=== PATIENT | female | born 1930 | race Caucasian/White ===

== ENCOUNTER → 2018-12-14 | Day surgery (SDC) | payer MEDICARE ==
[2018-12-13 14:11] LABS: BASOPHILS # (AUTO) 0.1 (0.0-0.1); BASOPHILS % 0.6 % (0.0-1.0); EOSINOPHILS # (AUTO) 0.1 (0.0-0.4); EOSINOPHILS % 1.6 % (0.0-6.0); HEMATOCRIT 42.2 % (34.2-44.1); HEMOGLOBIN 13.4 g/dL (12.0-16.0); LYMPHOCYTES # (AUTO) 1.8 (1.0-3.2); LYMPHOCYTES % 22.3 % (18.0-39.1); MEAN CORPUSCULAR HEMOGLOBIN 29.6 pg (28-32); MEAN CORPUSCULAR HGB CONC 31.8 g/dL (31-35); MEAN CORPUSCULAR VOLUME 93.2 fL (81-99); MONOCYTES # (AUTO) 0.7 (0.2-0.8); MONOCYTES % 8.2 % (4.4-11.3); NEUTROPHILS # (AUTO) 5.3 (2.1-6.9); PLATELET COUNT 217 x10e3/uL (140-360); RED BLOOD COUNT 4.53 x10e6/uL (3.6-5.1)
[~2018-12-14] MED LIST: ADVAIR 250-501 EACH INH; ARTIFICIAL TEAR15 ML OU; ASPERCREME 4% TOP; COREG3.125 MG PO; DILTIAZEM HCL60 MG PO; DOCUSATE SODIU100 MG PO; DULCOLAX5 MG PO; FUROSEMIDE20 MG PO; GABAPENTIN300 MG PO; IPRAT-ALBUT 0.5-3 ML IH; KLOR-CON 1010 MEQ PO; LAXATIVE SUPPOS10 MG PR; LEVALBUTER1.25 MG/0. INH; LEVEMIR100 UNIT/1 SQ; METAMUCIL FIBE3.4 GM PO; MULTIVITAMINS1 EAC6 PO; NOVOLOG100 UNIT/1 SQ; PANTOPRAZOLE SO40 MG PO; PROPOFOL IV EMULSION 10 MG/ML 50 ML VIAL ONE; SYNTHROID100 MCG PO; TRAZODONE HCL100 MG PO; XARELTO10 MG PO
--- OUTSIDE RECORDS SUMMARY | 2018-12-14 05:48 | XMS REPORT | Clinical Summary ---
Author Author [facility] Organization [facility] Address Unknown Phone Unavailable Care Team Providers Care Tanker Service Attendant Name Role Phone Ayaz Burrell MD PCP Allergies No Known Allergies Medications Not on file Active Problems Not on file Encounters Care Team Description Date Type Specialty Ayaz Burrell MD Pain of both hip joints 04/23/2018 Hospital Radiology Encounter Ayaz Burrell MD Pain of both hip joints 04/23/2018 Hospital Radiology Encounter Ayaz Burrell MD Arthralgia of hip, unspecified laterality (Primary Dx) 04/07/2018 Transcribe Access Orders Ayaz Burrell MD Pain of both hip joints (Primary Dx) 04/06/2018 Transcribe Access Orders after 12/13/2017 Social History Date Tobacco Use Types Packs/Day Years Used Never Assessed Sex Assigned at Date Recorded Not on file Industry Job Start Date Occupation Not on file Not on file Not on file Travel End Travel History Travel Start No recent travel history available. Last Filed Vital Signs Not on file Plan of Treatment Health Maintenance Due Date Last Done Comments SHINGLES VACCINES (#1) 1982 65+ PNEUMOCOCCAL VACCINE 1997 06/09/2010 (2 of 2 - PPSV23) INFLUENZA VACCINE 11/25/2018 Procedures Comments Procedure Name Priority Date/Time Associated Diagnosis MRI LOWER EXTREMITY JOINT Routine 04/23/2018 Pain of both hip joints W WO CONTRAST RIGHT 2:54 PM [facility] MRI LOWER EXTREMITY JOINT Routine 04/23/2018 Pain of both hip joints W WO CONTRAST LEFT 2:52 PM [facility] ESTIMATED GFR Routine 04/23/2018 1:16 PM [facility] POC CREATININE Routine 04/23/2018 1:16 PM [facility] after 12/13/2017 Results * MRI Lower Extremity Joint W Wo Contrast Right (04/23/2018 2:54 PM [facility]) Specimen Narrative Performed At EXAM: MRI LOWER EXTREMITY JOINT W WO CONTRAST RIGHT [facility] CLINICAL DATA:M25.551 Pain in right hip, M25.552 Pain in left hip, HIP PAIN COMPARISON: NONE. FINDINGS: 1. Bone marrow:No marrow edema, stress change/fracture or avascular necrosis. 2. Joint/Cartilage: Moderate osteoarthrosis of the hip with high-grade chondromalacia of the anterosuperior acetabulum. There is also some high-grade chondromalacia of the posterior acetabulum. High-grade chondromalacia of the anterosuperior femoral head. 3. Labrum: Degenerative tearing of the anterior, anterosuperior, and superior labrum. This extends to the level of the posterior labrum. There is perilabral cyst formation which is most prominent involving the anterosuperior labrum. 4. Femoroacetabular Impingement Assessment: Femoral head neck offset is appropriate. No evidence of acetabular dysplasia. 5. Extra Articular Hip Impingement Assessment: *Subspine: No excess bone or proliferative changes at the anterior inferior iliac spine. *Iliopsoas:The iliopsoas tendon is intact and unremarkable. *Quadratus Femoris: The quadratus femoris space is not narrowed. No specific findings of ischiofemoral impingement. 6. Gluteal Tendons: Insertional abductor tendinopathy and peritendinitis with partial tearing of the gluteus minimus footprint and lateral footprint of gluteus medius with associated trochanteric bursitis. 7. Hamstring Origins: Tendinosis without tear 8. Sciatic Nerve: Proximal sciatic nerve unremarkable. 9. Bursitis: Mild greater trochanteric bursitis 10. Major Muscle Groups: No muscle strains, edema or asymmetric atrophy. 11. Joint effusion: Small hip joint effusion.. 12. Soft tissues: Trabeculation of the bladder with small diverticula. Correlate for bladder outlet obstruction. Scattered diverticula of the sigmoid colon. Uterus appears absent. 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 2.Insertional abductor tendinopathy with peritendinitis, greater trochanteric bursitis, and partial tearing of the gluteus minimus footprint and lateral footprint of gluteus medius. 3.Additional findings and details as above. [facility]-[id number] Procedure Note Hm Interface, Radiology Results - 04/23/2018 3:26 PM [facility] EXAM: MRI LOWER EXTREMITY JOINT W WO CONTRAST RIGHT CLINICAL DATA: M25.551 Pain in right hip, M25.552 Pain in left hip, HIP PAIN COMPARISON: NONE. FINDINGS: 1. Bone marrow:No marrow edema, stress change/fracture or avascular necrosis. 2. Joint/Cartilage: Moderate osteoarthrosis of the hip with high-grade chondromalacia of the anterosuperior acetabulum. There is also some high-grade chondromalacia of the posterior acetabulum. High-grade chondromalacia of the anterosuperior femoral head. 3. Labrum: Degenerative tearing of the anterior, anterosuperior, and superior labrum. This extends to the level of the posterior labrum. There is perilabral cyst formation which is most prominent involving the anterosuperior labrum. 4. Femoroacetabular Impingement Assessment: Femoral head neck offset is appropriate. No evidence of acetabular dysplasia. 5. Extra Articular Hip Impingement Assessment: * Subspine: No excess bone or proliferative changes at the anterior inferior iliac spine. * Iliopsoas:The iliopsoas tendon is intact and unremarkable. * Quadratus Femoris: The quadratus femoris space is not narrowed. No specific findings of ischiofemoral impingement. 6. Gluteal Tendons: Insertional abductor tendinopathy and peritendinitis with partial tearing of the gluteus minimus footprint and lateral footprint of gluteus medius with associated trochanteric bursitis. 7. Hamstring Origins: Tendinosis without tear 8. Sciatic Nerve: Proximal sciatic nerve unremarkable. 9. Bursitis: Mild greater trochanteric bursitis 10. Major Muscle Groups: No muscle strains, edema or asymmetric atrophy. 11. Joint effusion: Small hip joint effusion.. 12. Soft tissues: Trabeculation of the bladder with small diverticula. Correlate for bladder outlet obstruction. Scattered diverticula of the sigmoid colon. Uterus appears absent. IMPRESSION: 1. 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 2. Insertional abductor tendinopathy with peritendinitis, greater trochanteric bursitis, and partial tearing of the gluteus minimus footprint and lateral footprint of gluteus medius. 3. Additional findings and details as above. [facility]-[id number] Performing Organization Address City/State/Zipcode Phone Number [facility] [address] [place] [address] * MRI Lower Extremity Joint W Wo Contrast Left (04/23/2018 2:52 PM [facility]) Specimen Narrative Performed At [facility] EXAM: MRI LOWER EXTREMITY JOINT W WO CONTRAST LEFT CLINICAL DATA:M25.551 Pain in right hip, M25.552 Pain in left hip, Hip painchronicinitial exam COMPARISON: None available FINDINGS: 1. Bone marrow:No marrow edema, stress change/fracture or avascular necrosis. 2. Joint/Cartilage: There is mild to moderate osteoarthrosis of the left hip with diffuse chondral thinning. 3. Labrum: Degenerative tearing of the anterior and anterosuperior labrum extending to the level of the superior labrum with perihilar labral cyst formation which propagates anteriorly along the left iliopsoas tendon. 4. Femoroacetabular Impingement Assessment: Femoral head neck offset appears appropriate. 5. Extra Articular Hip Impingement Assessment: *Subspine: No excess bone or proliferative changes at the anterior inferior iliac spine. *Iliopsoas:The iliopsoas tendon is intact and unremarkable. *Quadratus Femoris: The quadratus femoris space is not narrowed. No specific findings of ischiofemoral impingement. 6. Gluteal Tendons: Insertional abductor tendinopathy and peritendinitis with mild greater trochanteric bursitis. There is partial tearing of the gluteus minimus footprint. 7. Hamstring Origins: Hamstring tendinosis without evidence of tear. 8. Sciatic Nerve: Proximal sciatic nerve unremarkable. 9. Bursitis: Mild greater trochanteric bursitis 10. Major Muscle Groups: No muscle strains, edema or asymmetric atrophy. 11. Joint effusion: Small hip joint effusion with synovitis.. 12. Soft tissues: Trabeculation of the bladder with small diverticula. Uterus appears absent. Few diverticula of the sigmoid colon. No free fluid in the pelvis. No definite pelvic adenopathy. IMPRESSION: 1.Mild to moderate osteoarthrosis of the left hip with partial thickness chondromalacia and degenerative labral tearing with perilabral cyst formation as detailed above. 2.Insertional abductor tendinopathy with peritendinitis and mild trochanteric bursitis. There is partial tearing of the gluteus minimus footprint. 3.Trabecular thickening of the bladder with bladder diverticula. Correlate for bladder outlet obstruction. 4.Additional findings and details as above. [facility]-[id number] Procedure Note Interface, Radiology Results Incoming - 04/23/2018 3:09 PM [facility] EXAM: MRI LOWER EXTREMITY JOINT W WO CONTRAST LEFT CLINICAL DATA: M25.551 Pain in right hip, M25.552 Pain in left hip, Hip pain chronic initial exam COMPARISON: None available FINDINGS: 1. Bone marrow:No marrow edema, stress change/fracture or avascular necrosis. 2. Joint/Cartilage: There is mild to moderate osteoarthrosis of the left hip with diffuse chondral thinning. 3. Labrum: Degenerative tearing of the anterior and anterosuperior labrum extending to the level of the superior labrum with perihilar labral cyst formation which propagates anteriorly along the left iliopsoas tendon. 4. Femoroacetabular Impingement Assessment: Femoral head neck offset appears appropriate. 5. Extra Articular Hip Impingement Assessment: * Subspine: No excess bone or proliferative changes at the anterior inferior iliac spine. * Iliopsoas:The iliopsoas tendon is intact and unremarkable. * Quadratus Femoris: The quadratus femoris space is not narrowed. No specific findings of ischiofemoral impingement. 6. Gluteal Tendons: Insertional abductor tendinopathy and peritendinitis with mild greater trochanteric bursitis. There is partial tearing of the gluteus minimus footprint. 7. Hamstring Origins: Hamstring tendinosis without evidence of tear. 8. Sciatic Nerve: Proximal sciatic nerve unremarkable. 9. Bursitis: Mild greater trochanteric bursitis 10. Major Muscle Groups: No muscle strains, edema or asymmetric atrophy. 11. Joint effusion: Small hip joint effusion with synovitis.. 12. Soft tissues: Trabeculation of the bladder with small diverticula. Uterus appears absent. Few diverticula of the sigmoid colon. No free fluid in the pelvis. No definite pelvic adenopathy. IMPRESSION: 1. Mild to moderate osteoarthrosis of the left hip with partial thickness chondromalacia and degenerative labral tearing with perilabral cyst formation as detailed above. 2. Insertional abductor tendinopathy with peritendinitis and mild trochanteric bursitis. There is partial tearing of the gluteus minimus footprint. 3. Trabecular thickening of the bladder with bladder diverticula. Correlate for bladder outlet obstruction. 4. Additional findings and details as above. [facility]-[id number] Performing Organization Address City/[facility]/Zipcode Phone Number [facility] [address] [place] [address] * Estimated GFR (04/23/2018 1:16 PM [facility]) Pathologist [facility] Estimated GFR 31 (A) mL/min/1.73 m2 PAW PAW Comment: EMERGENCY CARE CatergoryUnitsOn License Of [facility] rpretation G1 >=90 Normal or high G2 60-89Mildly decreased A6n25-04 Mildly to moderately decreased C4p46-89 Moderately to severely decreased G4 15-29Severely decreased G5 <15Kidney failure The eGFR was calculated using the Chronic Kidney Disease Epidemiology Collaboration (CKD-EPI) equation. Interpretation is based on recommendations of the National Kidney Foundation-Kidney Disease Outcomes Quality Initiative (NKF-KDOQI) published in 2014. Specimen Blood Performing Organization Address [facility] Hospital[facility] Phone Number [facility] [address] [place] [address] [facility] [place] [address] CENTER * POC creatinine (04/23/2018 1:16 PM REPEATER CHIEF) [facility] POC creatinine 1.5 (H) 0.5 - 0.9 mg/dl PAW PAW Comment: EMERGENCY CARE Meter ID: [id number] EXIRA Rn Orthopaedic: Vipin Khalil Specimen Blood Performing Organization Address City/[facility]/[place] [address] [address] PATH[facility] [place] [address] CENTER after 12/13/2017 Insurance Type Payer Benefit Subscriber ID Effective Phone Address Plan / Dates Group HMO [employer]US TEXANPLUS xxxxxxxxx 2017-P [id number] resent Medicaid MEDICAID MEDICAID xxxxxxxxx 2017-P resent Advance Directives For more information, please contact: [phone] Patient Conference Coordinator Explanation Type Date Recorded Advance Directives, 09/26/2015 7:29 PM Living Will and Medical Power of Parking Ramp Attendant
--- OUTSIDE RECORDS SUMMARY | 2018-12-14 05:49 | XMS REPORT | Clinical Summary ---
Author Author NAVEEN [facility] [employer] [facility] Address Unknown Phone Unavailable Care Team Providers Care Services Delivery Driver Name Role Phone Florencio Venegas MD PCP Allergies Comments Active Allergy Reactions Severity Noted Date Stomach buring Codeine Other (See Low 11/01/2015 Comments) Ibuprofen Swelling Low 11/01/2015 Medications End Date Status Medication Sig Dispensed Refills Start Date Active LORazepam (ATIVAN) 0.5 MG Take 0.5 mg 0 tablet by mouth 2 (two) times daily Patient takes at 6pm and 10pm. Active levothyroxine (SYNTHROID, Take 100 mcg 0 LEVOTHROID) 100 MCG by mouth tablet Every morning on an empty stomach. Active valsartan (DIOVAN) 160 MG Take 160 mg 0 tablet by mouth daily. Active gabapentin (NEURONTIN) Take 300 mg 0 300 MG capsule by mouth 3 (three) times daily. Active fluticasone-salmeterol Inhale 1 puff 0 (ADVAIR) 250-50 mcg/dose by mouth via diskus inhaler inhaler every 12 (twelve) hours. Active insulin detemir (LEVEMIR) Inject 18 0 100 unit/mL (3 mL) InPn Units injection subcutaneousl y every morning . Active insulin aspart (NOVOLOG) Inject 6 0 100 unit/mL InPn Units subcutaneousl y 2 (two) times daily with breakfast and dinner . Active pyridoxine, vitamin B6, Take 100 mg 0 (B-6) 100 MG tablet by mouth daily. Active cholecalciferol, vitamin Take 1,000 0 D3, 1,000 unit capsule Units by mouth daily. Active ascorbic acid (VITAMIN C) Take 1,000 mg 0 1000 MG tablet by mouth daily. Active biotin 10,000 mcg Cap Take 1 tablet 0 by mouth daily. Active potassium chloride Take 10 mEq 0 (KLOR-CON) 10 MEQ CR by mouth tablet every other day. Active aspirin 81 MG EC tablet Take 81 mg by 0 mouth daily. Active ipratropium-albuterol Take 3 mLs by 0 (DUO-NEB) 0.5 mg-3 mg(2.5 nebulization mg base)/3 mL nebulizer as needed for solution Wheezing. 08/26/2019 Active dilTIAZem (CARDIZEM) 90 Take 1 tablet 0 MG tablet (90 mg total) 9 by mouth every 12 (twelve) hours. 08/25/2019 Active levalbuterol (XOPENEX) Take 0.25 mLs 1 each 0 1.25 mg/0.5 mL nebulizer (0.63 mg 9 solution total) by nebulization every 6 (six) hours. Active pantoprazole (PROTONIX) Take 1 tablet 0 40 MG tablet (40 mg total) 9 by mouth daily. Active rivaroxaban (XARELTO) 15 Take 1 tablet 0 mg Tab tablet (15 mg total) 9 by mouth daily with dinner. 08/26/2019 Active furosemide (LASIX) 40 MG Take 0.5 90 tablet 0 tablet tablets (20 9 mg total) by mouth daily. 08/25/2018 Discontinued albuterol (PROVENTIL) 2.5 Take 0.5 mLs 0 mg/0.5 mL Nebu nebulizer (2.5 mg 6 solution total) by nebulization every 4 (four) hours. 08/25/2018 Discontinued vancomycin (VANCOCIN) 1G Inject 1,000 0 IV in NS 250 ML mg 6 (ADD-VANTAGE) intravenously daily. 09/04/2018 bisacodyl (DULCOLAX) 10 Place 1 12 0 mg suppository suppository suppository 9 (10 mg total) rectally daily as needed for up to 10 days. 09/05/2018 predniSONE (DELTASONE) 20 Take 2 0 MG tablet tablets (40 9 mg total) by mouth daily for 10 days. 09/04/2018 cefdinir (OMNICEF) 300 MG Take 1 5 capsule 0 capsule capsule (300 9 mg total) by mouth daily for 10 days. 08/26/2018 Discontinued furosemide (LASIX) 40 MG Take 1 tablet 90 tablet 0 tablet (40 mg total) 9 by mouth daily. Active Problems Problem Noted Date SOB (shortness of breath) 08/18/2018 Hemarthrosis involving knee joint, right 03/11/2016 Leukocytosis 03/07/2016 Type 2 diabetes mellitus 03/07/2016 Hyponatremia 03/06/2016 Sepsis 03/03/2016 Acute renal failure, unspecified acute renal failure type 03/02/2016 Dizziness 02/27/2016 Orthostatic hypotension 11/02/2015 Unsteady gait 11/02/2015 Colon cancer 11/02/2015 Diabetes mellitus 11/02/2015 CKD stage 3 due to type 2 diabetes mellitus 11/02/2015 Arthritis of left ankle 11/01/2015 Peripheral neuropathy Encounters Care Team Description Date Type Specialty Keli Foster MD Ramiz, Naila, MD SOB (shortness of breath) (Primary Dx); Cough; Wheezing; Pneumonia of both lungs due to infectious organism, unspecified part of lung; Hyponatremia; SHARIFA (acute kidney injury) (HCC) 08/18/2018 [facility] General Internal Medicine - Encounter 08/26/2018 08/18/2018 Orders Only General Internal Medicine 08/18/2018 Travel after 12/13/2017 Family History Medical History Relation Name Comments Emphysema Father Heart disease Mother Cancer Sister Relation Name Status Comments Father Mother Sister Social History Date Tobacco Use Types Packs/Day Years Used Never Smoker Smokeless Tobacco: Never Used Alcohol Use Drinks/Week oz/Week Comments No Sex Assigned at Date Recorded Not on file Industry Job Start Date Occupation Not on file Not on file Not on file Travel End Travel History Travel Start No recent travel history available. Last Filed Vital Signs Time Taken Vital Sign Reading 08/26/2018 7:00 PM CDT Blood Pressure 149/74 08/26/2018 8:30 PM CDT Pulse 89 08/26/2018 7:00 PM CDT Temperature 36.2 C (97.1 F) 08/26/2018 8:30 PM CDT Respiratory Rate 20 08/26/2018 8:30 PM CDT Oxygen Saturation 100% 08/26/2018 12:30 AM CDT Inhaled Oxygen 30% Concentration 08/25/2018 6:38 AM CDT Weight 93 kg (205 lb) 08/18/2018 6:47 PM CDT Height 162.6 cm (5' 4") 08/25/2018 6:38 AM CDT Body Mass Index 35.19 Plan of Treatment Care Team Description Date Type Specialty Stephen Rose MD [address] [place] [id number] [phone] 12/20/2018 Hospital Encounter Procedures Comments Procedure Name Priority Date/Time Associated Diagnosis RHYTHM STRIP - SCAN 08/30/2018 10:51 AM CDT RHYTHM STRIP - SCAN 08/30/2018 10:50 AM CDT RHYTHM STRIP - SCAN 08/27/2018 3:40 PM CDT REPORT OF PROCEDURE - 08/27/2018 ENDOSCOPY SCAN 3:40 PM CDT POCT-GLUCOSE METER Routine 08/26/2018 7:51 PM CDT CBC W/PLT COUNT & AUTO Routine 08/26/2018 DIFFERENTIAL 6:22 AM CDT COMPREHENSIVE METABOLIC Routine 08/26/2018 PANEL 6:22 AM CDT CBC W/PLT COUNT & AUTO Routine 08/26/2018 DIFFERENTIAL 6:22 AM CDT BASIC METABOLIC PANEL (7) Routine 08/26/2018 6:22 AM CDT XR CHEST 1 VIEW Routine 08/26/2018 PORTABLE/BEDSIDE 5:56 AM CDT POCT-GLUCOSE METER Routine 08/26/2018 5:43 AM CDT POCT-GLUCOSE METER Routine 08/26/2018 12:49 AM CDT POCT-GLUCOSE METER Routine 08/25/2018 8:06 PM CDT VANCOMYCIN LEVEL, TROUGH Timed 08/25/2018 7:17 PM CDT POCT-GLUCOSE METER Routine 08/25/2018 12:55 PM CDT B-TYPE NATRIURETIC FACTOR Routine 08/25/2018 (BNP) 6:38 AM CDT POCT-GLUCOSE METER Routine 08/25/2018 6:26 AM CDT POCT-GLUCOSE METER Routine 08/24/2018 8:36 PM CDT POCT-GLUCOSE METER Routine 08/24/2018 3:59 PM CDT POCT-GLUCOSE METER Routine 08/24/2018 11:35 AM CDT (MANUAL DIFFERENTIAL) Routine 08/24/2018 6:22 AM CDT CBC W/PLT COUNT & AUTO Routine 08/24/2018 DIFFERENTIAL 6:22 AM CDT CBC W/PLT COUNT & AUTO Routine 08/24/2018 DIFFERENTIAL 6:22 AM CDT B-TYPE NATRIURETIC FACTOR Routine 08/24/2018 (BNP) 6:22 AM CDT BASIC METABOLIC PANEL (7) Routine 08/24/2018 6:22 AM CDT POCT-GLUCOSE METER Routine 08/24/2018 6:21 AM CDT XR CHEST 1 VIEW Routine 08/24/2018 PORTABLE/BEDSIDE 6:15 AM CDT POCT-GLUCOSE METER Routine 08/23/2018 8:28 PM CDT VANCOMYCIN LEVEL, TROUGH Timed 08/23/2018 4:25 PM CDT POCT-GLUCOSE METER Routine 08/23/2018 11:27 AM CDT POCT-GLUCOSE METER Routine 08/23/2018 6:34 AM CDT XR CHEST PA OR AP 1 VIEW Routine 08/23/2018 IN DEPT. 6:21 AM CDT XR ABDOMEN 1 VIEW Routine 08/23/2018 6:21 AM CDT CBC W/PLT COUNT & AUTO Routine 08/23/2018 DIFFERENTIAL 4:19 AM CDT CBC W/PLT COUNT & AUTO Routine 08/23/2018 DIFFERENTIAL 4:19 AM CDT B-TYPE NATRIURETIC FACTOR Routine 08/23/2018 (BNP) 4:19 AM CDT BASIC METABOLIC PANEL (7) Routine 08/23/2018 4:19 AM CDT POCT-GLUCOSE METER Routine 08/22/2018 7:59 PM CDT POCT-GLUCOSE METER Routine 08/22/2018 11:50 AM CDT B-TYPE NATRIURETIC FACTOR Routine 08/22/2018 (BNP) 5:21 AM CDT BASIC METABOLIC PANEL (7) Routine 08/22/2018 5:21 AM CDT POCT-GLUCOSE METER Routine 08/21/2018 10:43 PM CDT ECG 12-LEAD Routine 08/21/2018 10:38 PM CDT MAGNESIUM Routine 08/21/2018 8:27 PM CDT BASIC METABOLIC PANEL (7) Routine 08/21/2018 8:27 PM CDT POCT-GLUCOSE METER Routine 08/21/2018 5:05 PM CDT BLOOD GAS, ARTERIAL Routine 08/21/2018 4:39 PM CDT XR ABDOMEN 1 VIEW STAT 08/21/2018 4:35 PM CDT B-TYPE NATRIURETIC FACTOR STAT 08/21/2018 (BNP) 12:42 PM CDT VANCOMYCIN LEVEL, TROUGH Timed 08/21/2018 12:42 PM CDT POCT-GLUCOSE METER Routine 08/21/2018 11:26 AM CDT POCT-GLUCOSE METER Routine 08/21/2018 8:39 AM CDT ECHOCARDIOGRAM REPORT - 08/20/2018 SCAN 9:24 PM CDT POCT-GLUCOSE METER Routine 08/20/2018 4:50 PM CDT POCT-GLUCOSE METER Routine 08/20/2018 8:45 AM CDT POCT-GLUCOSE METER Routine 08/20/2018 7:40 AM CDT REPORT OF PROCEDURE - 08/20/2018 ENDOSCOPY SCAN 7:30 AM CDT POCT-GLUCOSE METER Routine 08/19/2018 4:34 PM CDT 2D ECHO W/ DOPPLER Routine 08/19/2018 (CW/PW/COLOR) 4:[address] CHEST WITHOUT IV STAT 08/19/2018 CONTRAST 9:50 AM CDT POCT-GLUCOSE METER Routine 08/19/2018 9:13 AM CDT TROPONIN I STAT 08/19/2018 2:26 AM CDT TROPONIN I STAT 08/18/2018 11:13 PM CDT ECG 12-LEAD Routine 08/18/2018 8:54 PM CDT Procedure Note - Interface, External Ris In - 08/18/2018 8:53 PM CDT Ventricula r Rate 69 BPM Atrial Rate 69 BPM P-R Interval 274 ms QRS Duration 100 ms Q-T Interval 434 ms QTC Calculatio n(Bazett) 465 ms R [place] -28 degrees T [place] 45 degrees Sinus rhythm with 1st degree AV block Otherwise normal ECG When compared with ECG of 7 15:30, premature supraventr icular complexes are no longer present MA interval has increased Criteria for Septal infarct are no longer present Nonspecifi c T wave abnormalit y no longer evident in Anterior leads ECG 12-LEAD STAT 08/18/2018 8:54 PM CDT LACTIC ACID, VENOUS STAT 08/18/2018 8:46 PM CDT BLOOD CULTURE STAT 08/18/2018 8:46 PM CDT BLOOD CULTURE STAT 08/18/2018 8:46 PM CDT TROPONIN I STAT 08/18/2018 8:37 PM CDT RESPIRATORY PANEL [facility] Routine 08/18/2018 8:33 PM CDT RAPID INFLUENZA A&B STAT 08/18/2018 SCREEN 8:33 PM CDT CBC W/PLT COUNT & AUTO STAT 08/18/2018 DIFFERENTIAL 8:32 PM CDT TSH/FREE T4 IF INDICATED STAT 08/18/2018 8:32 PM CDT COMPREHENSIVE METABOLIC STAT 08/18/2018 PANEL 8:32 PM CDT B-TYPE NATRIURETIC FACTOR STAT 08/18/2018 (BNP) 8:32 PM CDT CBC W/PLT COUNT & AUTO STAT 08/18/2018 DIFFERENTIAL 8:32 PM CDT XR CHEST 2 VIEWS STAT 08/18/2018 7:59 PM CDT ED ECG INTERPRETATION Routine 08/18/2018 6:52 PM CDT after 12/13/2017 Results * RHYTHM STRIP - SCAN (08/30/2018 10:51 AM CDT) Only the most recent of 3 results within the time period is included. Narrative Performed At * EKG-SCANNED (08/27/2018 3:40 PM CDT) Only the most recent of 2 results within the time period is included. Narrative Performed At * POC-Glucose meter (08/26/2018 7:51 PM CDT) Only the most recent of 24 results within the time period is included. POC-Glucose Meter 339 (H)Comment: TESTED AT [facility] 70 - 110 mg/dL [facility] [address] [facility] [place] [address] Specimen Blood Performing Organization Address City/State/Zipcode Phone Number [facility] [address] [place] [address] [facility] * CBC with platelet count + automated diff (08/26/2018 6:22 AM CDT) Only the most recent of 4 results within the time period is included. WBC 16.8 (H) 4.0 - 10.0 K/L [facility] RBC 4.00 4.00 - 5.00 M/L [facility] Hemoglobin 11.9 (L) 12.0 - 15.5 GM/DL [facility] Hematocrit 35.4 (L) 36.0 - 46.0 % [facility] MCV 88.5 82.0 - 99.0 fL [facility] MCH 29.8 27.0 - 33.0 pg [facility] MCHC 33.6 32.0 - 36.0 GM/DL [facility] RDW 12.3 12.0 - 15.0 % [facility] Platelets 214 150 - 430 K/CU MM [facility] MPV 9.2 6.0 - 11.5 fL [facility] nRBC 0 0 - 0 /100 WBC [facility] % Neutros 85 % [facility] % Lymphs 6 % [facility] % Monos 8 % [facility] % Eos 0 % [facility] % Baso 0 % [facility] # Neutros 14.20 (H) 1.80 - 8.00 K/L [facility] # Lymphs 1.07 (L) 1.48 - 4.50 K/L [facility] # Monos 1.35 (H) 0.00 - 1.30 K/L [facility] # Eos 0.01 0.00 - 0.50 K/L [facility] # Baso 0.01 0.00 - 0.20 K/L [facility] Immature 1 (H) 0 - 0 % [facility] Granulocytes-Relative Specimen Blood Performing Organization Address City/State/Zipcode Phone Number [facility] [address] [address] [facility] [address] [address] * Comprehensive metabolic panel (08/26/2018 6:22 AM CDT) Only the most recent of 2 results within the time period is included. Protein, Total 6.5 6.0 - 8.5 gm/dL [facility] Albumin 3.7 3.5 - 5.0 g/dL [facility] Alkaline Phosphatase 50 30 - 115 U/L [facility] Total Bilirubin 0.4 0.1 - 1.2 mg/dL [facility] Sodium 135 135 - 148 meq/L [facility] Potassium 3.6 3.6 - 5.5 meq/L [facility] Chloride 97 (L) 98 - 106 meq/L [facility] CO2 28 20 - 29 meq/L [facility] BUN 39 (H) 10 - 26 mg/dL [facility] Creatinine 1.30 (H) 0.50 - 1.20 mg/dL [facility] Glucose 245 (H) 70 - 110 mg/dL [facility] Calcium 9.2 8.5 - 10.5 mg/dL [facility] AST 15 5 - 40 U/L [facility] ALT 21 5 - 50 U/L [facility] EGFR 39Comment: ESTIMATED GFR IS mL/min/1.73 sq m [facility] NOT ACCURATE CREATININE CLEARANCE IN PREDICTING GLOMERULAR FILTRATION RATE. ESTIMATED GFR IS NOT APPLICABLE FOR DIALYSIS PATIENTS. Specimen Blood Performing Organization Address City/State/Zipcode Phone Number [facility] [place] [address] [facility] [place] [address] * Basic Metabolic Panel (08/26/2018 6:22 AM CDT) Only the most recent of 5 results within the time period is included. Sodium 135 135 - 148 meq/L [facility] Potassium 3.6 3.6 - 5.5 meq/L [facility] Chloride 97 (L) 98 - 106 meq/L [facility] CO2 28 20 - 29 meq/L [facility] BUN 39 (H) 10 - 26 mg/dL [facility] Creatinine 1.30 (H) 0.50 - 1.20 mg/dL [facility] Glucose 245 (H) 70 - 110 mg/dL [facility] Calcium 9.2 8.5 - 10.5 mg/dL [facility] EGFR 39Comment: ESTIMATED GFR IS mL/min/1.73 sq m [facility] NOT ACCURATE CREATININE CLEARANCE IN PREDICTING GLOMERULAR FILTRATION RATE. ESTIMATED GFR IS NOT APPLICABLE FOR DIALYSIS PATIENTS. Specimen Blood Performing Organization Address City/[facility]/Zipcode Phone Number [facility] [place] [address] [facility] [place] [address] * XR chest 1 view portable / bedside (08/26/2018 5:56 AM CDT) Only the most recent of 2 results within the time period is included. Specimen Narrative Performed At FINAL REPORT GE RIS CHEST AP PORTABLE ERECT Comparison exam: 08/24/2018 History provided: Pneumonia Heart size magnified by projection. Lungs grossly free of acute disease and vascularity normal. Signed: Briana Gupta MD Report Verified Date/Time:08/26/2018 07:57:26 Reading Location: [facility] Diagnostic Imaging Reading Room - [facility] 1310.12 Procedure Note Interface, External Ris In - 08/26/2018 7:59 AM CDT FINAL REPORT CHEST AP PORTABLE ERECT Comparison exam: 08/24/2018 History provided: Pneumonia Heart size magnified by projection. Lungs grossly free of acute disease and vascularity normal. Signed: Briana Gupta MD Report Verified Date/Time: 08/26/2018 07:57:26 Reading Location: [facility] Diagnostic Imaging Reading Room - [facility] [phone] Performing Organization Address City/[facility] Phone Number [employer] * Vancomycin level, trough (08/25/2018 7:17 PM CDT) Only the most recent of 3 results within the time period is included. Vancomycin Tr 22.0 (H) 10.0 - 20.0 ug/mL [facility] Specimen Blood Performing Organization Address City/[facility]/Zipcode Phone Number [facility] [place] [address] [facility] [place], [place] [id number] * B-type Natriuretic Factor (BNP) (08/25/2018 6:38 AM CDT) Only the most recent of 6 results within the time period is included. BNP 382 (H) 0 - 100 pg/mL [facility] Specimen Blood Performing Organization Address City/[facility] Phone Number [facility] [place] [address] [facility] [place] [address] * Manual Differential (08/24/2018 6:22 AM CDT) % Neutros (manual) 94 % [facility] % Lymphs (manual) 4 % [facility] % Monos (manual) 1 % [facility] % Eos (manual) 0 % [facility] % Baso (manual) 0 % [facility] % Bands (manual) 1 0 - 10 % [facility] # Neutros (manual) 12.88 (H) 1.80 - 8.00 K/L [facility] # Lymphs (manual) 0.55 (L) 1.48 - 4.50 K/L [facility] # Monos (manual) 0.14 0.00 - 1.30 K/L [facility] # Eos (manual) 0.00 0.00 - 0.50 K/L [facility] # Baso (manual) 0.00 0.00 - 0.20 K/L [facility] # Bands (manual) 0.1 0.0 - 0.8 K/L [facility] Total Counted 100 [facility] Bands plus Segmented 13.02 [facility] Neutrophils WBC Morphology Normal [facility] Platelet Morphology Normal [facility] RBC Morphology Normal [facility] Specimen Blood Performing Organization Address City/[facility] Phone Number [facility] [place] [address] [facility] [place] [address] * XR chest PA or AP 1 view in dept (08/23/2018 6:21 AM CDT) Specimen Narrative Performed At FINAL REPORT GE RIS AP view of the chest dated 08/23/2018 CLINICAL INFORMATION: pna Comment:Heart is enlarged. Pulmonary vasculature is unremarkable. Previously noted. Interstitial pulmonary disease in the right lower lobe has resolved. Lungs are clear. No pulmonary infiltrate or pleural effusion is present. There is interval placement of nasogastric tube. Signed: Abdullahi Salas MD Report Verified Date/Time:08/23/2018 07:32:25 Reading Location: [facility] Radiology Reading Room Procedure Note Interface, External Ris In - 08/23/2018 7:34 AM CDT FINAL REPORT AP view of the chest dated 08/23/2018 CLINICAL INFORMATION: pna Comment: Heart is enlarged. Pulmonary vasculature is unremarkable. Previously noted. Interstitial pulmonary disease in the right lower lobe has resolved. Lungs are clear. No pulmonary infiltrate or pleural effusion is present. There is interval placement of nasogastric tube. Signed: Abdullahi Salas MD Report Verified Date/Time: 08/23/2018 07:32:25 Reading Location: [facility] Radiology Reading Room Performing Organization Address City/State/Zipcode Phone Number [facility] * XR abdomen / KUB 1 view (08/23/2018 6:21 AM CDT) Only the most recent of 2 results within the time period is included. Specimen Narrative Performed At FINAL REPORT GE RIS Comparison: 08/21/2018 TECHNIQUE: Frontal images of the abdomen FINDINGS: Bowel gas pattern is nonspecific. No gross free intraperitoneal air. Tip of nasogastric projects in distal stomach. Electrical generator projects over the right abdomen. No acute skeletal abnormality. Signed: Emile Alonso MD Report Verified Date/Time:08/23/2018 08:21:00 Reading Location: [facility] Radiology Reading Room Procedure Note Interface, External Ris In - 08/23/2018 8:23 AM CDT FINAL REPORT Comparison: 08/21/2018 TECHNIQUE: Frontal images of the abdomen FINDINGS: Bowel gas pattern is nonspecific. No gross free intraperitoneal air. Tip of nasogastric projects in distal stomach. Electrical generator projects over the right abdomen. No acute skeletal abnormality. Signed: Emile Alonso MD Report Verified Date/Time: 08/23/2018 08:21:00 Reading Location: [facility] Radiology Reading Room Performing Organization Address City/[facility] Phone Number [facility] * ECG 12 lead (08/21/2018 10:38 PM CDT) Only the most recent of 2 results within the time period is included. Specimen Narrative Performed At Ventricular Rate 113 BPM [facility] MUSE Atrial Rate 234 BPM QRS Duration 98 ms Q-T Interval 322 ms QTC Calculation(Bazett) 441 ms R [place] -23 degrees T [place] 118 degrees Atrial fibrillation with rapid ventricular response Possible Anterior infarct , age undetermined Abnormal ECG When compared with ECG of 18-AUG-2018 20:54, Atrial fibrillation has replaced Sinus rhythm Vent. rate has increased BY44 BPM Confirmed by Jameel Sarmiento ([id number]) on 09/07/2018 9:55:05 PM Procedure Note Interface, External Ris In - 09/07/2018 9:55 PM CDT Ventricular Rate 113 BPM Atrial Rate 234 BPM QRS Duration 98 ms Q-T Interval 322 ms QTC Calculation(Bazett) 441 ms R [place] -23 degrees T [place] 118 degrees Atrial fibrillation with rapid ventricular response Possible Anterior infarct , age undetermined Abnormal ECG When compared with ECG of 18-AUG-2018 20:54, Atrial fibrillation has replaced Sinus rhythm Vent. rate has increased BY 44 BPM Confirmed by Jameel Sarmiento ([id number]) on 09/07/2018 9:55:05 PM Performing Organization Address [facility] Phone Number [facility] * Magnesium (08/21/2018 8:27 PM CDT) Magnesium 2.3 1.5 - 3.0 mg/dL [facility] Specimen Blood Performing Organization Address City/[facility] Phone Number [facility] [place] [address] [facility] [place] [address] * Blood gas, arterial (08/21/2018 4:39 PM CDT) pH, Arterial 7.35 7.35 - 7.45 [facility] pCO2, Arterial 51 (H) 35 - 45 mmHg [facility] pO2, Arterial 82 80 - 90 mmHg [facility] O2 Sat, Arterial 95.9 (L) 96.0 - 97.0 % [facility] HCO3, Arterial 28 21 - 29 mmol/L [facility] Base Excess, Arterial 1.3 -2.0 - 3.0 mmol/L [facility] Patient Temperature 37.1 C [facility] Specimen Blood, Arterial Performing Organization Address City/State/Zipcode Phone Number [facility] [place] [address] [facility] [place] [address] * ECHOCARDIOGRAM REPORT - SCAN (08/20/2018 9:24 PM CDT) Narrative Performed At * 2D Echo W/Doppler(CW/PW/Color) (08/19/2018 4:16 PM CDT) Ejection Fraction Est EF is 55-60% [facility] Specimen Narrative Performed At Transthoracic Echocardiography Report (TTE) [facility] Demographics [facility] Patient NameJUSTIN BROTHERS Date of Study08/19/2018 Female Visit [id number] Unknown Room [id number] Number Date of 1930Referring Physician Age 88 year(s)SonographNeville Nunn, ALICE Interpreting Jameel Sarmiento PhysicianMD Alecia Pop MD Procedure Type of Study TTE procedure:2DECHO W DOPPLER(CW/PW/COLOR) (Routine) Indications:Shortness of breath. Contrast Medium: Definity. Amount - 2 ml Height: 64 inches Weight: 93.44 kg (206 lbs) BSA: 1.98 m^2 BMI: 35.36 kg/m^2 HR: 75 bpm BP: 132/92 mmHg Summary TDS with PEV contrast used lvef appears normal. valves not well seen, but there is unlikely to be significant or MR by doppler/color Signature Findings Technical Quality: Limited visualization due to body habitus. Left Ventricle Normal left ventricular chamber size. Normal wall thickness. Normal overall left ventricular systolic function. No apparent segmental wall motion abnormalities. Estimated LVEF is 55-60%. Left AtriumNormal size left atrium. Right VentricleNormal right ventricle structure and function. Right Atrium Normal right atrium. Atrial SeptumThe interatrial septum is not well visualized. Aortic Valve Normal AoV structure. There is no aortic stenosis. There is no aortic regurgitation. Mitral Valve MV is not well; function appears normal by Doppler visualized. Tricuspid ValveThe tricuspid valve is not well visualized. No evidence of tricuspid regurgitation. Pulmonic Valve Normal PV structure. A trace of pulmonary regurgitation. AortaAortic root size (SInus of Valsalva diameter) is normal . PericardiumNo evidence of pericardial effusion. IVC/SVC/PA/PV/PleuralThe inferior vena cava is not visualized. Chambers/Structures Left Atrium LA Dimension: 3.6 cm Left Ventricle LVIDd: 4.8 cmLVEDV:111 ml LVIDs: 2.9 cmLVESV:24.4 ml LV Septum Diastolic: 0.9 cmLVEF 2D Cube: 78 % LV PW Diastolic: 0.9 cm LV FS: 39.6 % LVOT Diameter: 1.9 cm LVEF: 78 % Right Ventricle RV Diast Dim.: 2.3 cm Aorta Ao Root S of Lucia.: 3 cm Ascending Aorta: 2.8 cm Doppler/Quantitative Measurements Mitral Valve MV Peak E-Wave: 1.02 m/sMV Peak A-Wave: 0.99 m/s P1/2t: 57 msecE/A Ratio: 1.03 Peak Gradient: 4.16 mmHg Deceleration Time: 194 msec MV Area (PHT): 3.86 cm^2 MV Dmitriy. Peak: Aortic Valve Peak Velocity: 1.27 m/s Mean Velocity: 0.86 m/s Peak Gradient: 6.45 mmHgMean Gradient: 3 mmHg AV Area (continuity): 2.64 cm^2 AV VTI: 26.7 cm Cusp Separation: 1.9 cm AV DVI: 0.93 LVOT Peak Velocity: 1 m/sPeak Gradient: 4 mmHg Mean Velocity: 0.7 m/sMean Gradient: 2 mmHg LVOT Diameter: 1.9 cm LVOT VTI: 24.9 cm LVOT Area: 2.84 cm^2LVOT SV:70.56 ml LVOT CO: 5.29 l/min LVOT CI: 2.67 l/min/m^2 Pulmonic Valve Peak Velocity: 1.18 m/s Peak Gradient: 5.57 mmHg MA ED Velocity: 1.16 m/s Procedure Note Interface, External Ris In - 08/20/2018 10:21 AM CDT Transthoracic Echocardiography Report (TTE) Demographics Patient Name JUSTIN BROTHERS Date of Study 08/19/2018 Gender Female Visit Number [id number] Race Unknown Room Number 3N08 Number Date of 1930 Referring Physician Age 88 year(s) Director Nicu Rylie Nunn, ALICE Interpreting Jameel Sarmiento, Physician MD Alecia Pop MD Procedure Type of Study TTE procedure:2DECHO W DOPPLER(CW/PW/COLOR) (Routine) Indications:Shortness of breath. Contrast Medium: Definity. Amount - 2 ml Height: 64 inches Weight: 93.44 kg (206 lbs) BSA: 1.98 m^2 BMI: 35.36 kg/m^2 HR: 75 bpm BP: 132/92 mmHg Summary TDS with PEV contrast used lvef appears normal. valves not well seen, but there is unlikely to be significant or MR by doppler/color Signature Findings Technical Quality: Limited visualization due to body habitus. Left Ventricle Normal left ventricular chamber size. Normal wall thickness. Normal overall left ventricular systolic function. No apparent segmental wall motion abnormalities. Estimated LVEF is 55-60%. Left Atrium Normal size left atrium. Right Ventricle Normal right ventricle structure and function. Right Atrium Normal right atrium. Atrial Septum The interatrial septum is not well visualized. Aortic Valve Normal AoV structure. There is no aortic stenosis. There is no aortic regurgitation. Mitral Valve MV is not well; function appears normal by Doppler visualized. Tricuspid Valve The tricuspid valve is not well visualized. No evidence of tricuspid regurgitation. Pulmonic Valve Normal PV structure. A trace of pulmonary regurgitation. Aorta Aortic root size (SInus of Valsalva diameter) is normal . Pericardium No evidence of pericardial effusion. IVC/SVC/PA/PV/Pleural The inferior vena cava is not visualized. Chambers/Structures Left Atrium LA Dimension: 3.6 cm Left Ventricle LVIDd: 4.8 cm LVEDV:111 ml LVIDs: 2.9 cm LVESV:24.4 ml LV Septum Diastolic: 0.9 cm LVEF 2D Cube: 78 % LV PW Diastolic: 0.9 cm LV FS: 39.6 % LVOT Diameter: 1.9 cm LVEF: 78 % Right Ventricle RV Diast Dim.: 2.3 cm Aorta Ao Root S of Lucia.: 3 cm Ascending Aorta: 2.8 cm Doppler/Quantitative Measurements Mitral Valve MV Peak E-Wave: 1.02 m/s MV Peak A-Wave: 0.99 m/s P1/2t: 57 msec E/A Ratio: 1.03 Peak Gradient: 4.16 mmHg Deceleration Time: 194 msec MV Area (PHT): 3.86 cm^2 MV Dmitriy. Peak: Aortic Valve Peak Velocity: 1.27 m/s Mean Velocity: 0.86 m/s Peak Gradient: 6.45 mmHg Mean Gradient: 3 mmHg AV Area (continuity): 2.64 cm^2 AV VTI: 26.7 cm Cusp Separation: 1.9 cm AV DVI: 0.93 LVOT Peak Velocity: 1 m/s Peak Gradient: 4 mmHg Mean Velocity: 0.7 m/s Mean Gradient: 2 mmHg LVOT Diameter: 1.9 cm LVOT VTI: 24.9 cm LVOT Area: 2.84 cm^2 LVOT SV:70.56 ml LVOT CO: 5.29 l/min LVOT CI: 2.67 l/min/m^2 Pulmonic Valve Peak Velocity: 1.18 m/s Peak Gradient: 5.57 mmHg MA ED Velocity: 1.16 m/s Performing Organization Address City/State/Zipcode Phone Number [facility] * CT chest without IV contrast (08/19/2018 9:50 AM CDT) Specimen Narrative Performed At FINAL REPORT [employer] CT of the Chest dated 08/19/2018 COMPARISON: March 06, 2016 CLINICAL INFORMATION: Cough, persistent, xray nondiagnostic Comment:Axial images of the chest were obtained from thoracic inlet to the upper abdomen without intravenous contrast. This exam was performed according to our departmental dose-optimization program, which includes automated exposure control, adjustment of the mA and/or kV according to patient size and/or use of interactive reconstruction technique. Heart is enlarged. Atherosclerotic calcification is seen in the thoracic aorta and coronary arteries. Great vessels are unremarkable. No adenopathy in the mediastinum or perihilar region. Trachea and mainstem bronchi are patent. There is interval increase in number of pulmonary nodules. The largest nodule measures approximately 5 mm in diameter in the right upper lobe. A focal airspace disease is seen in the right lower lobe in the right lower lobe with air bronchograms suggestive of pneumonia. Scarring versus subsegmental atelectasis is seen in the right mid lobe, lingula, and left lung base. No pleural effusion or pleural based mass is seen. Visualized upper abdomen demonstrates a 2.1 x 2.5 cm cyst is seen in the midpole right kidney. Impression: 1. Right lower lobe pneumonia. 2. Nonspecific pulmonary nodules. Recommend follow-up with repeat CT of the chest in 12 months. 3. Cardiomegaly. Signed: Abdullahi Salas MD Report Verified Date/Time:08/19/2018 10:24:51 Reading Location: [facility] B1 C013Y CT Body Reading Room Procedure Note Interface, External Ris In - 08/19/2018 10:27 AM CDT FINAL REPORT CT of the Chest dated 08/19/2018 COMPARISON: March 06, 2016 CLINICAL INFORMATION: Cough, persistent, xray nondiagnostic Comment: Axial images of the chest were obtained from thoracic inlet to the upper abdomen without intravenous contrast. This exam was performed according to our departmental dose-optimization program, which includes automated exposure control, adjustment of the mA and/or kV according to patient size and/or use of interactive reconstruction technique. Heart is enlarged. Atherosclerotic calcification is seen in the thoracic aorta and coronary arteries. Great vessels are unremarkable. No adenopathy in the mediastinum or perihilar region. Trachea and mainstem bronchi are patent. There is interval increase in number of pulmonary nodules. The largest nodule measures approximately 5 mm in diameter in the right upper lobe. A focal airspace disease is seen in the right lower lobe in the right lower lobe with air bronchograms suggestive of pneumonia. Scarring versus subsegmental atelectasis is seen in the right mid lobe, lingula, and left lung base. No pleural effusion or pleural based mass is seen. Visualized upper abdomen demonstrates a 2.1 x 2.5 cm cyst is seen in the midpole right kidney. Impression: 1. Right lower lobe pneumonia. 2. Nonspecific pulmonary nodules. Recommend follow-up with repeat CT of the chest in 12 months. 3. Cardiomegaly. Signed: Abdullahi Salas MD Report Verified Date/Time: 08/19/2018 10:24:51 Reading Location: [facility] B1 C013Y CT Body Reading Room Performing Organization Address City/State/Zipcode Phone Number RIS * Troponin I (08/19/2018 2:26 AM CDT) Only the most recent of 3 results within the time period is included. Troponin I 0.01 0.00 - 0.03 ng/mL [facility] Specimen Blood Narrative Performed At Troponin I (TnI) levels must be interpreted in the context of the presenting [facility] symptoms and the clinical findings. Elevated TnI levels indicate myocardial damage, but are not specific for ischemic heart disease. Elevated TnI levels are seen in patients with other cardiac conditions (including myocarditis and congestive heart failure), and slight TnI elevations occur in patients with other conditions, including sepsis, renal failure, acidosis, acute neurological disease, and persistent tachyarrhythmia. Performing Organization Address City/State/Zipcode Phone Number [facility] [address] [place] [address] [facility] [place] [address] * Lactic acid, venous (08/18/2018 8:46 PM CDT) Lactate, Venous 0.6 0.5 - 2.2 mmol/L [facility] Specimen Blood Performing Organization Address City/[facility] Phone Number [facility] [place] [address] [facility] [place] [address] * Blood Culture - Routine (Left Venipuncture) (08/18/2018 8:46 PM CDT) Only the most recent of 2 results within the time period is included. Result No growth in 5 days [facility] Specimen Blood Performing Organization Address City/[facility]/Zipcode Phone Number [address] [address] MEDICAL CENTER * Respiratory Panel [facility] (08/18/2018 8:33 PM CDT) Human Metapneumovirus Not detected Not detected, [facility] Rhinovirus Not detected Not detected, [facility] Influenza A Not detected Not detected, [facility] INFLUENZA A (NO SUBTYPE) Not detected, [facility] Influenza A subtype H1 Not detected, [facility] Influenza A Subtype H3 Not detected, [facility] Influenza A Subtype Not detected, [facility] H1-2009 [facility] Influenza B Not detected Not detected, [facility] Respiratory Syncytial Not detected Not detected, [facility] Virus [facility] Parainfluenza Virus 1 Not detected Not detected, [facility] Parainfluenza Virus 2 Not detected Not detected, [facility] Parainfluenza virus 3 Not detected Not detected, [facility] Parainfluenza Virus 4 Not detected Not detected, [facility] Adenovirus Not detected Not detected, [facility] Coronavirus 229E Not detected Not detected, [facility] Coronavirus HKU1 Not detected Not detected, [facility] Coronavirus NL63 Not detected Not detected, [facility] Coronavirus OC43 Not detected Not detected, [facility] Bordetella Pertussis Not detected Not detected, [facility] Chlamydophila Pneumoniae Not detected Not detected, [facility] Mycoplasma Pneumoniae Not detected Not detected, [facility] Specimen Nasopharyngeal Narrative Performed At Other viruses and bacteria not targeted by this PCR panel cannot be excluded; [facility] therefore clinical correlation and follow up of serology, culture results, and [facility] other molecular studies is required. The results are not intended to be used as the sole means for clinical diagnosis or patient management decisions. This sample was tested at the [facility] Molecular Diagnostics Laboratory using the BioSwarm64 FilmArray Respiratory Panel. It is FDA cleared and has been verified and approved by the [facility] for clinical use on nasal swab specimens. It is not FDA-cleared for use on bronchial wash/lavage samples. However, for this sample type, validation was performed and test characteristics were determined and approved, by [facility] Molecular Diagnostics laboratory for clinical use under the Clinical Laboratory Improvement Amendments (CLIA) of 1988 requirements. Therefore, FDA clearance is not required.This laboratory is CLIA-certified and [employer] (CAP)-accredited to perform high complexity testing. Performing Organization Address City/State/Zipcode Phone Number [facility] [address], [place] [id number] [facility] * Influenza antigen A & B (Rapid) (08/18/2018 8:33 PM CDT) Rapid Influenza A Antigen Negative Negative, Inconclusive [facility] Rapid influenza B Antigen Negative Negative, Inconclusive [facility] Specimen Nasopharyngeal Performing Organization Address City/[facility] Phone Number [facility] [place] [address] [facility] [place] [address] * TSH/Free T4 If Indicated (08/18/2018 8:32 PM CDT) TSH 4.82 0.35 - 5.50 uIU/mL [facility] Specimen Blood Performing Organization Address [facility] Phone Number [facility] [place] [place] [address] [facility] [place] [address] * XR chest 2 views (08/18/2018 7:59 PM CDT) Specimen Narrative Performed At FINAL REPORT [facility] EXAMINATION: 2 view chest CLINICAL INDICATION: Cough IMPRESSION: Compared with 03/11/2016. A midline sternotomy is again noted. Overall aeration of the lungs has improved in the interval. However, opacities are noted in both lungs with a predominantly basilar distribution which are similar but possibly increased from previous. Although a component may reflect atelectasis or scarring, pulmonary edema or a pneumonia should also be considered. An underlying mass lesion cannot be excluded on today's limited study. No definite evidence of a large pleural effusion or pneumothorax. Several of the ribs have irregular margins suggesting possible sequela from fracture, chronicity indeterminate. If there is persistent clinical concern, consider chest CT. Dedicated rib series could also be performed if there is concern for acute or subacute rib fracture. Signed: Sara Grace MD Report Verified Date/Time:08/18/2018 20:22:29 Reading Location: [address] Reading Room Procedure Note Interface, External Ris In - 08/18/2018 8:24 PM CDT FINAL REPORT EXAMINATION: 2 view chest CLINICAL INDICATION: Cough IMPRESSION: Compared with 03/11/2016. A midline sternotomy is again noted. Overall aeration of the lungs has improved in the interval. However, opacities are noted in both lungs with a predominantly basilar distribution which are similar but possibly increased from previous. Although a component may reflect atelectasis or scarring, pulmonary edema or a pneumonia should also be considered. An underlying mass lesion cannot be excluded on today's limited study. No definite evidence of a large pleural effusion or pneumothorax. Several of the ribs have irregular margins suggesting possible sequela from fracture, chronicity indeterminate. If there is persistent clinical concern, consider chest CT. Dedicated rib series could also be performed if there is concern for acute or subacute rib fracture. Signed: Sara rGace MD Report Verified Date/Time: 08/18/2018 20:22:29 Reading Location: [address] Reading Room Performing Organization Address City/State/Zipcode Phone Number [facility] * ECG/EKG Interpretation (08/18/2018 6:52 PM CDT) Narrative Performed At Keli Foster MD 08/18/20189:29 PM ECG/EKG Interpretation Date/Time: 08/18/2018 9:28 PM Performed by: Keli Foster MD Authorized by: Keli Fosetr MD The ECG was interpreted by ED physician. This ECG was compared with previous ECG(s).Comments: Read by me: HR 69, nml sinus rhythm, nml intervals, no ST changes, no T wave changes, no right heart strain, as compared to previous EKG after 12/13/2017 Insurance Payer Benefit Subscriber ID Type Phone Address Plan / Group [employer] xxxxxxxxx Maps HMO ALL Contracted MEDICAID - MEDICAID [facility]GD [facility] xxxxxxxxx Medicaid CARE COMM STAR Contracted PLAN Advance Directives For more information, please contact: [facility] [address] [place] [address] Date Inactivated Comments Code Status Date Activated 08/26/2018 11:34 PM DNR 08/19/2018 4:07 AM 03/12/2016 8:05 PM Partial Code 03/02/2016 6:59 PM This code status was determined by: Child Drug Protocol After Arrest Occurs? Yes Mechanical Ventilation with Intubation? No Bag/Mask? No Internal/External Pacemaker? No Transfer to Critical Care? No Chest Compressions? No Defibrillation/Cardioversion? No 03/02/2016 6:59 PM Full Code 03/02/2016 3:14 PM This code status was determined by: Patient 02/29/2016 5:16 PM Full Code 02/27/2016 11:30 AM This code status was determined by: Patient 11/04/2015 5:29 PM Full Code 11/01/2015 4:17 PM This code status was determined by: Patient
--- OUTSIDE RECORDS SUMMARY | 2018-12-14 05:50 | XMS REPORT | Continuity of Care Document ---
Author Author [facility] Organization [facility] Address Unknown Phone Unavailable Care Team Providers Care Leg Breaker Name Role Phone [employer] Unavailable Unavailable Problems Problem Status Onset Date Classification Date Reported Comments Source Generalized abdominal pain 02/20/2018 09/04/2018 [facility] R10.84 - GENERALIZED ABDOMINAL PAIN Active 02/10/2018 [facility] G47.33 Active 12/24/2015 [facility] SOB Active 12/24/2015 [facility] ANAL CA 154.2 Active 02/03/2014 [facility] Diaphragmatic hernia without obstruction or gangrene 09/04/2018 [facility] Gastro-esophageal reflux disease without esophagitis 09/04/2018 [facility] Coronary arteriosclerosis (disorder) Active Problem 09/04/2018 [facility] Diabetes mellitus (disorder) Active Problem 09/04/2018 [facility] Arthroplasty of knee (procedure) Active Problem 09/04/2018 [facility] Malignant neoplasm of skin (disorder) Active Problem 09/04/2018 [facility] Coronary atherosclerosis of wr[place] vessel Active Problem 04/18/2016 [facility] Shortness of breath Active Problem 04/18/2016 [facility] Cardiomyopathy NOS Active Problem 04/18/2016 [facility] Palpitations Active Problem 04/18/2016 [facility] Essential (primary) hypertension Active Problem 04/18/2016 [facility] Shortness of breath Active Problem 04/18/2016 [facility] Rectal cancer Active Problem 04/18/2016 [facility] Arteriosclerotic cardiovascular disease Active Problem 04/18/2016 [facility] Edema Active Problem 04/18/2016 [facility] CHR AIRWAY OBSTRUCT NEC Active Problem 04/18/2016 [facility] Cardiac dysrhythmia, unspecified Active Problem 04/18/2016 [facility] Diabetes mellitus type II Active Problem 04/18/2016 [facility] Benign hypertension Active Problem 04/18/2016 [facility] Hyperlipidemia Active Problem 04/18/2016 [facility] Hypertension Active Problem 04/18/2016 [facility] Type 2 diabetes mellitus without complications Active Problem 04/18/2016 [facility] Heart failure, unspecified Active Problem 04/18/2016 [facility] Claudication of lower extremity Active Problem 04/18/2016 [facility] Cardiomyopathy Active Problem 04/18/2016 [facility] SHORTNESS OF BREATH Active [facility] Medications Medication Details Route Status Patient Instructions Ordering Provider Order Date Source cilostazol 1 tab(s) orally Active 50 mg orally 2 times a day [facility] 01/08/2016 [facility] Klor-Con M10 1 tab(s) orally Active 10 mEq orally QOD [facility] 12/04/2015 [facility] furosemide 1 tab(s) orally Active 40 mg orally QOD [facility] 12/04/2015 [facility] Amlodipine Besylate 1 tab(s) orally Active 10 mg orally once a day [facility] 11/15/2015 [facility] Diovan 1 tab(s) orally Active 160 mg orally once a day [facility] 03/27/2014 [facility] lovastatin 1 tab(s) orally Active 20 mg orally once a day [facility] 08/10/2013 [facility] fluticasone nasal 1 spray(s) intranasally Active 50 mcg/inh intranasally once a day [facility] 08/10/2013 [facility] furosemide 1 tab(s) orally Active 40 mg orally once a day [facility] 08/03/2013 [facility] clopidogrel 1 tab(s) orally Active 75 mg orally once a day [facility] 05/11/2012 [facility] Klor-Con 8 1 tab(s) orally Active [address] [facility] 05/11/2012 [facility] Metoprolol Tartrate 1 tab(s) orally Active 25 mg orally [address] [facility] 05/11/2012 [facility] Humalin as directed NA Active 70/30 [facility] hydralazine 1 tab(s) orally Active 25 mg orally PRN for systolic >160 [facility] lorazepam 1 tab(s) orally Active 0.5 mg orally 3 times a day [facility] Levemir 20 units subcutaneously Active 100 units/mL subcutaneously qAM [facility] temazepam 1 cap(s) orally Active 30 mg orally once a day (at bedtime) [facility] levothyroxine 1 tab(s) orally Active 100 mcg (0.1 mg) orally once a day [facility] NovoLog FlexPen 6units subcutaneously Active 100 units/mL subcutaneously bid [facility] gabapentin 1 cap(s) orally Active 300 mg orally tid [facility] Centrum Silver Women's 1 tab(s) orally Active Therapeutic Multiple Vitamins with Minerals orally once a day [facility] Vitamin D 1 cap(s) orally Active 1000 mg orally once a day [facility] Vitamin B6 1 tab(s) orally Active 100 mg orally once a day [facility] ipratropium 2.5 mL by nebulizer Active 500 mcg/2.5 mL by nebulizer 4 times a day [facility] Synthroid 1 tab(s) orally Active 125 mcg orally once a day [facility] Advair as directed NA Active 250/50 Diskus [facility] Vitamin C 1 tab(s) orally Active 1000 mg orally once a day [facility] Vitamin D3 1 tab(s) orally Active 1000 intl units orally once a day [facility] aspirin 1 tab(s) orally Active 81 mg orally once a day [facility] biotin 1 tab(s) orally Active 1000 mcg orally once a day [facility] acebutolol 1 cap(s) orally Active 200 mg orally bid [facility] Oxygen Unknown NA Active qhs [facility] Advair Diskus 1 puff(s) inhaled Active 250 mcg-50 mcg inhaled 2 times a day [facility] Allergies, Adverse Reactions, Alerts Substance Category Reaction Severity Reaction type Status Date Reported Comments Source Aspirin Adverse Reaction Info Not Available Adverse Reaction Active 01/22/2016 [facility] adhesive tape Assertion Drug allergy Active [facility] codeine Assertion Drug allergy Active [facility] aspirin Assertion Drug allergy Active [facility] Motrin Assertion Drug allergy Active [facility] Immunizations Immunization Date Given Site Status Last Updated Comments Source pneumococcal 23-valent vaccine 06/09/2010 Right deltoid completed [facility] influenza virus vaccine, inactivated 01/07/2010 completed [facility] Results No Data Provided for This Section Pathology Reports No Data Provided for This Section Diagnostic Reports Report Value Date Source Upper GI series air contrast DX Double Contrast UGI with Oil Mixer Film Clinical History: - R10.84 Generalized abdominal pain. Fluoro time: 1:55 minutes DLP: 59 mGy-cm. Number of images : 57 Findings: Oil Mixer KUB demonstrates a normal bowel gas pattern. No abnormal calcific densities are identified. Degenerative changes of spine are seen. The swallowing mechanism is normal without aspiration. T The esophagus is normal. Small hiatal hernia is seen. Multiple episodes of mild gastroesophageal reflux up to lower esophagus are seen. The stomach is normal. The visualized small bowel is normal. Impression: Small hiatal hernia. Mild gastroesophageal reflux. 02/15/2018 [facility] Consultation Notes No Data Provided for This Section Discharge Summaries No Data Provided for This Section History and Physicals No Data Provided for This Section Vital Signs Vital Sign Value Date Comments Source Diastolic (mm Hg) 68 01/22/2016 [facility] Systolic (mm Hg) 160 01/22/2016 [facility] Weight 199.0 01/22/2016 [facility] Height 53 01/22/2016 [facility] Diastolic (mm Hg) 90 12/25/2015 [facility] Systolic (mm Hg) 154 12/25/2015 [facility] Weight 190 12/25/2015 [facility] Height 53 12/25/2015 [facility] Diastolic (mm Hg) 70 12/04/2015 [facility] Systolic (mm Hg) 140 12/04/2015 [facility] Weight 191 12/04/2015 [facility] Height 53 12/04/2015 [facility] Diastolic (mm Hg) 70 11/15/2015 [facility] Systolic (mm Hg) 160 11/15/2015 [facility] Weight 191 11/15/2015 [facility] Height 59 11/15/2015 [facility] Diastolic (mm Hg) 60 10/18/2015 [facility] Systolic (mm Hg) 140 10/18/2015 [facility] Weight 188 10/18/2015 [facility] Height 59 10/18/2015 [facility] Diastolic (mm Hg) 70 05/03/2015 [facility] Systolic (mm Hg) 150 05/03/2015 [facility] Weight 182.6 05/03/2015 [facility] Height 59 05/03/2015 [facility] Encounters Location Location Details Encounter Type Encounter Number Reason For Visit Attending Provider ADM Date DC Date Status Source [facility] Unknown [id number] 05/30/2013 05/30/2013 [facility] Unknown [id number] 05/30/2013 05/30/2013 [facility] [id number] 05/30/2013 05/30/2013 [facility] [id number] 05/30/2013 05/30/2013 [facility] [id number] 05/30/2013 05/30/2013 [facility] Unknown [id number] 05/30/2013 05/30/2013 [facility] Unknown [id number] 05/30/2013 05/30/2013 [facility] Unknown [id number] 05/30/2013 05/30/2013 [facility] Unknown [id number] 05/30/2013 05/30/2013 [facility] Unknown [id number] 05/30/2013 05/30/2013 [facility] [id number] 05/30/2013 05/30/2013 [facility] [id number] 05/30/2013 05/30/2013 [facility] [id number] 05/30/2013 05/30/2013 [facility] [id number] 05/30/2013 05/30/2013 [facility] [id number] 05/30/2013 05/30/2013 [facility] [id number] 05/30/2013 05/30/2013 [facility] [id number] 05/30/2013 05/30/2013 [facility] [id number] 05/30/2013 05/30/2013 [facility] [id number] 05/30/2013 05/30/2013 [facility] Unknown [id number] 05/30/2013 05/30/2013 [facility] [id number] 05/30/2013 05/30/2013 [facility] Unknown [id number] 05/30/2013 05/30/2013 [facility] [id number] 05/30/2013 05/30/2013 [facility] Unknown [id number] 05/30/2013 05/30/2013 [facility] [id number] 05/30/2013 05/30/2013 [facility] Unknown [id number] 05/30/2013 05/30/2013 [facility] Unknown [id number] 05/30/2013 05/30/2013 [facility] Unknown [id number] 05/30/2013 05/30/2013 [facility] Unknown [id number] 08/30/2013 08/30/2013 [facility] Unknown [id number] 08/30/2013 08/30/2013 [facility] Unknown [id number] 08/30/2013 08/30/2013 [facility] Unknown [id number] 08/30/2013 08/30/2013 [facility] Unknown [id number] 08/30/2013 08/30/2013 [facility] Unknown [id number] 08/30/2013 08/30/2013 [facility] Unknown [id number] 08/30/2013 08/30/2013 [facility] Unknown [id number] 08/30/2013 08/30/2013 [facility] Unknown [id number] 08/30/2013 08/30/2013 [facility] Unknown [id number] 08/30/2013 08/30/2013 [facility] Unknown [id number] 08/30/2013 08/30/2013 [facility] Unknown [id number] 08/30/2013 08/30/2013 [facility] Unknown [id number] 08/30/2013 08/30/2013 [facility] [id number] 08/30/2013 08/30/2013 [facility] Unknown [id number] 08/30/2013 08/30/2013 [facility] [id number] 08/30/2013 08/30/2013 [facility] Unknown [id number] 08/30/2013 08/30/2013 [facility] Unknown [id number] 08/30/2013 08/30/2013 [facility] Unknown [id number] 08/30/2013 08/30/2013 [facility] Unknown [id number] 08/30/2013 08/30/2013 [facility] Unknown [id number] 08/30/2013 08/30/2013 [facility] Unknown [id number] 08/30/2013 08/30/2013 [facility] Unknown [id number] 08/30/2013 08/30/2013 [facility] Unknown [id number] 08/30/2013 08/30/2013 [facility] Unknown [id number] 08/30/2013 08/30/2013 [facility] Unknown [id number] 08/30/2013 08/30/2013 [facility] Unknown [id number] 08/30/2013 08/30/2013 [facility] Unknown [id number] 08/30/2013 08/30/2013 [facility] Unknown [id number] 11/02/2013 11/02/2013 [facility] Unknown [id number] 11/02/2013 11/02/2013 [facility] Unknown [id number] 11/02/2013 11/02/2013 [facility] Unknown [id number] 11/02/2013 11/02/2013 [facility] Unknown [id number] 11/02/2013 11/02/2013 [facility] Unknown [id number] 11/02/2013 11/02/2013 [facility] Unknown [id number] 11/02/2013 11/02/2013 [facility] Unknown [id number] 11/02/2013 11/02/2013 [facility] Unknown [id number] 11/02/2013 11/02/2013 [facility] Unknown [id number] 11/02/2013 11/02/2013 [facility] Unknown [id number] 11/02/2013 11/02/2013 [facility] Unknown [id number] 11/02/2013 11/02/2013 [facility] Unknown [id number] 11/02/2013 11/02/2013 [facility] Unknown [id number] 11/02/2013 11/02/2013 [facility] Unknown [id number] 11/02/2013 11/02/2013 [facility] Unknown [id number] 11/02/2013 11/02/2013 [facility] Unknown [id number] 11/02/2013 11/02/2013 [facility] Unknown [id number] 11/02/2013 11/02/2013 [facility] Unknown [id number] 11/02/2013 11/02/2013 [facility] Unknown [id number] 11/02/2013 11/02/2013 [facility] Unknown [id number] 11/02/2013 11/02/2013 [facility] Unknown [id number] 11/02/2013 11/02/2013 [facility] Unknown [id number] 11/02/2013 11/02/2013 [facility] Unknown [id number] 11/02/2013 11/02/2013 [facility] Unknown [id number] 11/02/2013 11/02/2013 [facility] Unknown [id number] 11/02/2013 11/02/2013 [facility] Unknown [id number] 11/02/2013 11/02/2013 [facility] [id number] 11/02/2013 11/02/2013 [facility] [id number] 11/14/2013 11/14/2013 [facility] [id number] 11/14/2013 11/14/2013 [facility] [id number] 11/14/2013 11/14/2013 [facility] [id number] 11/14/2013 11/14/2013 [facility] [id number] 11/14/2013 11/14/2013 [facility] [id number] 11/14/2013 11/14/2013 [facility] [id number] 11/14/2013 11/14/2013 [facility] [id number] 11/14/2013 11/14/2013 [facility] [id number] 11/14/2013 11/14/2013 [facility] [id number] 11/14/2013 11/14/2013 [facility] [id number] 11/14/2013 11/14/2013 [facility] [id number] 11/14/2013 11/14/2013 [facility] [id number] 11/14/2013 11/14/2013 [facility] [id number] 11/14/2013 11/14/2013 [facility] [id number] 11/14/2013 11/14/2013 [facility] [id number] 11/14/2013 11/14/2013 [facility] [id number] 11/14/2013 11/14/2013 [facility] [id number] 11/14/2013 11/14/2013 [facility] [id number] 11/14/2013 11/14/2013 [facility] [id number] 11/14/2013 11/14/2013 [facility] [id number] 11/14/2013 11/14/2013 [facility] [id number] 11/14/2013 11/14/2013 [facility] [id number] 11/14/2013 11/14/2013 [facility] [id number] 11/14/2013 11/14/2013 [facility] [id number] 11/14/2013 11/14/2013 [facility] [id number] 11/14/2013 11/14/2013 [facility] [id number] 11/14/2013 11/14/2013 [facility] [id number] 11/14/2013 11/14/2013 [facility] [id number] 11/29/2013 11/29/2013 [facility] Unknown [id number] 11/29/2013 11/29/2013 [facility] Unknown [id number] 11/29/2013 11/29/2013 [facility] Unknown [id number] 11/29/2013 11/29/2013 [facility] Unknown [id number] 11/29/2013 11/29/2013 [facility] Unknown [id number] 11/29/2013 11/29/2013 [facility] Unknown [id number] 11/29/2013 11/29/2013 [facility] Unknown [id number] 11/29/2013 11/29/2013 [facility] Unknown [id number] 11/29/2013 11/29/2013 [facility] Unknown [id number] 11/29/2013 11/29/2013 [facility] Unknown [id number] 11/29/2013 11/29/2013 [facility] Unknown [id number] 11/29/2013 11/29/2013 [facility] Unknown [id number] 11/29/2013 11/29/2013 [facility] Unknown [id number] 11/29/2013 11/29/2013 [facility] Unknown [id number] 11/29/2013 11/29/2013 [facility] Unknown [id number] 11/29/2013 11/29/2013 [facility] Unknown [id number] 11/29/2013 11/29/2013 [facility] Unknown [id number] 11/29/2013 11/29/2013 [facility] Unknown [id number] 11/29/2013 11/29/2013 [facility] Unknown [id number] 11/29/2013 11/29/2013 [facility] Unknown [id number] 11/29/2013 11/29/2013 [facility] Unknown [id number] 11/29/2013 11/29/2013 [facility] Unknown [id number] 11/29/2013 11/29/2013 [facility] Unknown [id number] 11/29/2013 11/29/2013 [facility] Unknown [id number] 11/29/2013 11/29/2013 [facility] Unknown [id number] 11/29/2013 11/29/2013 [facility] Unknown [id number] 11/29/2013 11/29/2013 [facility] Unknown [id number] 11/29/2013 11/29/2013 [facility] [id number] 12/07/2013 12/07/2013 [facility] [id number] 12/07/2013 12/07/2013 [facility] [id number] 12/07/2013 12/07/2013 [facility] [id number] 12/07/2013 12/07/2013 [facility] [id number] 12/07/2013 12/07/2013 [facility] [id number] 12/07/2013 12/07/2013 [facility] [id number] 12/07/2013 12/07/2013 [facility] [id number] 12/07/2013 12/07/2013 [facility] [id number] 12/07/2013 12/07/2013 [facility] [id number] 12/07/2013 12/07/2013 [facility] [id number] 12/07/2013 12/07/2013 [facility] [id number] 12/07/2013 12/07/2013 [facility] [id number] 12/07/2013 12/07/2013 [facility] [id number] 12/07/2013 12/07/2013 [facility] [id number] 12/07/2013 12/07/2013 [facility] [id number] 12/07/2013 12/07/2013 [facility] [id number] 12/07/2013 12/07/2013 [facility] [id number] 12/07/2013 12/07/2013 [facility] [id number] 12/07/2013 12/07/2013 [facility] [id number] 12/07/2013 12/07/2013 [facility] [id number] 12/07/2013 12/07/2013 [facility] [id number] 12/07/2013 12/07/2013 [facility] [id number] 12/07/2013 12/07/2013 [facility] [id number] 12/07/2013 12/07/2013 [facility] [id number] 12/07/2013 12/07/2013 [facility] [id number] 12/07/2013 12/07/2013 [facility] [id number] 12/07/2013 12/07/2013 [facility] [id number] 12/07/2013 12/07/2013 [facility] Outpatient Imaging [facility] [id number] [facility] 12/28/2013 12/29/2013 [facility] Unknown [id number] 01/12/2014 01/12/2014 [facility] [id number] 01/12/2014 01/12/2014 [facility] [id number] 01/12/2014 01/12/2014 [facility] Unknown [id number] 01/12/2014 01/12/2014 [facility] [id number] 01/12/2014 01/12/2014 [facility] Unknown [id number] 01/12/2014 01/12/2014 [facility] [id number] 01/12/2014 01/12/2014 [facility] [id number] 01/12/2014 01/12/2014 [facility] [id number] 01/12/2014 01/12/2014 [facility] [id number] 01/12/2014 01/12/2014 [facility] [id number] 01/12/2014 01/12/2014 [facility] Unknown [id number] 01/12/2014 01/12/2014 [facility] [id number] 01/12/2014 01/12/2014 [facility] [id number] 01/12/2014 01/12/2014 [facility] [id number] 01/12/2014 01/12/2014 [facility] [id number] 01/12/2014 01/12/2014 [facility] Unknown [id number] 01/12/2014 01/12/2014 [facility] [id number] 01/12/2014 01/12/2014 [facility] [id number] 01/12/2014 01/12/2014 [facility] Unknown [id number] 01/12/2014 01/12/2014 [facility] [id number] 01/12/2014 01/12/2014 [facility] Unknown [id number] 01/12/2014 01/12/2014 [facility] Unknown [id number] 01/12/2014 01/12/2014 [facility] Unknown [id number] 01/12/2014 01/12/2014 [facility] Unknown [id number] 01/12/2014 01/12/2014 [facility] Unknown [id number] 01/12/2014 01/12/2014 [facility] Unknown [id number] 01/12/2014 01/12/2014 [facility] [id number] 01/12/2014 01/12/2014 [facility] Unknown [id number] 02/02/2014 02/02/2014 [facility] [id number] 02/02/2014 02/02/2014 [facility] [id number] 02/02/2014 02/02/2014 [facility] [id number] 02/02/2014 02/02/2014 [facility] [id number] 02/02/2014 02/02/2014 [facility] [id number] 02/02/2014 02/02/2014 [facility] Unknown [id number] 02/02/2014 02/02/2014 [facility] [id number] 02/02/2014 02/02/2014 [facility] [id number] 02/02/2014 02/02/2014 [facility] Unknown [id number] 02/02/2014 02/02/2014 [facility] [id number] 02/02/2014 02/02/2014 [facility] Unknown [id number] 02/02/2014 02/02/2014 [facility] [id number] 02/02/2014 02/02/2014 [facility] [id number] 02/02/2014 02/02/2014 [facility] [id number] 02/02/2014 02/02/2014 [facility] [id number] 02/02/2014 02/02/2014 [facility] [id number] 02/02/2014 02/02/2014 [facility] [id number] 02/02/2014 02/02/2014 [facility] Unknown [id number] 02/02/2014 02/02/2014 [facility] [id number] 02/02/2014 02/02/2014 [facility] [id number] 02/02/2014 02/02/2014 [facility] [id number] 02/02/2014 02/02/2014 [facility] [id number] 02/02/2014 02/02/2014 [facility] [id number] 02/02/2014 02/02/2014 [facility] [id number] 02/02/2014 02/02/2014 [facility] Unknown [id number] 02/02/2014 02/02/2014 [facility] Unknown [id number] 02/02/2014 02/02/2014 [facility] Unknown [id number] 02/02/2014 02/02/2014 [facility] [id number] 03/14/2014 03/14/2014 [facility] [id number] 03/14/2014 03/14/2014 [facility] Unknown [id number] 03/14/2014 03/14/2014 [facility] Unknown [id number] 03/14/2014 03/14/2014 [facility] Unknown [id number] 03/14/2014 03/14/2014 [facility] Unknown [id number] 03/14/2014 03/14/2014 [facility] Unknown [id number] 03/14/2014 03/14/2014 [facility] Unknown [id number] 03/14/2014 03/14/2014 [facility] Unknown [id number] 03/14/2014 03/14/2014 [facility] Unknown [id number] 03/14/2014 03/14/2014 [facility] [id number] 03/14/2014 03/14/2014 [facility] [id number] 03/14/2014 03/14/2014 [facility] Unknown [id number] 03/14/2014 03/14/2014 [facility] Unknown [id number] 03/14/2014 03/14/2014 [facility] Unknown [id number] 03/14/2014 03/14/2014 [facility] Unknown [id number] 03/14/2014 03/14/2014 [facility] Unknown [id number] 03/14/2014 03/14/2014 [facility] Unknown [id number] 03/14/2014 03/14/2014 [facility] Unknown [id number] 03/14/2014 03/14/2014 [facility] Unknown [id number] 03/14/2014 03/14/2014 [facility] Unknown [id number] 03/14/2014 03/14/2014 [facility] Unknown [id number] 03/14/2014 03/14/2014 [facility] Unknown [id number] 03/14/2014 03/14/2014 [facility] Unknown [id number] 03/14/2014 03/14/2014 [facility] Unknown [id number] 03/14/2014 03/14/2014 [facility] Unknown [id number] 03/14/2014 03/14/2014 [facility] [id number] 03/14/2014 03/14/2014 [facility] Unknown [id number] 03/14/2014 03/14/2014 [facility] edema [id number] 03/27/2014 03/27/2014 [facility]- edema [id number] 03/27/2014 03/27/2014 [facility]- edema [id number] 03/27/2014 03/27/2014 [facility]- edema [id number] 03/27/2014 03/27/2014 [facility]- edema [id number] 03/27/2014 03/27/2014 [facility]- edema [id number] 03/27/2014 03/27/2014 [facility]- edema [id number] 03/27/2014 03/27/2014 [facility]- edema [id number] 03/27/2014 03/27/2014 [facility]- edema [id number] 03/27/2014 03/27/2014 [facility]- edema [id number] 03/27/2014 03/27/2014 [facility]- edema [id number] 03/27/2014 03/27/2014 [facility]- edema [id number] 03/27/2014 03/27/2014 [facility]- edema [id number] 03/27/2014 03/27/2014 [facility]- edema [id number] 03/27/2014 03/27/2014 [facility]- edema [id number] 03/27/2014 03/27/2014 [facility]- edema [id number] 03/27/2014 03/27/2014 [facility]- edema [id number] 03/27/2014 03/27/2014 [facility]- edema [id number] 03/27/2014 03/27/2014 [facility]- edema [id number] 03/27/2014 03/27/2014 [facility]- edema [id number] 03/27/2014 03/27/2014 [facility]- edema [id number] 03/27/2014 03/27/2014 [facility]- edema [id number] 03/27/2014 03/27/2014 [facility]- edema [id number] 03/27/2014 03/27/2014 [facility]- edema [id number] 03/27/2014 03/27/2014 [facility]- edema [id number] 03/27/2014 03/27/2014 [facility]- edema [id number] 03/27/2014 03/27/2014 [facility]- edema [id number] 03/27/2014 03/27/2014 [facility]- edema [id number] 03/27/2014 03/27/2014 [facility] Unknown [id number] 04/13/2014 04/13/2014 [facility] Unknown [id number] 04/13/2014 04/13/2014 [facility] Unknown [id number] 04/13/2014 04/13/2014 [facility] Unknown [id number] 04/13/2014 04/13/2014 [facility] Unknown [id number] 04/13/2014 04/13/2014 [facility] Unknown [id number] 04/13/2014 04/13/2014 [facility] Unknown [id number] 04/13/2014 04/13/2014 [facility] Unknown [id number] 04/13/2014 04/13/2014 [facility] Unknown [id number] 04/13/2014 04/13/2014 [facility] Unknown [id number] 04/13/2014 04/13/2014 [facility] Unknown [id number] 04/13/2014 04/13/2014 [facility] Unknown [id number] 04/13/2014 04/13/2014 [facility] Unknown [id number] 04/13/2014 04/13/2014 [facility] Unknown [id number] 04/13/2014 04/13/2014 [facility] Unknown [id number] 04/13/2014 04/13/2014 [facility] Unknown [id number] 04/13/2014 04/13/2014 [facility] Unknown [id number] 04/13/2014 04/13/2014 [facility] Unknown [id number] 04/13/2014 04/13/2014 [facility] Unknown [id number] 04/13/2014 04/13/2014 [facility] Unknown [id number] 04/13/2014 04/13/2014 [facility] Unknown [id number] 04/13/2014 04/13/2014 [facility] Unknown [id number] 04/13/2014 04/13/2014 [facility] Unknown [id number] 04/13/2014 04/13/2014 [facility] Unknown [id number] 04/13/2014 04/13/2014 [facility] Unknown [id number] 04/13/2014 04/13/2014 [facility] [id number] 04/13/2014 04/13/2014 [facility] Unknown [id number] 04/13/2014 04/13/2014 [facility] Unknown [id number] 04/13/2014 04/13/2014 [facility] [id number] 09/05/2014 09/05/2014 [facility] [id number] 09/05/2014 09/05/2014 [facility] [id number] 09/05/2014 09/05/2014 [facility] [id number] 09/05/2014 09/05/2014 [facility] [id number] 09/05/2014 09/05/2014 [facility] [id number] 09/05/2014 09/05/2014 [facility] [id number] 09/05/2014 09/05/2014 [facility] [id number] 09/05/2014 09/05/2014 [facility] [id number] 09/05/2014 09/05/2014 [facility] [id number] 09/05/2014 09/05/2014 [facility] [id number] 09/05/2014 09/05/2014 [facility] [id number] 09/05/2014 09/05/2014 [facility] [id number] 09/05/2014 09/05/2014 [facility] [id number] 09/05/2014 09/05/2014 [facility] [id number] 09/05/2014 09/05/2014 [facility] [id number] 09/05/2014 09/05/2014 [facility] [id number] 09/05/2014 09/05/2014 [facility] [id number] 09/05/2014 09/05/2014 [facility] [id number] 09/05/2014 09/05/2014 [facility] [id number] 09/05/2014 09/05/2014 [facility] [id number] 09/05/2014 09/05/2014 [facility] [id number] 09/05/2014 09/05/2014 [facility] [id number] 09/05/2014 09/05/2014 [facility] [id number] 09/05/2014 09/05/2014 [facility] [id number] 09/05/2014 09/05/2014 [facility] [id number] 09/05/2014 09/05/2014 [facility] [id number] 09/05/2014 09/05/2014 [facility] [id number] 09/05/2014 09/05/2014 [facility] Unknown [id number] 09/07/2014 09/07/2014 [facility] Unknown [id number] 09/07/2014 09/07/2014 [facility] Unknown [id number] 09/07/2014 09/07/2014 [facility] Unknown [id number] 09/07/2014 09/07/2014 [facility] Unknown [id number] 09/07/2014 09/07/2014 [facility] Unknown [id number] 09/07/2014 09/07/2014 [facility] Unknown [id number] 09/07/2014 09/07/2014 [facility] Unknown [id number] 09/07/2014 09/07/2014 [facility] Unknown [id number] 09/07/2014 09/07/2014 [facility] Unknown [id number] 09/07/2014 09/07/2014 [facility] Unknown [id number] 09/07/2014 09/07/2014 [facility] Unknown [id number] 09/07/2014 09/07/2014 [facility] Unknown [id number] 09/07/2014 09/07/2014 [facility] Unknown [id number] 09/07/2014 09/07/2014 [facility] Unknown [id number] 09/07/2014 09/07/2014 [facility] Unknown [id number] 09/07/2014 09/07/2014 [facility] Unknown [id number] 09/07/2014 09/07/2014 [facility] Unknown [id number] 09/07/2014 09/07/2014 [facility] Unknown [id number] 09/07/2014 09/07/2014 [facility] Unknown [id number] 09/07/2014 09/07/2014 [facility] Unknown [id number] 09/07/2014 09/07/2014 [facility] Unknown [id number] 09/07/2014 09/07/2014 [facility] Unknown [id number] 09/07/2014 09/07/2014 [facility] Unknown [id number] 09/07/2014 09/07/2014 [facility] Unknown [id number] 09/07/2014 09/07/2014 [facility] Unknown [id number] 09/07/2014 09/07/2014 [facility] Unknown [id number] 09/07/2014 09/07/2014 [facility] Unknown [id number] 09/07/2014 09/07/2014 [facility] [id number] 09/08/2014 09/08/2014 [facility] [id number] 09/08/2014 09/08/2014 [facility] [id number] 09/08/2014 09/08/2014 [facility] [id number] 09/08/2014 09/08/2014 [facility] [id number] 09/08/2014 09/08/2014 [facility] [id number] 09/08/2014 09/08/2014 [facility] [id number] 09/08/2014 09/08/2014 [facility] [id number] 09/08/2014 09/08/2014 [facility] [id number] 09/08/2014 09/08/2014 [facility] [id number] 09/08/2014 09/08/2014 [facility] [id number] 09/08/2014 09/08/2014 [facility] [id number] 09/08/2014 09/08/2014 [facility] [id number] 09/08/2014 09/08/2014 [facility] [id number] 09/08/2014 09/08/2014 [facility] [id number] 09/08/2014 09/08/2014 [facility] [id number] 09/08/2014 09/08/2014 [facility] [id number] 09/08/2014 09/08/2014 [facility] [id number] 09/08/2014 09/08/2014 [facility] [id number] 09/08/2014 09/08/2014 [facility] [id number] 09/08/2014 09/08/2014 [facility] [id number] 09/08/2014 09/08/2014 [facility] [id number] 09/08/2014 09/08/2014 [facility] [id number] 09/08/2014 09/08/2014 [facility] [id number] 09/08/2014 09/08/2014 [facility] [id number] 09/08/2014 09/08/2014 [facility] [id number] 09/08/2014 09/08/2014 [facility] [id number] 09/08/2014 09/08/2014 [facility] [id number] 09/08/2014 09/08/2014 [facility] Unknown [id number] 10/13/2014 10/13/2014 [facility] Unknown [id number] 10/13/2014 10/13/2014 [facility] Unknown [id number] 10/13/2014 10/13/2014 [facility] Unknown [id number] 10/13/2014 10/13/2014 [facility] Unknown [id number] 10/13/2014 10/13/2014 [facility] Unknown [id number] 10/13/2014 10/13/2014 [facility] Unknown [id number] 10/13/2014 10/13/2014 [facility] Unknown [id number] 10/13/2014 10/13/2014 [facility] Unknown [id number] 10/13/2014 10/13/2014 [facility] Unknown [id number] 10/13/2014 10/13/2014 [facility] Unknown [id number] 10/13/2014 10/13/2014 [facility] Unknown [id number] 10/13/2014 10/13/2014 [facility] Unknown [id number] 10/13/2014 10/13/2014 [facility] [id number] 10/13/2014 10/13/2014 [facility] [id number] 10/13/2014 10/13/2014 [facility] Unknown [id number] 10/13/2014 10/13/2014 [facility] [id number] 10/13/2014 10/13/2014 [facility] Unknown [id number] 10/13/2014 10/13/2014 [facility] Unknown [id number] 10/13/2014 10/13/2014 [facility] Unknown [id number] 10/13/2014 10/13/2014 [facility] Unknown [id number] 10/13/2014 10/13/2014 [facility] Unknown [id number] 10/13/2014 10/13/2014 [facility] Unknown [id number] 10/13/2014 10/13/2014 [facility] Unknown [id number] 10/13/2014 10/13/2014 [facility] Unknown [id number] 10/13/2014 10/13/2014 [facility] Unknown [id number] 10/13/2014 10/13/2014 [facility] Unknown [id number] 10/13/2014 10/13/2014 [facility] Unknown [id number] 10/13/2014 10/13/2014 [facility] [id number] 10/30/2014 10/30/2014 [facility] [id number] 10/30/2014 10/30/2014 [facility] [id number] 10/30/2014 10/30/2014 [facility] [id number] 10/30/2014 10/30/2014 [facility] [id number] 10/30/2014 10/30/2014 [facility] [id number] 10/30/2014 10/30/2014 [facility] [id number] 10/30/2014 10/30/2014 [facility] [id number] 10/30/2014 10/30/2014 [facility] [id number] 10/30/2014 10/30/2014 [facility] [id number] 10/30/2014 10/30/2014 [facility] [id number] 10/30/2014 10/30/2014 [facility] [id number] 10/30/2014 10/30/2014 [facility] [id number] 10/30/2014 10/30/2014 [facility] [id number] 10/30/2014 10/30/2014 [facility] [id number] 10/30/2014 10/30/2014 [facility] [id number] 10/30/2014 10/30/2014 [facility] [id number] 10/30/2014 10/30/2014 [facility] [id number] 10/30/2014 10/30/2014 [facility] [id number] 10/30/2014 10/30/2014 [facility] [id number] 10/30/2014 10/30/2014 [facility] [id number] 10/30/2014 10/30/2014 [facility] [id number] 10/30/2014 10/30/2014 [facility] [id number] 10/30/2014 10/30/2014 [facility] [id number] 10/30/2014 10/30/2014 [facility] [id number] 10/30/2014 10/30/2014 [facility] [id number] 10/31/2014 10/31/2014 [facility] [id number] 10/31/2014 10/31/2014 [facility] [id number] 10/31/2014 10/31/2014 [facility] [id number] 10/31/2014 10/31/2014 [facility] [id number] 10/31/2014 10/31/2014 [facility] [id number] 10/31/2014 10/31/2014 [facility] [id number] 10/31/2014 10/31/2014 [facility] [id number] 10/31/2014 10/31/2014 [facility] [id number] 10/31/2014 10/31/2014 [facility] [id number] 10/31/2014 10/31/2014 [facility] [id number] 10/31/2014 10/31/2014 [facility] [id number] 10/31/2014 10/31/2014 [facility] [id number] 10/31/2014 10/31/2014 [facility] [id number] 10/31/2014 10/31/2014 [facility] [id number] 10/31/2014 10/31/2014 [facility] [id number] 10/31/2014 10/31/2014 [facility] [id number] 10/31/2014 10/31/2014 [facility] [id number] 10/31/2014 10/31/2014 [facility] [id number] 10/31/2014 10/31/2014 [facility] [id number] 10/31/2014 10/31/2014 [facility] [id number] 10/31/2014 10/31/2014 [facility] [id number] 10/31/2014 10/31/2014 [facility] [id number] 10/31/2014 10/31/2014 [facility] [id number] 10/31/2014 10/31/2014 [facility] [id number] 10/31/2014 10/31/2014 [facility] [id number] 10/31/2014 10/31/2014 [facility] [id number] 10/31/2014 10/31/2014 [facility] [id number] 10/31/2014 10/31/2014 [facility] [id number] 10/31/2014 10/31/2014 [facility] [id number] 10/31/2014 10/31/2014 [facility] [id number] 10/31/2014 10/31/2014 [facility] [id number] 01/09/2015 01/09/2015 [facility] [id number] 01/09/2015 01/09/2015 [facility] [id number] 01/09/2015 01/09/2015 [facility] [id number] 01/09/2015 01/09/2015 [facility] [id number] 01/09/2015 01/09/2015 [facility] [id number] 01/09/2015 01/09/2015 [facility] [id number] 01/09/2015 01/09/2015 [facility] [id number] 01/09/2015 01/09/2015 [facility] [id number] 01/09/2015 01/09/2015 [facility] [id number] 01/09/2015 01/09/2015 [facility] [id number] 01/09/2015 01/09/2015 [facility] [id number] 01/09/2015 01/09/2015 [facility] [id number] 01/09/2015 01/09/2015 [facility] [id number] 01/09/2015 01/09/2015 [facility] [id number] 01/09/2015 01/09/2015 [facility] [id number] 01/09/2015 01/09/2015 [facility] [id number] 01/09/2015 01/09/2015 [facility] [id number] 01/09/2015 01/09/2015 [facility] [id number] 01/09/2015 01/09/2015 [facility] [id number] 01/09/2015 01/09/2015 [facility] [id number] 01/09/2015 01/09/2015 [facility] [id number] 01/09/2015 01/09/2015 [facility] [id number] 01/09/2015 01/09/2015 [facility] [id number] 01/09/2015 01/09/2015 [facility] [id number] 01/09/2015 01/09/2015 [facility] [id number] 01/09/2015 01/09/2015 [facility] [id number] 01/09/2015 01/09/2015 [facility] [id number] 01/09/2015 01/09/2015 [facility] RX [id number] 01/10/2015 01/10/2015 [facility] [id number] 01/10/2015 01/10/2015 [facility] RX [id number] 01/10/2015 01/10/2015 [facility] [id number] 01/10/2015 01/10/2015 [facility] [id number] 01/10/2015 01/10/2015 [facility] [id number] 01/10/2015 01/10/2015 [facility] [id number] 01/10/2015 01/10/2015 [facility] RX [id number] 01/10/2015 01/10/2015 [facility] [id number] 01/10/2015 01/10/2015 [facility] [id number] 01/10/2015 01/10/2015 [facility] RX [id number] 01/10/2015 01/10/2015 [facility] RX [id number] 01/10/2015 01/10/2015 [facility] [id number] 01/10/2015 01/10/2015 [facility] RX [id number] 01/10/2015 01/10/2015 [facility] [id number] 01/10/2015 01/10/2015 [facility] RX [id number] 01/10/2015 01/10/2015 [facility] RX [id number] 01/10/2015 01/10/2015 [facility] RX [id number] 01/10/2015 01/10/2015 [facility] RX [id number] 01/10/2015 01/10/2015 [facility] RX [id number] 01/10/2015 01/10/2015 [facility] RX [id number] 01/10/2015 01/10/2015 [facility] [id number] 01/10/2015 01/10/2015 [facility] RX [id number] 01/10/2015 01/10/2015 [facility] [id number] 01/10/2015 01/10/2015 [facility] [id number] 01/10/2015 01/10/2015 [facility] RX [id number] 01/10/2015 01/10/2015 [facility] RX [id number] 01/10/2015 01/10/2015 [facility] RX [id number] 01/10/2015 01/10/2015 [facility] Unknown [id number] 05/03/2015 05/03/2015 [facility] Unknown [id number] 05/03/2015 05/03/2015 [facility] Unknown [id number] 05/03/2015 05/03/2015 [facility] Unknown [id number] 05/03/2015 05/03/2015 [facility] Unknown [id number] 05/03/2015 05/03/2015 [facility] Unknown [id number] 05/03/2015 05/03/2015 [facility] Unknown [id number] 05/03/2015 05/03/2015 [facility] Unknown [id number] 05/03/2015 05/03/2015 [facility] Unknown [id number] 05/03/2015 05/03/2015 [facility] Unknown [id number] 05/03/2015 05/03/2015 [facility] Unknown [id number] 05/03/2015 05/03/2015 [facility] Unknown [id number] 05/03/2015 05/03/2015 [facility] Unknown [id number] 05/03/2015 05/03/2015 [facility] Unknown [id number] 05/03/2015 05/03/2015 [facility] Unknown [id number] 05/03/2015 05/03/2015 [facility] Unknown [id number] 05/03/2015 05/03/2015 [facility] Unknown [id number] 05/03/2015 05/03/2015 [facility] Unknown [id number] 05/03/2015 05/03/2015 [facility] Unknown [id number] 05/03/2015 05/03/2015 [facility] Unknown [id number] 05/03/2015 05/03/2015 [facility] Unknown [id number] 05/03/2015 05/03/2015 [facility] Unknown [id number] 05/03/2015 05/03/2015 [facility] Unknown [id number] 05/03/2015 05/03/2015 [facility] Unknown [id number] 05/03/2015 05/03/2015 [facility] Unknown [id number] 05/03/2015 05/03/2015 [facility] Unknown [id number] 05/03/2015 05/03/2015 [facility] Unknown [id number] 05/03/2015 05/03/2015 [facility] Unknown [id number] 05/03/2015 05/03/2015 [facility] [id number] 07/02/2015 07/02/2015 [facility] [id number] 07/02/2015 07/02/2015 [facility] [id number] 07/02/2015 07/02/2015 [facility] [id number] 07/02/2015 07/02/2015 [facility] [id number] 07/02/2015 07/02/2015 [facility] [id number] 07/02/2015 07/02/2015 [facility] [id number] 07/02/2015 07/02/2015 [facility] [id number] 07/02/2015 07/02/2015 [facility] [id number] 07/02/2015 07/02/2015 [facility]ance [id number] 07/02/2015 07/02/2015 [facility] [id number] 07/02/2015 07/02/2015 [facility] [id number] 07/02/2015 07/02/2015 [facility] [id number] 07/02/2015 07/02/2015 [facility] [id number] 07/02/2015 07/02/2015 [facility] [id number] 07/02/2015 07/02/2015 [facility] [id number] 07/02/2015 07/02/2015 [facility] [id number] 07/02/2015 07/02/2015 [facility] [id number] 07/02/2015 07/02/2015 [facility] [id number] 07/02/2015 07/02/2015 [facility] [id number] 07/02/2015 07/02/2015 [facility] [id number] 07/02/2015 07/02/2015 [facility] [id number] 07/02/2015 07/02/2015 [facility] Clear[facility] [id number] 07/02/2015 07/02/2015 [facility] [id number] 07/02/2015 07/02/2015 [facility] [id number] 07/02/2015 07/02/2015 [facility] [id number] 07/02/2015 07/02/2015 [facility] [id number] 07/02/2015 07/02/2015 [facility] Unknown [id number] 08/29/2015 08/29/2015 [facility] Unknown [id number] 08/29/2015 08/29/2015 [facility] Unknown [id number] 08/29/2015 08/29/2015 [facility] Unknown [id number] 08/29/2015 08/29/2015 [facility] Unknown [id number] 08/29/2015 08/29/2015 [facility] Unknown [id number] 08/29/2015 08/29/2015 [facility] Unknown [id number] 08/29/2015 08/29/2015 [facility] Unknown [id number] 08/29/2015 08/29/2015 [facility] Unknown [id number] 08/29/2015 08/29/2015 [facility] Unknown [id number] 08/29/2015 08/29/2015 [facility] Unknown [id number] 08/29/2015 08/29/2015 [facility] Unknown [id number] 08/29/2015 08/29/2015 [facility] Unknown [id number] 08/29/2015 08/29/2015 [facility] Unknown [id number] 08/29/2015 08/29/2015 [facility] Unknown [id number] 08/29/2015 08/29/2015 [facility] [place] [id number] 08/29/2015 08/29/2015 [facility] Unknown [id number] 08/29/2015 08/29/2015 [facility] Unknown [id number] 08/29/2015 08/29/2015 [facility] Unknown [id number] 08/29/2015 08/29/2015 [facility] Unknown [id number] 08/29/2015 08/29/2015 [facility] Unknown [id number] 08/29/2015 08/29/2015 [facility] Unknown [id number] 08/29/2015 08/29/2015 [facility] Unknown [id number] 08/29/2015 08/29/2015 [facility] Unknown [id number] 08/29/2015 08/29/2015 [facility] Unknown [id number] 08/29/2015 08/29/2015 [facility] Unknown [id number] 08/29/2015 08/29/2015 [facility] Unknown [id number] 09/04/2015 09/04/2015 [facility] Unknown [id number] 09/04/2015 09/04/2015 [facility] [place] [id number] 09/04/2015 09/04/2015 [facility] Unknown [id number] 09/04/2015 09/04/2015 [facility] Unknown [id number] 09/04/2015 09/04/2015 [facility] Unknown [id number] 09/04/2015 09/04/2015 [facility] Unknown [id number] 09/04/2015 09/04/2015 [facility] Unknown [id number] 09/04/2015 09/04/2015 [facility] Unknown [id number] 09/04/2015 09/04/2015 [facility] Unknown [id number] 09/04/2015 09/04/2015 [facility] Unknown [id number] 09/04/2015 09/04/2015 [facility] Unknown [id number] 09/04/2015 09/04/2015 [facility] Unknown [id number] 09/04/2015 09/04/2015 [facility] Unknown [id number] 09/04/2015 09/04/2015 [facility] Unknown [id number] 09/04/2015 09/04/2015 [facility] Unknown [id number] 09/04/2015 09/04/2015 [facility] Unknown [id number] 09/04/2015 09/04/2015 [facility] Unknown [id number] 09/04/2015 09/04/2015 [facility] Unknown [id number] 09/04/2015 09/04/2015 [facility] Unknown [id number] 09/04/2015 09/04/2015 [facility] Unknown [id number] 09/04/2015 09/04/2015 [facility] Unknown [id number] 09/04/2015 09/04/2015 [facility] Unknown [id number] 09/04/2015 09/04/2015 [facility] Unknown [id number] 09/04/2015 09/04/2015 [facility] [id number] 09/04/2015 09/04/2015 [facility] [place] [id number] 10/17/2015 10/17/2015 [facility] [place] [id number] 10/17/2015 10/17/2015 [facility] [place] [id number] 10/17/2015 10/17/2015 [facility] [place] [id number] 10/17/2015 10/17/2015 [facility] [place] [id number] 10/17/2015 10/17/2015 [facility] [place] [id number] 10/17/2015 10/17/2015 [facility] [place] [id number] 10/17/2015 10/17/2015 [facility] [place] [id number] 10/17/2015 10/17/2015 [facility] [place] [facility] [place] [id number] 10/17/2015 10/17/2015 [facility] [place] [id number] 10/17/2015 10/17/2015 [facility] [place] [id number] 10/17/2015 10/17/2015 [facility] [place] [id number] 10/17/2015 10/17/2015 [facility] [place] [id number] 10/17/2015 10/17/2015 [facility] [place] [id number] 10/17/2015 10/17/2015 [facility] [place] [id number] 10/17/2015 10/17/2015 [facility] [place] [id number] 10/17/2015 10/17/2015 [facility] [place] [facility] [place] [id number] 10/17/2015 10/17/2015 [facility] [place] [id number] 10/17/2015 10/17/2015 [facility] [place] [id number] 10/17/2015 10/17/2015 [facility] [place] [id number] 10/17/2015 10/17/2015 [facility] [place] [id number] 10/17/2015 10/17/2015 [facility] [place] [facility] [place] [id number] 10/17/2015 10/17/2015 [facility] [place] [facility] [place] [id number] 10/17/2015 10/17/2015 [facility] [place] [facility] [place] [id number] 10/18/2015 10/18/2015 [facility] Unknown [id number] 10/18/2015 10/18/2015 [facility] Unknown [id number] 10/18/2015 10/18/2015 [facility] Unknown [id number] 10/18/2015 10/18/2015 [facility] Unknown [id number] 10/18/2015 10/18/2015 [facility] Unknown [id number] 10/18/2015 10/18/2015 [facility] Unknown [id number] 10/18/2015 10/18/2015 [facility] Unknown [id number] 10/18/2015 10/18/2015 [facility] Unknown [id number] 10/18/2015 10/18/2015 [facility] Unknown [id number] 10/18/2015 10/18/2015 [facility] Unknown [id number] 10/18/2015 10/18/2015 [facility] Unknown [id number] 10/18/2015 10/18/2015 [facility] Unknown [id number] 10/18/2015 10/18/2015 [facility] Unknown [id number] 10/18/2015 10/18/2015 [facility] Unknown [id number] 10/18/2015 10/18/2015 [facility] Unknown [id number] 10/18/2015 10/18/2015 [facility] Unknown [id number] 10/18/2015 10/18/2015 [facility] Unknown [id number] 10/18/2015 10/18/2015 [facility] Unknown [id number] 10/18/2015 10/18/2015 [facility] Unknown [id number] 10/18/2015 10/18/2015 [facility] Unknown [id number] 10/18/2015 10/18/2015 [facility] Unknown [id number] 10/18/2015 10/18/2015 [facility] Unknown [id number] 10/18/2015 10/18/2015 [facility] Unknown [id number] 10/18/2015 10/18/2015 [facility] message [id number] 11/07/2015 11/07/2015 [facility] message [id number] 11/07/2015 11/07/2015 [facility] message [id number] 11/07/2015 11/07/2015 [facility] message [id number] 11/07/2015 11/07/2015 [facility] message [id number] 11/07/2015 11/07/2015 [facility] message [id number] 11/07/2015 11/07/2015 [facility] message [id number] 11/07/2015 11/07/2015 [facility] message [id number] 11/07/2015 11/07/2015 [facility] message [id number] 11/07/2015 11/07/2015 [facility] message [id number] 11/07/2015 11/07/2015 [facility] message [id number] 11/07/2015 11/07/2015 [facility] message [id number] 11/07/2015 11/07/2015 [facility] message [id number] 11/07/2015 11/07/2015 [facility] message [id number] 11/07/2015 11/07/2015 [facility] message [id number] 11/07/2015 11/07/2015 [facility] message [id number] 11/07/2015 11/07/2015 [facility] message [id number] 11/07/2015 11/07/2015 [facility] message [id number] 11/07/2015 11/07/2015 [facility] message [id number] 11/07/2015 11/07/2015 [facility] message [id number] 11/07/2015 11/07/2015 [facility] message [id number] 11/07/2015 11/07/2015 [facility] message [id number] 11/07/2015 11/07/2015 [facility] Unknown [id number] 11/14/2015 11/14/2015 [facility] Unknown [id number] 11/14/2015 11/14/2015 [facility] Unknown [id number] 11/14/2015 11/14/2015 [facility] Unknown [id number] 11/14/2015 11/14/2015 [facility] Unknown [id number] 11/14/2015 11/14/2015 [facility] Unknown [id number] 11/14/2015 11/14/2015 [facility] Unknown [id number] 11/14/2015 11/14/2015 [facility] Unknown [id number] 11/14/2015 11/14/2015 [facility] Unknown [id number] 11/14/2015 11/14/2015 [facility] Unknown [id number] 11/14/2015 11/14/2015 [facility] Unknown [id number] 11/14/2015 11/14/2015 [facility] Unknown [id number] 11/14/2015 11/14/2015 [facility] Unknown [id number] 11/14/2015 11/14/2015 [facility] Unknown [id number] 11/14/2015 11/14/2015 [facility] Unknown [id number] 11/14/2015 11/14/2015 [facility] Unknown [id number] 11/14/2015 11/14/2015 [facility] Unknown [id number] 11/14/2015 11/14/2015 [facility] Unknown [id number] 11/14/2015 11/14/2015 [facility] Unknown [id number] 11/14/2015 11/14/2015 [facility] Unknown [id number] 11/14/2015 11/14/2015 [facility] Unknown [id number] 11/15/2015 11/15/2015 [facility] Unknown [id number] 11/15/2015 11/15/2015 [facility] Unknown [id number] 11/15/2015 11/15/2015 [facility] Unknown [id number] 11/15/2015 11/15/2015 [facility] Unknown [id number] 11/15/2015 11/15/2015 [facility] Unknown [id number] 11/15/2015 11/15/2015 [facility] Unknown [id number] 11/15/2015 11/15/2015 [facility] Unknown [id number] 11/15/2015 11/15/2015 [facility] Unknown [id number] 11/15/2015 11/15/2015 [facility] Unknown [id number] 11/15/2015 11/15/2015 [facility] Unknown [id number] 11/15/2015 11/15/2015 [facility] Unknown [id number] 11/15/2015 11/15/2015 [facility] Unknown [id number] 11/15/2015 11/15/2015 [facility] Unknown [id number] 11/15/2015 11/15/2015 [facility] Unknown [id number] 11/15/2015 11/15/2015 [facility] Unknown [id number] 11/15/2015 11/15/2015 [facility] Unknown [id number] 11/15/2015 11/15/2015 [facility] Unknown [id number] 11/15/2015 11/15/2015 [facility] FYI [id number] 11/19/2015 11/19/2015 [facility] FYI [id number] 11/19/2015 11/19/2015 [facility] FYI [id number] 11/19/2015 11/19/2015 [facility] FYI [id number] 11/19/2015 11/19/2015 [facility] FYI [id number] 11/19/2015 11/19/2015 [facility] FYI [id number] 11/19/2015 11/19/2015 [facility] FYI [id number] 11/19/2015 11/19/2015 [facility] FYI [id number] 11/19/2015 11/19/2015 [facility] FYI [id number] 11/19/2015 11/19/2015 [facility] FYI [id number] 11/19/2015 11/19/2015 [facility] FYI [id number] 11/19/2015 11/19/2015 [facility] FYI [id number] 11/19/2015 11/19/2015 [facility] [id number] 11/19/2015 11/19/2015 [facility] [id number] 11/19/2015 11/19/2015 [facility] [id number] 11/19/2015 11/19/2015 [facility] [id number] 11/19/2015 11/19/2015 [facility] [id number] 11/19/2015 11/19/2015 [facility] [id number] 11/19/2015 11/19/2015 [facility] [id number] 11/19/2015 11/19/2015 [facility] [id number] 11/19/2015 11/19/2015 [facility] [id number] 11/20/2015 11/20/2015 [facility] [id number] 11/20/2015 11/20/2015 [facility] [id number] 11/20/2015 11/20/2015 [facility] [id number] 11/20/2015 11/20/2015 [facility] [id number] 11/20/2015 11/20/2015 [facility] [id number] 11/20/2015 11/20/2015 [facility] [id number] 11/20/2015 11/20/2015 [facility] [id number] 11/20/2015 11/20/2015 [facility] [id number] 11/20/2015 11/20/2015 [facility] [id number] 11/20/2015 11/20/2015 [facility] [id number] 11/20/2015 11/20/2015 [facility] [id number] 11/20/2015 11/20/2015 [facility] [id number] 11/20/2015 11/20/2015 [facility] [id number] 11/20/2015 11/20/2015 [facility] [id number] 11/20/2015 11/20/2015 [facility] [id number] 11/20/2015 11/20/2015 [facility] [id number] 11/20/2015 11/20/2015 [facility] [id number] 11/20/2015 11/20/2015 [facility] [id number] 11/20/2015 11/20/2015 [facility] [place] [place] [id number] 12/03/2015 12/03/2015 [facility] [id number] 12/03/2015 12/03/2015 [facility] [facility] [place] [facility] [place] [id number] 12/03/2015 12/03/2015 [facility], [facility] [place] [id number] 12/03/2015 12/03/2015 [facility], [facility] [place] [id number] 12/03/2015 12/03/2015 [facility], [facility] [place] [id number] 12/03/2015 12/03/2015 [facility], [facility] [place] [id number] 12/03/2015 12/03/2015 [facility], [facility] [place] [id number] 12/03/2015 12/03/2015 [facility], [facility] [place] [id number] 12/03/2015 12/03/2015 [facility] [place] [id number] 12/03/2015 12/03/2015 [facility]LS[facility] [place] [id number] 12/03/2015 12/03/2015 [facility] [place] [id number] 12/03/2015 12/03/2015 [facility] [place] [id number] 12/03/2015 12/03/2015 [facility] [place] [id number] 12/03/2015 12/03/2015 [facility], [facility] [place] [id number] 12/03/2015 12/03/2015 [facility] [place] [id number] 12/03/2015 12/03/2015 [facility] [place] [id number] 12/03/2015 12/03/2015 [facility] [place] [facility] [place] [id number] 12/03/2015 12/03/2015 [facility] Unknown [id number] 12/04/2015 12/04/2015 [facility] Unknown [id number] 12/04/2015 12/04/2015 [facility] Unknown [id number] 12/04/2015 12/04/2015 [facility] Unknown [id number] 12/04/2015 12/04/2015 [facility] Unknown [id number] 12/04/2015 12/04/2015 [facility] Unknown [id number] 12/04/2015 12/04/2015 [facility] Unknown [id number] 12/04/2015 12/04/2015 [facility] Unknown [id number] 12/04/2015 12/04/2015 [facility] Unknown [id number] 12/04/2015 12/04/2015 [facility] Unknown [id number] 12/04/2015 12/04/2015 [facility] Unknown [id number] 12/04/2015 12/04/2015 [facility] wants to r/s echo please [id number] 12/17/2015 12/17/2015 [facility] wants to r/s echo please [id number] 12/17/2015 12/17/2015 [facility] wants to r/s echo please [id number] 12/17/2015 12/17/2015 [facility] wants to r/s echo please [id number] 12/17/2015 12/17/2015 [facility] wants to r/s echo please [id number] 12/17/2015 12/17/2015 [facility] wants to r/s echo please [id number] 12/17/2015 12/17/2015 [facility] wants to r/s echo please [id number] 12/17/2015 12/17/2015 [facility] wants to r/s echo please [id number] 12/17/2015 12/17/2015 [facility] wants to r/s echo please [id number] 12/17/2015 12/17/2015 [facility] wants to r/s echo please [id number] 12/17/2015 12/17/2015 [facility] wants to r/s echo please [id number] 12/17/2015 12/17/2015 [facility] wants to r/s echo please [id number] 12/17/2015 12/17/2015 [facility] wants to r/s echo please [id number] 12/17/2015 12/17/2015 [facility] wants to r/s echo please [id number] 12/17/2015 12/17/2015 [facility] wants to r/s echo please [id number] 12/17/2015 12/17/2015 [facility] wants to r/s echo please [id number] 12/17/2015 12/17/2015 [facility] [id number] 12/21/2015 12/21/2015 [facility] [id number] 12/21/2015 12/21/2015 [facility] [id number] 12/21/2015 12/21/2015 [facility] [id number] 12/21/2015 12/21/2015 [facility] [id number] 12/21/2015 12/21/2015 [facility] [id number] 12/21/2015 12/21/2015 [facility] [id number] 12/21/2015 12/21/2015 [facility] [id number] 12/21/2015 12/21/2015 [facility] [id number] 12/21/2015 12/21/2015 [facility] [id number] 12/21/2015 12/21/2015 [facility] [id number] 12/21/2015 12/21/2015 [facility] [id number] 12/21/2015 12/21/2015 [facility] [id number] 12/21/2015 12/21/2015 [facility] [id number] 12/21/2015 12/21/2015 [facility] [id number] 12/21/2015 12/21/2015 [facility] Unknown [id number] 12/25/2015 12/25/2015 [facility] Unknown [id number] 12/25/2015 12/25/2015 [facility] Unknown [id number] 12/25/2015 12/25/2015 [facility] Unknown [id number] 12/25/2015 12/25/2015 [facility] Unknown [id number] 12/25/2015 12/25/2015 [facility] Unknown [id number] 12/25/2015 12/25/2015 [facility] Unknown [id number] 12/25/2015 12/25/2015 [facility] Unknown [id number] 12/25/2015 12/25/2015 [facility] Unknown [id number] 12/25/2015 12/25/2015 [facility] Unknown [id number] 12/25/2015 12/25/2015 [facility] Unknown [id number] 01/07/2016 01/07/2016 [facility] Unknown [id number] 01/07/2016 01/07/2016 [facility] Unknown [id number] 01/07/2016 01/07/2016 [facility] Unknown [id number] 01/07/2016 01/07/2016 [facility] Unknown [id number] 01/07/2016 01/07/2016 [facility] Unknown [id number] 01/07/2016 01/07/2016 [facility] Unknown [id number] 01/07/2016 01/07/2016 [facility] Unknown [id number] 01/07/2016 01/07/2016 [facility] Unknown [id number] 01/07/2016 01/07/2016 [facility] Unknown [id number] 01/07/2016 01/07/2016 [facility] Unknown [id number] 01/07/2016 01/07/2016 [facility] Unknown [id number] 01/07/2016 01/07/2016 [facility] Unknown [id number] 01/07/2016 01/07/2016 [facility] Unknown [id number] 01/07/2016 01/07/2016 [facility] Arterial results [id number] 01/08/2016 01/08/2016 [facility] Arterial results [id number] 01/08/2016 01/08/2016 [facility] Arterial results [id number] 01/08/2016 01/08/2016 [facility] Arterial results [id number] 01/08/2016 01/08/2016 [facility] Arterial results [id number] 01/08/2016 01/08/2016 [facility] Arterial results [id number] 01/08/2016 01/08/2016 [facility] Arterial results [id number] 01/08/2016 01/08/2016 [facility] Arterial results [id number] 01/08/2016 01/08/2016 [facility] Arterial results [id number] 01/08/2016 01/08/2016 [facility] Arterial results [id number] 01/08/2016 01/08/2016 [facility] Arterial results [id number] 01/08/2016 01/08/2016 [facility] Arterial results [id number] 01/08/2016 01/08/2016 [facility] Arterial results [id number] 01/08/2016 01/08/2016 [facility] Message [id number] 01/10/2016 01/10/2016 [facility] Message [id number] 01/10/2016 01/10/2016 [facility] Message [id number] 01/10/2016 01/10/2016 [facility] Message [id number] 01/10/2016 01/10/2016 [facility] Message [id number] 01/10/2016 01/10/2016 [facility] Message [id number] 01/10/2016 01/10/2016 [facility] Message [id number] 01/10/2016 01/10/2016 [facility] Message [id number] 01/10/2016 01/10/2016 [facility] Message [id number] 01/10/2016 01/10/2016 [facility] Message [id number] 01/10/2016 01/10/2016 [facility] Message [id number] 01/10/2016 01/10/2016 [facility] Message [id number] 01/10/2016 01/10/2016 [facility] Message [id number] 01/15/2016 01/15/2016 [facility] Message [id number] 01/15/2016 01/15/2016 [facility] Message [id number] 01/15/2016 01/15/2016 [facility] Message [id number] 01/15/2016 01/15/2016 [facility] Message [id number] 01/15/2016 01/15/2016 [facility] Message [id number] 01/15/2016 01/15/2016 [facility] Message [id number] 01/15/2016 01/15/2016 [facility] Message [id number] 01/15/2016 01/15/2016 [facility] [id number] 01/15/2016 01/15/2016 [facility] [place] [id number] 01/21/2016 01/21/2016 [facility] [place] [id number] 01/21/2016 01/21/2016 [facility] [place] [id number] 01/21/2016 01/21/2016 [facility] [place] [id number] 01/21/2016 01/21/2016 [facility] [place] [id number] 01/21/2016 01/21/2016 [facility] [place] [id number] 01/21/2016 01/21/2016 [facility] [place] [facility] [place] [id number] 01/21/2016 01/21/2016 [facility] [place] [id number] 01/21/2016 01/21/2016 [facility] Unknown [id number] 01/22/2016 01/22/2016 [facility] Unknown [id number] 01/22/2016 01/22/2016 [facility] RE: BP's, D/C Acebutolol [id number] 01/24/2016 01/24/2016 [facility] RE: BP's, D/C Acebutolol [id number] 01/24/2016 01/24/2016 [facility] RE: BP's, D/C Acebutolol [id number] 01/24/2016 01/24/2016 [facility] RE: BP's, D/C Acebutolol [id number] 01/24/2016 01/24/2016 [facility] RE: BP's, D/C Acebutolol [id number] 01/24/2016 01/24/2016 [facility] RE: BP's, D/C Acebutolol [id number] 01/24/2016 01/24/2016 [facility] RE: BP's, D/C Acebutolol [id number] 01/24/2016 01/24/2016 [facility] RE: Bp's [id number] 01/28/2016 01/28/2016 [facility] RE: Bp's [id number] 01/28/2016 01/28/2016 [facility] RE: Bp's [id number] 01/28/2016 01/28/2016 [facility] RE: Bp's [id number] 01/28/2016 01/28/2016 [facility] RE: Bp's [id number] 01/28/2016 01/28/2016 [facility] RE: Bp's [id number] 01/28/2016 01/28/2016 [facility] Billing [id number] 01/31/2016 01/31/2016 [facility] Billing [id number] 01/31/2016 01/31/2016 [facility] Billing [id number] 01/31/2016 01/31/2016 [facility] Billing [id number] 01/31/2016 01/31/2016 [facility] Billing [id number] 01/31/2016 01/31/2016 [facility] Arterial Study [id number] 02/05/2016 02/05/2016 [facility] Arterial Study [id number] 02/05/2016 02/05/2016 [facility] Arterial Study [id number] 02/05/2016 02/05/2016 [facility] Arterial Study [id number] 02/05/2016 02/05/2016 [facility] Arterial Study [id number] 02/05/2016 02/05/2016 [facility] Refills [id number] 02/05/2016 02/05/2016 [facility] Refills [id number] 02/05/2016 02/05/2016 [facility] Refills [id number] 02/05/2016 02/05/2016 [facility] 2015 [id number] 04/17/2016 04/17/2016 [facility] [id number] [facility] 02/15/2018 02/16/2018 [facility] Procedures No Data Provided for This Section Assessment and Plan No Data Provided for This Section Plan of Care No Data Provided for This Section Social History Social History Date Source No data available for this section 02/16/2018 [facility] Social History ElementQualifiersDate Reported Caffeine: no. Jan 22, 2016 Tobacco Use: . Smoking Status: never smoker Jan 22, 2016 Alcohol: no. 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
--- OUTSIDE RECORDS SUMMARY | 2018-12-14 05:51 | XMS REPORT ---
Author Author Percy Snow Organization [employer] Address Unknown Phone Unavailable Care Team Providers Care [facility] Miner Name Role Phone Percy Snow CP Unavailable Encounters Encounter Location Date Unknown [facility] October 13, 2014 [facility] Mar 14, 2014 [facility] Jan 12, 2014 [facility] Nov 29, 2013 Unknown [facility] August 29, 2015 Unknown [facility] September 04, 2015 Unknown [facility] May 03, 2015 Clearance [facility] July 02, 2015 Refills [facility] Jan 09, 2015 RX [facility] Jan 10, 2015 Refills [facility] October 30, 2014 Refills [facility] October 31, 2014 [facility] 2015 [facility] October 17, 2015 Unknown [facility] Feb 02, 2014 LE-edema [facility] Mar 27, 2014 Unknown [facility] Apr 13, 2014 Refills [facility] September 05, 2014 labs [facility] November 14, 2013 Unknown [facility] November 02, 2013 records [facility] Dec 07, 2013 message [facility] November 07, 2015 Unknown [facility] October 18, 2015 Refills [facility] September 08, 2014 Unknown [facility] September 07, 2014 Unknown [facility] November 15, 2015 wants to r/s echo please [facility] Dec 17, 2015 [facility] May 30, 2013 [facility] 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 Active Problem Edema 782.3 Active Problem Rectal cancer 154.1 Active Problem Heart failure, unspecified I50.9 Active Problem Type 2 diabetes mellitus without complications E11.9 Active Problem Claudication of lower extremity I73.9 Active Problem Essential (primary) hypertension I10 Active Problem 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 Dec 04, 2015 Tobacco Use: . Smoking Status: never smoker Dec 04, 2015 Alcohol: no. Dec 04, 2015 Occupation: . Retired early childhood education specialist taker Dec 04, 2015 Summary Purpose eClinicalWorks Submission
--- OUTSIDE RECORDS SUMMARY | 2018-12-14 05:51 | XMS REPORT ---
Author Author Percy Snow Organization eClinicalWorks Address Unknown Phone Unavailable Care Team Providers Care Freight Car Loader Name Role Phone Percy Snow CP Unavailable Encounters Encounter Location Date Unknown [facility] October 13, 2014 Unknown [facility] August 29, [...] [facility] October 31, 2014 [facility] [email or web address] [facility] 2016 [facility] October 17, 2015 [facility] September 07, 2014 [facility] Nov 29, 2013 [facility] Jan 12, 2014 [facility] Mar 14, 2014 Unknown [facility] November 14, 2015 FYI [facility] November 19, 2015 [facility] May 30, 2013 [facility] 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 Problem Edema 782.3 Active Problem Palpitations R00.2 Active Problem Essential (primary) hypertension I10 Active Problem Diabetes mellitus type II 250.00 Active Problem Hyperlipidemia 272.4 Active Problem Benign hypertension 401.1 Active Problem Hypertension 401.9 Active Problem 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 Active Problem 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 November 15, 2015 Tobacco Use: . Smoking Status: never smoker November 15, 2015 Alcohol: no. 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
--- OUTSIDE RECORDS SUMMARY | 2018-12-14 05:51 | XMS REPORT ---
Author Author Percy Snow Organization [employer] Address Unknown Phone Unavailable Care Team Providers Care Silvering Department Supervisor Name Role Phone Percy Snow CP Unavailable [facility] October [facility], 2014 [facility] [employer] [facility] 2016 [facility] October 17, [...] [facility] September 07, 2014 Unknown [facility] Jan 12, 2014 [facility] Mar 14, 2014 Unknown [facility] November 14, 2015 Unknown [facility] May 30, 2013 Unknown [facility] August 30, 2013 Unknown [facility] 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 October 18, 2015 Tobacco Use: . Smoking Status: never smoker October 18, 2015 Alcohol: no. 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
--- OUTSIDE RECORDS SUMMARY | 2018-12-14 05:51 | XMS REPORT ---
Author Author Percy Snow Organization [employer] Address Unknown Phone Unavailable Care Team Providers Care Learning Center Instructor Name Role Phone Percy Snow CP Unavailable Encounters Encounter Location Date Unknown [facility] October 13, 2014 [facility] Mar 14, 2014 Unknown [facility] August [...] [facility] October 31, 2014 [facility] 2015 [facility] October 17, [...] [facility] September 07, 2014 Unknown [facility] May 30, 2013 Unknown [facility] August 30, 2013 Unknown [facility] Nov 29, 2013 Unknown [facility] 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 November 15, 2015 Tobacco Use: . Smoking Status: never smoker November 15, 2015 Alcohol: no. 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
--- OUTSIDE RECORDS SUMMARY | 2018-12-14 05:51 | XMS REPORT ---
Author Author Percy Snow Organization eClinicalWorks Address Unknown Phone Unavailable Care Team Providers Care Cabinet Maker Name Role Phone Percy Snow CP Unavailable Allergies, Adverse Reactions, Alerts Substance Reaction Event Type Aspirin Info Not Available Drug Allergy codeine Info Not Available Drug Allergy Encounters Encounter Location Date Unknown [facility] October 13, 2014 [facility] Mar 14, 2014 [facility] Jan 12, 2014 Unknown [facility] August [...] [facility] October 31, 2014 [facility] [employer] [facility] 2015 [facility] October 17, [...] [facility] November 15, 2015 Unknown [facility] May 30, 2013 Unknown [facility] August 30, 2013 Unknown [facility] 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 Active Problem Type 2 diabetes mellitus without complications E11.9 Active Assessment Type 2 diabetes mellitus without complications E11.9 Active Problem Shortness of breath R06.02 Active Problem Heart failure, unspecified I50.9 Active Problem 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 Problem Edema 782.3 Active Problem Palpitations R00.2 Active Problem Essential (primary) hypertension I10 Active Problem Diabetes mellitus type II 250.00 Active Problem Hyperlipidemia 272.4 Active Assessment Essential (primary) hypertension I10 Active Assessment Heart failure, unspecified I50.9 Active Problem Benign hypertension 401.1 Active Problem Hypertension 401.9 Active Problem 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 Active Problem Coronary atherosclerosis of [place]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 Active Problem Cardiac dysrhythmia, unspecified 427.9 Active Problem Cardiomyopathy NOS 425.4 Active Medications Medication Code System Code Instructions Start Date End Date Status Dosage Amlodipine Besylate MULTUM 900750 5 mg orally once a day November 15, 2015 Active 1 tab(s) Vitamin D3 MULTUM 4871 1000 intl units orally once a day Active 1 tab(s) Diovan MULTUM 8844 160 mg orally once a day Mar 27, 2014 Active 1 tab(s) Centrum Silver Women's MULTUM 290136 Therapeutic Multiple Vitamins with Minerals orally once a day Active 1 tab(s) lovastatin MULTUM 27721 20 mg orally once a day August 10, 2013 Active 1 tab(s) aspirin MULTUM 69324 81 mg orally once a day Active 1 tab(s) hydralazine MULTUM 62053 25 mg orally PRN for systolic >160 Active 1 tab(s) temazepam MULTUM 84755 30 mg orally once a day (at bedtime) Active 1 cap(s) gabapentin MULTUM 59002 300 mg orally tid Active 1 cap(s) NovoLog FlexPen MULTUM 47364 100 units/mL subcutaneously bid Active 6units Humalin Unknown 0 70/30 Active as directed levothyroxine MULTUM 11169 100 mcg (0.1 mg) orally once a day Active 1 tab(s) biotin MULTUM 613029 6329 mcg orally once a day Active 1 tab(s) Vitamin C MULTUM 1132 1000 mg orally once a day Active 1 tab(s) Levemir MULTUM 01049 100 units/mL subcutaneously qAM Active 20 units Social History Social History Element Qualifiers Date Reported Caffeine: no. Dec 04, 2015 Tobacco Use: . Smoking Status: never smoker Dec 04, 2015 Alcohol: no. 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
--- OUTSIDE RECORDS SUMMARY | 2018-12-14 05:51 | XMS REPORT ---
Author Author Percy Snow Organization eClinicalWorks Address Unknown Phone Unavailable Care Team Providers Care Millinery Blocker Name Role Phone Percy Snow CP Unavailable [...] [facility] October [facility], 2014 [facility] 2016 [facility] October [...] [facility] Dec 07, 2013 Unknown [facility] May 30, 2013 Unknown [facility] October 18, 2015 Refills [facility] September 08, 2014 Unknown [facility] September 07, 2014 Unknown [facility] August 30, 2013 Unknown [facility] Nov 29, 2013 Unknown [facility] Jan 12, 2014 Unknown [facility] 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 Problem Diabetes mellitus type II 250.00 Active Assessment Type 2 diabetes mellitus without complications E11.9 Active Assessment Essential (primary) hypertension I10 Active Problem Cardiac dysrhythmia, unspecified 427.9 Active Problem Benign hypertension 401.1 Active Problem Hyperlipidemia 272.4 Active Problem Hypertension 401.9 Active Problem 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 Active Problem Coronary atherosclerosis of [place]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 Active Medications Medication Code System Code Instructions Start Date End Date Status Dosage Humalin Unknown 0 70/30 Active as directed hydralazine MULTUM 85800 25 mg orally PRN for systolic >160 Active 1 tab(s) Klor-Con 8 MULTUM 3617 8 mEq orally daily May 11, 2012 Active 1 tab(s) lorazepam MULTUM 00374 0.5 mg orally 3 times a day Active 1 tab(s) Levemir MULTUM 50810 100 units/mL subcutaneously qAM Active 20 units temazepam MULTUM 35967 30 mg orally once a day (at bedtime) Active 1 cap(s) levothyroxine MULTUM 41430 100 mcg (0.1 mg) orally once a day Active 1 tab(s) lovastatin MULTUM 51383 20 mg orally once a day August 10, 2013 Active 1 tab(s) NovoLog FlexPen MULTUM 67851 100 units/mL subcutaneously bid Active 6units furosemide MULTUM 01373 40 mg orally once a day August 03, 2013 Active 1 tab(s) clopidogrel MULTUM 50591 75 mg orally once a day May 11, 2012 Active 1 tab(s) gabapentin MULTUM 81082 300 mg orally tid Active 1 cap(s) Centrum Silver Women's MULTUM 389328 Therapeutic Multiple Vitamins with Minerals orally once a day Active 1 tab(s) Diovan MULTUM 8844 160 mg orally once a day Mar 27, 2014 Active 1 tab(s) Social History Social History Element Qualifiers Date Reported Caffeine: no. October 18, 2015 Tobacco Use: . Smoking Status: never smoker October 18, 2015 Alcohol: no. 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
--- OUTSIDE RECORDS SUMMARY | 2018-12-14 05:51 | XMS REPORT ---
Author Author Percy Snow Organization eClinicalWorks Address Unknown Phone Unavailable Care Team Providers Care Knife Blade Polisher Name Role Phone Percy Snow CP Unavailable Encounters Encounter Location Date Unknown [facility] Feb 02, 2014 [facility] Mar 27, 2014 Unknown [facility] Apr 13, 2014 Refills [facility] September 05, 2014 labs [facility] November 14, 2013 Unknown [facility] November 02, 2013 records [facility] Dec 07, 2013 Unknown [facility] October 13, 2014 Unknown [facility] Mar 14, 2014 [facility] Jan 12, 2014 Refills [facility] September 08, 2014 Unknown [facility] September 07, 2014 Unknown [facility] May 30, 2013 Unknown [facility] August 30, 2013 Unknown [facility] May 03, 2015 Clearance [facility] July 02, 2015 Ref[facility] Jan 09, 2015 RX [facility] Jan 10, 2015 Refills [facility] October 30, 2014 Ref[facility] October 31, 2014 Unknown [facility] 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 May 03, 2015 Tobacco Use: . Smoking Status: never smoker May 03, 2015 Alcohol: no. 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
--- OUTSIDE RECORDS SUMMARY | 2018-12-14 05:51 | XMS REPORT ---
Author Author Percy Snow Organization eClinicalWorks Address Unknown Phone Unavailable Care Team Providers Care Rn Wound Care Name Role Phone Percy Snow CP Unavailable [...] [facility] [employer] [facility] 2016 [facility] October 17, [...] PA September 07, 2014 Unknown [facility] Mar 14, 2014 Unknown [facility] May 30, 2013 Unknown [facility] August 30, 2013 Unknown [facility] Nov 29, 2013 Unknown [facility] 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 October 18, 2015 Tobacco Use: . Smoking Status: never smoker October 18, 2015 Alcohol: no. 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
--- OUTSIDE RECORDS SUMMARY | 2018-12-14 05:51 | XMS REPORT ---
Author Author Percy Snow Organization eClinicalWorks Address Unknown Phone Unavailable Care Team Providers Care Intelligence Research Specialist Name Role Phone Percy Snow CP Unavailable Encounters Encounter Location Date Unknown [facility] October 13, 2014 Unknown [facility] May 30, 2013 Message [facility] Jan 10, 2016 Arterial results [facility] Jan 08, 2016 Unknown [facility] Jan 12, 2014 Unknown [facility] August 29, 2015 Unknown [facility] Mar 14, 2014 Unknown [facility] September 04, 2015 Unknown [facility] August 30, 2013 Unknown [facility] May 03, 2015 Unknown [facility] Nov 29, 2013 Clearance [facility] July 02, 2015 Refills [facility] Jan 09, 2015 RX [facility] Jan 10, 2015 Refills [facility] October 30, 2014 Refills [facility] October 31, 2014 [facility] 2015 [facility] October 17, [...] [facility] Dec 17, 2015 Echo [facility] Dec 21, 2015 Unknown [facility] Jan 07, 2016 Unknown [facility] November 14, 2015 FYI [facility] November 19, 2015 Labs [facility] November 20, 2015 [facility] [employer] [facility] [employer] [employer] 2016 [facility] Dec 03, 2015 Problems Problem Type Condition ICD-9 Code Onset Dates Condition Status Problem Rectal cancer 154.1 Active Problem 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 Problem Edema 782.3 Active Problem Claudication of lower extremity I73.9 Active Problem Heart failure, unspecified I50.9 Active Problem Cardiomyopathy I42.9 Active Problem Palpitations R00.2 Active Problem Essential (primary) hypertension I10 Active Problem Type 2 diabetes mellitus without complications E11.9 Active Problem Shortness of breath R06.02 Active Problem 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 Dec 25, 2015 Tobacco Use: . Smoking Status: never smoker Dec 25, 2015 Alcohol: no. 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
--- OUTSIDE RECORDS SUMMARY | 2018-12-14 05:51 | XMS REPORT | Summary of Care ---
Author Author [facility] Organization [facility] Address Unknown Phone Unavailable Encounter HQ Alan_[email or web address](FIN) [id number] Date(s): 02/15/18 - 02/15/18 [facility] [address], [place] [phone] [phone] Encounter Diagnosis Generalized abdominal pain (Final) - 02/19/18 Diaphragmatic hernia without obstruction or gangrene (Final) - Gastro-esophageal reflux disease without esophagitis (Final) - Discharge Disposition: Home or Self Care Attending Physician: Nathaniel Starkey MD Referring Physician: Niesha Truong Vital Signs No data available for this section Problem List Condition Effective Dates Status Health Status Informant CAD - Coronary Active artery disease(Confirmed) Diabetes Active mellitus(Confirmed) Knee Active replacement(Confirme d) Skin Active cancer(Confirmed) Allergies, Adverse Reactions, Alerts Substance Reaction Severity Status adhesive tape Active codeine Active aspirin Active Motrin Active Medications No data available for this section Results No data available for this section Immunizations Given and Recorded Vaccine Date Status Refusal Reason pneumococcal 23-valent vaccine 06/09/10 Given influenza virus vaccine, inactivated 01/07/10 Given Procedures No data available for this section Social History No data available for this section Assessment and Plan No data available for this section
--- OUTSIDE RECORDS SUMMARY | 2018-12-14 05:51 | XMS REPORT ---
Author Author Percy Snow Organization eClinicalWorks Address Unknown Phone Unavailable Care Team Providers Care General Merchandise Manager Name Role Phone Percy Snow CP Unavailable [...] [facility] October [facility], 2014 [facility] 2016 [facility] October 17, [...] [facility] November 20, 2015 Unknown [facility] 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 November 15, 2015 Tobacco Use: . Smoking Status: never smoker November 15, 2015 Alcohol: no. 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
--- OUTSIDE RECORDS SUMMARY | 2018-12-14 05:51 | XMS REPORT ---
Author Author Percy Snow Organization eClinicalWorks Address Unknown Phone Unavailable Care Team Providers Care Code And Test Clerk Name Role Phone Percy Snow CP Unavailable Encounters Encounter Location Date Unknown [facility] October 13, 2014 [facility] August 30, 2013 [facility] May 30, 2013 Arterial results [facility] Jan 08, 2016 [facility] Mar 14, 2014 Unknown [facility] August 29, 2015 Unknown [facility] September 04, 2015 [facility] Nov 29, 2013 Unknown [facility] May 03, 2015 [facility] 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 Dec 25, 2015 Tobacco Use: . Smoking Status: never smoker Dec 25, 2015 Alcohol: no. 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
--- OUTSIDE RECORDS SUMMARY | 2018-12-14 05:51 | XMS REPORT ---
Author Author Percy Snow Organization [employer] Address Unknown Phone Unavailable Care Team Providers Care Graphic Specialist Name Role Phone Percy Snow CP [...] 2014 Unknown [facility] Mar 14, 2014 Ref[facility] September 08, 2014 Unknown [facility] September 07, 2014 [facility] August 30, 2013 Unknown [facility] Nov 29, 2013 Unknown [facility] May 03, 2015 [facility] May 30, 2013 Ref[facility] Jan 09, 2015 RX [facility] Jan 10, 2015 Ref[facility] October 30, 2014 [facility] October 31, 2014 [facility] 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 Assessment Essential (primary) hypertension I10 Active Problem Hyperlipidemia 272.4 Active Problem 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 Active Assessment Palpitations R00.2 Active Problem Cardiac dysrhythmia, unspecified 427.9 Active Problem Diabetes mellitus type II 250.00 Active Problem Benign hypertension 401.1 Active Medications Medication Code System Code Instructions Start Date End Date Status Dosage temazepam MULTUM 02774 30 mg orally once a day (at bedtime) Active 1 cap(s) Levemir MULTUM 30090 100 units/mL subcutaneously Active 0 Humalin Unknown 0 70/30 Active as directed Vitamin D MULTUM 6150 1000 mg orally once a day Active 1 cap(s) clopidogrel MULTUM 97149 75 mg orally once a day May 11, 2012 Active 1 tab(s) Vitamin B6 MULTUM 4994 100 mg orally once a day Active 1 tab(s) Diovan MULTUM 8844 160 mg orally once a day Mar 27, 2014 Active 1 tab(s) ipratropium MULTUM 79445 500 mcg/2.5 mL by nebulizer prn Active 2 mL gabapentin MULTUM 41826 300 mg orally tid Active 1 cap(s) Centrum Silver Women's MULTUM 549203 Therapeutic Multiple Vitamins with Minerals orally once a day Active 1 tab(s) Synthroid MULTUM 2205 125 mcg orally once a day Active 1 tab(s) Metoprolol Tartrate MULTUM 1073 25 mg orally 2 times a day May 11, 2012 Active 1 tab(s) fluticasone nasal MULTUM 10608 50 mcg/inh intranasally once a day August 10, 2013 Active 1 spray(s) Advair Unknown 0 250/50 Diskus Active as directed lovastatin MULTUM 43381 20 mg orally once a day August 10, 2013 Active 1 tab(s) Klor-Con 8 MULTUM 3617 8 mEq orally daily May 11, 2012 Active 1 tab(s) NovoLog FlexPen MULTUM 09469 100 units/mL subcutaneously Active 0 Vitamin C MULTUM 1132 orally once a day Active 1 tab(s) furosemide MULTUM 51127 40 mg orally once a day August 03, 2013 Active 1 tab(s) Social History Social History Element Qualifiers Date Reported Caffeine: no. May 03, 2015 Tobacco Use: . Smoking Status: never smoker May 03, 2015 Alcohol: no. 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
--- OUTSIDE RECORDS SUMMARY | 2018-12-14 05:51 | XMS REPORT ---
Author Author Percy Snow Organization eClinical[employer] Address Unknown Phone Unavailable Care Team Providers Care Cyber Incident Responder Name Role Phone Percy Snow CP Unavailable Encounters Encounter Location Date Unknown [facility] October 13, 2014 Unknown [facility] Jan 12, 2014 [facility] Nov 29, 2013 [facility] August 30, 2013 Unknown [facility] August 29, 2015 Unknown [facility] September 04, 2015 [facility] Mar 14, 2014 Unknown [facility] May 03, 2015 [facility] July 02, 2015 Ref[facility] Jan 09, 2015 RX [facility] Jan 10, 2015 Ref[facility] October 30, 2014 Refills [facility] October 31, 2014 [facility] [employer] 2016 [facility] October 17, [...] [facility] Dec 21, 2015 [facility] 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 Dec 04, 2015 Tobacco Use: . Smoking Status: never smoker Dec 04, 2015 Alcohol: no. 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
--- OUTSIDE RECORDS SUMMARY | 2018-12-14 05:51 | XMS REPORT ---
Author Author Percy Snow Organization e[employer]Works Address Unknown Phone Unavailable Care Team Providers Care Financial Investment Adviser Name Role Phone Percy Snow CP Unavailable Encounters Encounter Location Date Unknown [facility] October 13, 2014 [facility] Nov 29, 2013 [facility] August 30, 2013 [facility] May 30, 2013 Unknown [facility] August 29, 2015 Unknown [facility] September 04, 2015 Unknown [facility] Jan 12, 2014 Unknown [facility] May 03, 2015 [facility] 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 Dec 25, 2015 Tobacco Use: . Smoking Status: never smoker Dec 25, 2015 Alcohol: no. 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
--- OUTSIDE RECORDS SUMMARY | 2018-12-14 05:51 | XMS REPORT ---
Author Author Percy Snow Organization [employer] Address Unknown Phone Unavailable Care Team Providers Care Tank Car Mechanic Name Role Phone Percy Snow CP Unavailable [...] 2013 [facility] August 30, 2013 Ref[facility] September 08, 2014 Unknown [facility] September 07, 2014 Unknown [facility] August 29, 2015 Unknown [facility] September 04, 2015 Unknown [facility] May 03, 2015 [facility]ance [facility] July 02, 2015 [facility] Jan 12, 2014 Refills [facility] Jan 09, 2015 [facility] Mar 14, 2014 RX [facility] Jan 10, 2015 Ref[facility] October 30, 2014 [facility] October 31, 2014 [facility] 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 May 03, 2015 Tobacco Use: . Smoking Status: never smoker May 03, 2015 Alcohol: no. 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
--- OUTSIDE RECORDS SUMMARY | 2018-12-14 05:51 | XMS REPORT ---
Author Author Percy Snow Organization eClinicalWorks Address Unknown Phone Unavailable Care Team Providers Care Typewriter Ribbon Winder Name Role Phone Percy Snow CP Unavailable [...] 2014 Unknown [facility] Nov 29, 2013 Ref[facility] September 08, 2014 Unknown [facility] September 07, 2014 Unknown [facility] August 29, 2015 Unknown [facility] May 30, 2013 Unknown [facility] May 03, 2015 [facility] July 02, 2015 Unknown [facility] Mar 14, 2014 Refills [facility] Jan 09, 2015 RX [facility] Jan 10, 2015 Refills [facility] October 30, 2014 Ref[facility] October 31, 2014 [facility] 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 May 03, 2015 Tobacco Use: . Smoking Status: never smoker May 03, 2015 Alcohol: no. 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
--- OUTSIDE RECORDS SUMMARY | 2018-12-14 05:51 | XMS REPORT ---
Author Author Percy Snow Organization eClinicalWorks Address Unknown Phone Unavailable Care Team Providers Care Care Provider Name Role Phone Percy Snow CP Unavailable [...] 2013 Unknown [facility] May 30, 2013 Ref[facility] September 08, 2014 Unknown [facility] September 07, 2014 Unknown [facility] August 29, 2015 Unknown [facility] September 04, 2015 Unknown [facility] May 03, 2015 Clearance [facility] July 02, 2015 [facility] Nov 29, 2013 Refills [facility] Jan 09, 2015 [facility] Jan 12, 2014 RX [facility] Jan 10, 2015 [facility] 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
--- OUTSIDE RECORDS SUMMARY | 2018-12-14 05:51 | XMS REPORT | Summary of Care ---
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 Problem List Condition Effective Dates Status Health Status Informant CAD - Coronary Active artery disease(Confirmed) Diabetes Active mellitus(Confirmed) Knee Active replacement(Confirme d) Skin Active cancer(Confirmed) Allergies, Adverse Reactions, Alerts Substance Reaction Severity Status adhesive tape Active aspirin Active codeine Active Motrin Active Medications No data available for this section Medications Administered During Your Visit No data available for this section Immunizations Vaccine Date Refusal Reason influenza virus vaccine, inactivated 01/07/10 pneumococcal 23-valent vaccine 06/09/10
--- OUTSIDE RECORDS SUMMARY | 2018-12-14 05:52 | XMS REPORT ---
Author Author Percy Snow Organization eClinicalWorks Address Unknown Phone Unavailable Care Team Providers Care Tester Waste Disposal Leakage Name Role Phone Percy Snow CP Unavailable Encounters Encounter Location Date Unknown [facility] October 13, 2014 Unknown [facility] Dec 04, 2015 Message [facility] Jan 10, 2016 Arterial results [facility] Jan 08, 2016 [facility] 2015 [facility] Jan 21, 2016 Unknown [facility] August 29, 2015 RE: BP's, D/C Acebutolol [facility] Jan 24, 2016 Unknown [facility] September 04, 2015 Unknown [facility] Dec 25, 2015 Unknown [facility] May 03, 2015 Message [facility] Jan 15, 2016 [facility] July 02, 2015 Arterial Study [facility] Feb 05, 2016 Refills [facility] Jan 09, 2015 RX [facility] Jan 10, 2015 RE: Bp's [facility] Jan 28, 2016 Ref[facility] October 30, 2014 B[facility] Jan 31, 2016 Refills [facility] October 31, [address] [facility] 2016 [facility] [...] [facility] October 18, 2015 [facility] May 30, 2013 Refills [facility] September 08, 2014 Refills [facility] Feb 05, 2016 Unknown [facility] September 07, 2014 Unknown [facility] Nov 29, 2013 [facility] August 30, 2013 [facility] Jan 12, 2014 Unknown [facility] November 15, 2015 [facility] 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 Jan 22, 2016 Tobacco Use: . Smoking Status: never smoker Jan 22, 2016 Alcohol: no. 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
--- OUTSIDE RECORDS SUMMARY | 2018-12-14 05:52 | XMS REPORT ---
Author Author Percy Snow Organization eClinicalWorks Address Unknown Phone Unavailable Care Team Providers Care X Ray Control Equipment Repairer Name Role Phone Percy Snow CP Unavailable [...] [facility] Jan 08, 2016 [facility] [employer] [facility] 2015 [facility] Jan 21, [...] [facility] October [facility], 2014 [facility] [email or web address] [facility] 2016 [facility] [...] [facility] October 18, 2015 Unknown [facility] Jan 22, 2016 Refills [facility] September 08, 2014 Refills [facility] Feb 05, 2016 Unknown [facility] September 07, 2014 [facility] August 30, 2013 [facility] May 30, 2013 Unknown [facility] Nov 29, 2013 Unknown [facility] November 15, 2015 [facility] Jan 12, 2014 wants to r/s echo please [facility] Dec 17, 2015 [facility] 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 Problem Edema 782.3 Active Problem Claudication of lower extremity I73.9 Active Assessment 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 Problem Heart failure, unspecified I50.9 Active Assessment Essential (primary) hypertension I10 Active Assessment Type 2 diabetes mellitus without complications E11.9 Active Problem Cardiomyopathy I42.9 Active Problem Palpitations R00.2 Active Problem Essential (primary) hypertension I10 Active Problem Type 2 diabetes mellitus without complications E11.9 Active Problem Shortness of breath R06.02 Active Problem 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 Active Problem Cardiac dysrhythmia, unspecified 427.9 Active Problem Diabetes mellitus type II 250.00 Active Problem Hyperlipidemia 272.4 Active Problem 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 Active Problem Cardiomyopathy NOS 425.4 Active Problem Benign hypertension 401.1 Active Problem Shortness of breath 786.05 Active Problem Hypertension 401.9 Active Problem 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 Active Medications Medication Code System Code Instructions Start Date End Date Status Dosage NovoLog FlexPen MULTUM 43380 100 units/mL subcutaneously bid Active 6units Vitamin C MULTUM 1132 1000 mg orally once a day Active 1 tab(s) levothyroxine MULTUM 26011 100 mcg (0.1 mg) orally once a day Active 1 tab(s) cilostazol MULTUM 47686 50 mg orally 2 times a day Jan 08, 2016 Active 1 tab(s) furosemide MULTUM 73746 40 mg orally QOD Dec 04, 2015 Active 1 tab(s) acebutolol MULTUM 10850 200 mg orally bid Active 1 cap(s) ipratropium MULTUM 23323 500 mcg/2.5 mL by nebulizer 4 times a day Active 2.5 mL lovastatin MULTUM 54911 20 mg orally once a day August 10, 2013 Active 1 tab(s) Vitamin B6 MULTUM 4994 100 mg orally once a day Active 1 tab(s) Oxygen Unknown 0 qhs Active Unknown Diovan MULTUM 8844 160 mg orally once a day Mar 27, 2014 Active 1 tab(s) biotin MULTUM 878924 4281 mcg orally once a day Active 1 tab(s) Levemir MULTUM 93656 100 units/mL subcutaneously qAM Active 20 units gabapentin MULTUM 56749 300 mg orally tid Active 1 cap(s) Amlodipine Besylate MULTUM 977838 10 mg orally once a day November 15, 2015 Active 1 tab(s) Advair Diskus MULTUM 19449 250 mcg-50 mcg inhaled 2 times a day Active 1 puff(s) aspirin MULTUM 18954 81 mg orally once a day Active 1 tab(s) Vitamin D3 MULTUM 4871 1000 intl units orally once a day Active 1 tab(s) Klor-Con M10 MULTUM 49714 10 mEq orally QOD Dec 04, 2015 Active 1 tab(s) Social History Social History Element Qualifiers Date Reported Caffeine: no. Jan 22, 2016 Tobacco Use: . Smoking Status: never smoker Jan 22, 2016 Alcohol: no. 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
--- OUTSIDE RECORDS SUMMARY | 2018-12-14 05:52 | XMS REPORT ---
Author Author Percy Snow Organization eClinicalWorks Address Unknown Phone Unavailable Care Team Providers Care Corn Breeder Name Role Phone Percy Snow CP Unavailable [...] PA Jan 08, 2016 Unknown [facility] August 30, 2013 [facility] August 29, 2015 Unknown [facility] Nov 29, 2013 [facility] September 04, 2015 Unknown [facility] Dec 25, 2015 [facility] May 03, 2015 Unknown [facility] May 30, 2013 Clearance [facility] July 02, 2015 Refills [facility] Jan 09, 2015 RX [facility] Jan 10, 2015 Unknown [facility] Jan 12, 2014 [facility] October 30, 2014 Unknown [facility] 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 Problem Edema 782.3 Active Problem Claudication of lower extremity I73.9 Active Assessment Cardiomyopathy I42.9 Active Problem Heart failure, unspecified I50.9 Active Assessment 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 Assessment Type 2 diabetes mellitus without [...] Hyperlipidemia 272.4 Active Problem 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 Active Problem Cardiomyopathy NOS 425.4 Active Problem Benign hypertension 401.1 Active Problem Shortness of breath 786.05 Active Problem Hypertension 401.9 Active Problem 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 Active Medications Medication Code System Code Instructions Start Date End Date Status Dosage Vitamin D3 MULTUM 4871 1000 intl units orally once a day Active 1 tab(s) Klor-Con M10 MULTUM 33566 10 mEq orally QOD Dec 04, 2015 Active 1 tab(s) levothyroxine MULTUM 79218 100 mcg (0.1 mg) orally once a day Active 1 tab(s) Humalin Unknown 0 70/30 Active as directed aspirin MULTUM 47409 81 mg orally once a day Active 1 tab(s) furosemide MULTUM 41618 40 mg orally QOD Dec 04, 2015 Active 1 tab(s) lovastatin MULTUM 95657 20 mg orally once a day August 10, 2013 Active 1 tab(s) temazepam MULTUM 68985 30 mg orally once a day (at bedtime) Active 1 cap(s) Levemir MULTUM 85512 100 units/mL subcutaneously qAM Active 20 units NovoLog FlexPen MULTUM 80439 100 units/mL subcutaneously bid Active 6units Vitamin C MULTUM 1132 1000 mg orally once a day Active 1 tab(s) Centrum Silver Women's MULTUM 455751 Therapeutic Multiple Vitamins with Minerals orally once a day Active 1 tab(s) Diovan MULTUM 8844 160 mg orally once a day Mar 27, 2014 Active 1 tab(s) Amlodipine Besylate MULTUM 073668 10 mg orally once a day November 15, 2015 Active 1 tab(s) biotin MULTUM 865283 7952 mcg orally once a day Active 1 tab(s) gabapentin MULTUM 96753 300 mg orally tid Active 1 cap(s) Social History Social History Element Qualifiers Date Reported Caffeine: no. Dec 25, 2015 Tobacco Use: . Smoking Status: never smoker Dec 25, 2015 Alcohol: no. 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
--- OUTSIDE RECORDS SUMMARY | 2018-12-14 05:52 | XMS REPORT ---
Author Author Percy Snow Organization [employer] Address Unknown Phone Unavailable Care Team Providers Care Accounts Payable Administrator Name Role Phone Percy Snow CP Unavailable Encounters Encounter Location Date Unknown [facility] October 13, 2014 Unknown [facility] Dec 04, 2015 Message [facility] Jan 10, 2016 Arterial results [facility] Jan 08, 2016 [facility] 2015 [facility] [place] Jan 21, [...] [facility] [place] October 31, 2014 [facility] 2016 [facility] [place] October 17, [...] 2014 Unknown [facility] May 30, 2013 [facility] 2016 [facility] [place] Apr 17, 2016 Unknown [facility] August 30, 2013 Unknown [facility] November 15, 2015 Unknown [facility] Nov 29, 2013 wants to r/s echo please [facility] Dec 17, 2015 Unknown [facility] Jan 12, 2014 Echo [facility] Dec 21, 2015 Unknown [facility] 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 Jan 22, 2016 Tobacco Use: . Smoking Status: never smoker Jan 22, 2016 Alcohol: no. 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
--- OUTSIDE RECORDS SUMMARY | 2018-12-14 05:52 | XMS REPORT ---
Author Author Percy Snow Organization e[employer] Address Unknown Phone Unavailable Care Team Providers Care Landscape Artist Name Role Phone Percy Snow CP Unavailable Encounters Encounter Location Date Unknown [facility] October 13, 2014 Unknown [facility] Dec 04, 2015 Message [facility] Jan 10, 2016 Arterial results [facility] [place] Jan 08, 2016 [facility] [...] [place] July 02, 2015 Unknown [facility] August 30, 2013 Refills [facility] [place] Jan 09, 2015 RX [facility] Jan 10, 2015 RE: Bp's [facility] Jan 28, 2016 Refills [facility] [place] October 30, 2014 Unknown [facility] May 30, 2013 Refills [facility] [place] October 31, 2014 [facility] 2016 [facility] October [...] [place] October 18, 2015 Unknown [facility] Jan 12, 2014 Refills [facility] [place] September 08, 2014 Unknown [facility] 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 Jan 22, 2016 Tobacco Use: . Smoking Status: never smoker Jan 22, 2016 Alcohol: no. 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
--- OUTSIDE RECORDS SUMMARY | 2018-12-14 05:52 | XMS REPORT ---
Author Author Percy Snow Organization eClinicalWorks Address Unknown Phone Unavailable Care Team Providers Care Branding Machine Tender Name Role Phone Percy Snow CP Unavailable Encounters Encounter Location Date Unknown [facility] October 13, 2014 Unknown [facility] Dec 04, 2015 Message [facility] Jan 10, 2016 Arterial results [facility] Jan 08, 2016 [facility] [employer] [facility] 2015 [facility] [place] Jan 21, [...] [facility] [place] October 31, 2014 [facility] [employer] [facility] 2016 [facility] October 17, [...] PA October 18, 2015 Unknown [facility] August 30, 2013 Refills [facility] [place] September 08, 2014 Unknown [facility] May 30, 2013 Unknown [facility] [place] September 07, 2014 Unknown [facility] Jan 12, 2014 Unknown [facility] Nov 29, 2013 Unknown [facility] 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 Jan 22, 2016 Tobacco Use: . Smoking Status: never smoker Jan 22, 2016 Alcohol: no. 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
--- OUTSIDE RECORDS SUMMARY | 2018-12-14 05:52 | XMS REPORT ---
Author Author Percy Snow Organization eClinicalWorks Address Unknown Phone Unavailable Care Team Providers Care Baseball Scout Name Role Phone Percy Snow CP Unavailable Encounters Encounter Location Date Unknown [facility] October 13, 2014 Unknown [facility] Dec 04, 2015 Message [facility] Jan 10, 2016 Arterial results [facility] Jan 08, 2016 [facility] [employer] [facility] 2015 [facility] [place] Jan 21, [...] [facility] [place] October 31, 2014 [facility] [employer] [facility] 2016 [facility] [place] October 17, [...] Care PA November 20, 2015 [facility] 2016 [facility] [place] Dec 03, [...] Hyperlipidemia 272.4 Active Problem 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 Jan 22, 2016 Tobacco Use: . Smoking Status: never smoker Jan 22, 2016 Alcohol: no. 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
--- OUTSIDE RECORDS SUMMARY | 2018-12-14 05:52 | XMS REPORT ---
Author Author Percy Snow Organization eClinicalWorks Address Unknown Phone Unavailable Care Team Providers Care Race Car Driver Name Role Phone Percy Snow CP Unavailable Encounters Encounter Location Date Unknown [facility] October 13, 2014 Unknown [facility] Dec 04, 2015 Message [facility] Jan 10, 2016 Arterial results [facility] Jan 08, 2016 Unknown [facility] May 30, 2013 Unknown [facility] [place] August 29, 2015 Unknown [facility] August 30, 2013 [...] PA Jan 10, 2015 Unknown [facility] Nov 29, 2013 Refills [facility] October 30, 2014 Unknown [facility] 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 Dec 25, 2015 Tobacco Use: . Smoking Status: never smoker Dec 25, 2015 Alcohol: no. 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
--- OUTSIDE RECORDS SUMMARY | 2018-12-14 05:52 | XMS REPORT ---
Author Author Percy Snow Organization eClinicalWorks Address Unknown Phone Unavailable Care Team Providers Care Treating And Pumping Supervisor Name Role Phone Percy Snow CP Unavailable Encounters Encounter Location Date Unknown [facility] October 13, 2014 Unknown [facility] Dec 04, 2015 Message [facility] Jan 10, 2016 Arterial results [facility] Jan 08, 2016 [facility] [place] Jan 21, [...] [place] Jan 10, 2015 Unknown [facility] May 30, 2013 Refills [facility] [place] October 30, 2014 Unknown [facility] August 30, 2013 Refills [facility] [place] October 31, 2014 [facility] [employer] [facility] 2016 [facility] [place] October 17, [...] [place] October 18, 2015 Unknown [facility] Mar 14, 2014 Refills [facility] [place] September 08, 2014 Unknown [facility] 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 Jan 22, 2016 Tobacco Use: . Smoking Status: never smoker Jan 22, 2016 Alcohol: no. 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
--- OUTSIDE RECORDS SUMMARY | 2018-12-14 05:52 | XMS REPORT ---
Author Author Percy Snow Organization eClinicalWorks Address Unknown Phone Unavailable Care Team Providers Care Coat Hanger Shaper Machine Operator Name Role Phone Percy Snow CP Unavailable [...] PA Jan 08, 2016 Unknown [facility] Nov 29, 2013 Unknown [facility] August 29, 2015 Unknown [facility] Jan 12, 2014 Unknown [facility] September 04, 2015 Unknown [facility] May 30, 2013 Unknown [facility] [place] May 03, 2015 Unknown [facility] 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 Assessment Type 2 diabetes mellitus without complications E11.9 Active Problem Claudication of lower extremity I73.9 Active Problem Essential (primary) hypertension I10 Active Problem 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 Problem Shortness of breath R06.02 Active Problem Palpitations R00.2 Active Problem Hyperlipidemia 272.4 Active Problem 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 Active Assessment Shortness of breath R06.02 Active Problem Diabetes mellitus type II 250.00 Active Problem Hypertension 401.9 Active Problem 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 Active Problem Cardiac dysrhythmia, unspecified 427.9 Active Problem Cardiomyopathy NOS 425.4 Active Assessment Claudication of lower extremity I73.9 Active Problem Benign hypertension 401.1 Active Problem Shortness of breath 786.05 Active Medications Medication Code System Code Instructions Start Date End Date Status Dosage temazepam MULTUM 80937 30 mg orally once a day (at bedtime) Active 1 cap(s) aspirin MULTUM 47309 81 mg orally once a day Active 1 tab(s) Centrum Silver Women's MULTUM 644641 Therapeutic Multiple Vitamins with Minerals orally once a day Active 1 tab(s) Vitamin C MULTUM 1132 1000 mg orally once a day Active 1 tab(s) Humalin Unknown 0 70/30 Active as directed Klor-Con M10 MULTUM 36087 10 mEq orally QOD Dec 04, 2015 Active 1 tab(s) NovoLog FlexPen MULTUM 86524 100 units/mL subcutaneously bid Active 6units lovastatin MULTUM 56104 20 mg orally once a day August 10, 2013 Active 1 tab(s) Vitamin D3 MULTUM 4871 1000 intl units orally once a day Active 1 tab(s) gabapentin MULTUM 35658 300 mg orally tid Active 1 cap(s) Diovan MULTUM 8844 160 mg orally once a day Mar 27, 2014 Active 1 tab(s) furosemide MULTUM 91713 40 mg orally QOD Dec 04, 2015 Active 1 tab(s) Amlodipine Besylate MULTUM 552394 10 mg orally once a day November 15, 2015 Active 1 tab(s) Levemir MULTUM 84421 100 units/mL subcutaneously qAM Active 20 units levothyroxine MULTUM 33430 100 mcg (0.1 mg) orally once a day Active 1 tab(s) hydralazine MULTUM 70237 25 mg orally PRN for systolic >160 Active 1 tab(s) biotin MULTUM 562085 2958 mcg orally once a day Active 1 tab(s) Social History Social History Element Qualifiers Date Reported Caffeine: no. Dec 25, 2015 Tobacco Use: . Smoking Status: never smoker Dec 25, 2015 Alcohol: no. 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
--- OUTSIDE RECORDS SUMMARY | 2018-12-14 05:52 | XMS REPORT ---
Author Author Percy Snow Organization eClinicalWorks Address Unknown Phone Unavailable Care Team Providers Care Director Of Residential Services Name Role Phone Percy Snow CP Unavailable Encounters Encounter Location Date Unknown [facility] October 13, 2014 Unknown [facility] Dec 04, 2015 Message [facility] Jan 10, 2016 Arterial results [facility] Jan 08, [facility] [employer] 2015 [facility] Jan [...] PA Jan 10, 2015 Unknown [facility] August 30, 2013 Refills [facility] October 30, 2014 Unknown [facility] Nov 29, 2013 Refills [facility] October 31, 2014 [facility] [employer] [facility] 2015 [facility] October 17, [...] PA September 08, 2014 Unknown [facility] 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 Dec 25, 2015 Tobacco Use: . Smoking Status: never smoker Dec 25, 2015 Alcohol: no. 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
--- OUTSIDE RECORDS SUMMARY | 2018-12-14 05:53 | XMS REPORT ---
Author Author [facility] Address Unknown Phone Unavailable Care Team Providers Care Rubber Liner Name Role Phone MARJORIE, CLAUDIO COOPER DORIE Unavailable Unavailable RUSSELL YA Unavailable Unavailable Problems This patient has no known problems. Allergies, Adverse Reactions, Alerts This patient has no known allergies or adverse reactions. Medications This patient has no known medications. Results Test Description Test Time Test Comments Text Results Atomic Results Result Comments POCT-GLUCOSE METER 2018-08-26 20:08:00 POC-GLUCOSE METER (BEAKER) (test okpw=3281) 339 mg/dL 70-110 TESTED AT [facility] [address] [address] RAD, CHEST, 1 VIEW, NON [id number] 07:57:00Reason for exam:->PneumoniaShould this be performed at the bedside?->YesFINAL REPORT CHEST AP PORTABLE ERECT Comparison exam: 08/24/2018 History provided: Pneumonia Heart size magnified by projection. Lungs grossly free of acute disease and vascularity normal. Signed: Briana Gupta Verified Date/Time: 08/26/2018 07:57:26 Reading Location: [facility] Diagnostic Imaging Reading Room - [place] [address].12 REHENSIVE METABOLIC [id number] 06:50:00* Test Item Value Reference Range Comments TOTAL PROTEIN (BEAKER) (test cmdx=292) 6.5 gm/dL 6.0-8.5 ALBUMIN (BEAKER) (test uhaf=1274) 3.7 g/dL 3.5-5.0 ALKALINE PHOSPHATASE (BEAKER) (test vqyt=731) 50 U/L 30-115 BILIRUBIN TOTAL (BEAKER) (test xqsn=853) 0.4 mg/dL 0.1-1.2 SODIUM (BEAKER) (test oidr=837) 135 meq/L 135-148 POTASSIUM (BEAKER) (test rqaw=511) 3.6 meq/L 3.6-5.5 CHLORIDE (BEAKER) (test ielk=889) 97 meq/L 98-106 CO2 (BEAKER) (test uzvb=889) 28 meq/L 20-29 BLOOD UREA NITROGEN (BEAKER) (test xhee=300) 39 mg/dL 10-26 CREATININE (BEAKER) (test awqd=330) 1.30 mg/dL 0.50-1.20 GLUCOSE RANDOM (BEAKER) (test nfux=642) 245 mg/dL 70-110 CALCIUM (BEAKER) (test pgxm=168) 9.2 mg/dL 8.5-10.5 AST (SGOT) (BEAKER) (test ulzh=440) 15 U/L 5-40 ALT (SGPT) (BEAKER) (test snyt=909) 21 U/L 5-50 EGFR (BEAKER) (test ndrb=4201) 39 mL/min/1.73 sq m ESTIMATED GFR IS NOT ACCURATE CREATININE CLEARANCE IN PREDICTING GLOMERULAR FILTRATION RATE. ESTIMATED GFR IS NOT APPLICABLE FOR DIALYSIS PATIENTS. BASIC METABOLIC [id number] 06:50:00* Test Item Value Reference Range Comments SODIUM (BEAKER) (test etot=145) 135 meq/L 135-148 POTASSIUM (BEAKER) (test aidq=353) 3.6 meq/L 3.6-5.5 CHLORIDE (BEAKER) (test kzuq=623) 97 meq/L 98-106 CO2 (BEAKER) (test keys=071) 28 meq/L 20-29 BLOOD UREA NITROGEN (BEAKER) (test obnz=228) 39 mg/dL 10-26 CREATININE (BEAKER) (test hkez=337) 1.30 mg/dL 0.50-1.20 GLUCOSE RANDOM (BEAKER) (test hxub=328) 245 mg/dL 70-110 CALCIUM (BEAKER) (test tzej=214) 9.2 mg/dL 8.5-10.5 EGFR (BEAKER) (test nsyu=0426) 39 mL/min/1.73 sq m ESTIMATED GFR IS NOT ACCURATE CREATININE CLEARANCE IN PREDICTING GLOMERULAR FILTRATION RATE. ESTIMATED GFR IS NOT APPLICABLE FOR DIALYSIS PATIENTS. CBC W/PLT COUNT & AUTO [id number] 06:33:00* Test Item Value Reference Range Comments WHITE BLOOD CELL COUNT (BEAKER) (test llid=334) 16.8 K/ L 4.0-10.0 RED BLOOD CELL COUNT (BEAKER) (test eesr=485) 4.00 M/ L 4.00-5.00 HEMOGLOBIN (BEAKER) (test lica=598) 11.9 GM/DL 12.0-15.5 HEMATOCRIT (BEAKER) (test dmnw=285) 35.4 % 36.0-46.0 MEAN CORPUSCULAR VOLUME (BEAKER) (test tayv=446) 88.5 fL 82.0-99.0 MEAN CORPUSCULAR HEMOGLOBIN (BEAKER) (test ohbz=393) 29.8 pg 27.0-33.0 MEAN CORPUSCULAR HEMOGLOBIN CONC (BEAKER) (test rrrn=262) 33.6 GM/DL 32.0-36.0 RED CELL DISTRIBUTION WIDTH (BEAKER) (test xguc=050) 12.3 % 12.0-15.0 PLATELET COUNT (BEAKER) (test uocy=336) 214 K/CU MM 150-430 MEAN PLATELET VOLUME (BEAKER) (test znhb=081) 9.2 fL 6.0-11.5 NUCLEATED RED BLOOD CELLS (BEAKER) (test dktr=744) 0 /100 WBC 0-0 NEUTROPHILS RELATIVE PERCENT (BEAKER) (test pgjn=310) 85 % LYMPHOCYTES RELATIVE PERCENT (BEAKER) (test uurt=429) 6 % MONOCYTES RELATIVE PERCENT (BEAKER) (test hohe=898) 8 % EOSINOPHILS RELATIVE PERCENT (BEAKER) (test tbhe=114) 0 % BASOPHILS RELATIVE PERCENT (BEAKER) (test ynvh=860) 0 % NEUTROPHILS ABSOLUTE COUNT (BEAKER) (test epdd=775) 14.20 K/ L 1.80-8.00 LYMPHOCYTES ABSOLUTE COUNT (BEAKER) (test gfxy=620) 1.07 K/ L 1.48-4.50 MONOCYTES ABSOLUTE COUNT (BEAKER) (test twol=974) 1.35 K/ L 0.00-1.30 EOSINOPHILS ABSOLUTE COUNT (BEAKER) (test svbd=110) 0.01 K/ L 0.00-0.50 BASOPHILS ABSOLUTE COUNT (BEAKER) (test jtlm=195) 0.01 K/ L 0.00-0.20 IMMATURE GRANULOCYTES-RELATIVE PERCENT (BEAKER) (test vihz=4446) 1 % 0-0 POCT-GLUCOSE [id number] 05:47:00* Test Item Value Reference Range Comments POC-GLUCOSE METER (BEAKER) (test hskv=5936) 242 mg/dL 70-110 TESTED AT [facility] [address] [place] [address] POCT-GLUCOSE [id number] 02:45:00* Test Item Value Reference Range Comments POC-GLUCOSE METER (BEAKER) (test zfzs=2499) 323 mg/dL 70-110 TESTED AT [facility] [address] [place] [address] POCT-GLUCOSE [id number] 20:11:00* Test Item Value Reference Range Comments POC-GLUCOSE METER (BEAKER) (test tsif=0403) 318 mg/dL 70-110 TESTED AT [facility] [address] [place] [address] VANCOMYCIN LEVEL, [id number] 19:48:00* Test Item Value Reference Range Comments VANCOMYCIN TROUGH (BEAKER) (test fsap=089) 22.0 ug/mL 10.0-20.0 POCT-GLUCOSE [id number] 13:01:00* Test Item Value Reference Range Comments POC-GLUCOSE METER (BEAKER) (test cuqh=8338) 305 mg/dL 70-110 Will Repeat Test/TESTED AT [facility] [address] [place] [address] B-TYPE NATRIURETIC FACTOR (BNP)2018-08-25 07:08:00* Test Item Value Reference Range Comments B-TYPE NATRIURETIC PEPTIDE (BEAKER) (test mzmt=991) 382 pg/mL 0-100 POCT-GLUCOSE [id number] 06:48:00* Test Item Value Reference Range Comments POC-GLUCOSE METER (BEAKER) (test sqkq=4031) 268 mg/dL 70-110 TESTED AT [facility] [place] [address] POCT-GLUCOSE [id number] 20:52:00* Test Item Value Reference Range Comments POC-GLUCOSE METER (BEAKER) (test qmgn=4188) 319 mg/dL 70-110 Notified CONNOR PRATER/TESTED AT [facility] [address] [place] [address] POCT-GLUCOSE [id number] 16:55:00* Test Item Value Reference Range Comments POC-GLUCOSE METER (BEAKER) (test rxlz=0203) 307 mg/dL 70-110 Notified RN or MD Patient refused repeat test/TESTED AT [facility] [address] [address] POCT-GLUCOSE [id number] 12:01:00* Test Item Value Reference Range Comments POC-GLUCOSE METER (BEAKER) (test bzii=3288) 347 mg/dL 70-110 TESTED AT [facility] [address] [address] BLOOD [id number] 12:00:00* Test Item Value Reference Range Comments CULTURE (BEAKER) (test vydc=3018) No growth in 5 days BLOOD [id number] 12:00:00* Test Item Value Reference Range Comments CULTURE (BEAKER) (test aosn=9700) No growth in 5 days CBC W/PLT COUNT & AUTO [id number] 07:57:00* Test Item Value Reference Range Comments WHITE BLOOD CELL COUNT (BEAKER) (test hmsk=582) 13.7 K/ L 4.0-10.0 RED BLOOD CELL COUNT (BEAKER) (test oxnx=903) 4.37 M/ L 4.00-5.00 HEMOGLOBIN (BEAKER) (test jlbx=626) 12.9 GM/DL 12.0-15.5 HEMATOCRIT (BEAKER) (test iuiw=280) 39.7 % 36.0-46.0 MEAN CORPUSCULAR VOLUME (BEAKER) (test fsrl=935) 90.8 fL 82.0-99.0 MEAN CORPUSCULAR HEMOGLOBIN (BEAKER) (test plvy=629) 29.5 pg 27.0-33.0 MEAN CORPUSCULAR HEMOGLOBIN CONC (BEAKER) (test kthx=085) 32.5 GM/DL 32.0-36.0 RED CELL DISTRIBUTION WIDTH (BEAKER) (test rwum=862) 12.3 % 12.0-15.0 PLATELET COUNT (BEAKER) (test xycg=581) 261 K/CU MM 150-430 MEAN PLATELET VOLUME (BEAKER) (test cbwh=860) 9.1 fL 6.0-11.5 NUCLEATED RED BLOOD CELLS (BEAKER) (test fyhh=577) 0 /100 WBC 0-0 (MANUAL DIFFERENTIAL)2018-08-24 07:57:00* Test Item Value Reference Range Comments NEUTROPHILS - REL (DIFF) (BEAKER) (test jeec=0129) 94 % LYMPHOCYTES - REL (DIFF) (BEAKER) (test wpjy=3452) 4 % MONOCYTES - REL (DIFF) (BEAKER) (test pbct=3470) 1 % EOSINOPHILS - REL (DIFF) (BEAKER) (test ursz=0746) 0 % BASOPHILS - REL (DIFF) (BEAKER) (test xnqc=7761) 0 % BANDS - REL (DIFF) (BEAKER) (test qpoq=9415) 1 % 0-10 NEUTROPHILS - ABS (DIFF) (BEAKER) (test kfcq=5427) 12.88 K/ L 1.80-8.00 LYMPHOCYTES - ABS (DIFF) (BEAKER) (test newy=6270) 0.55 K/ L 1.48-4.50 MONOCYTES - ABS (DIFF) (BEAKER) (test rbwh=1442) 0.14 K/ L 0.00-1.30 EOSINOPHILS - ABS (DIFF) (BEAKER) (test rogi=5914) 0.00 K/ L 0.00-0.50 BASOPHILS - ABS (DIFF) (BEAKER) (test ywlf=4937) 0.00 K/ L 0.00-0.20 BANDS-ABS (DIFF) (BEAKER) (test qmtf=5385) 0.1 K/ L 0.0-0.8 TOTAL COUNTED (BEAKER) (test uzug=9514) 100 BANDS + SEGMENTED NEUTROPHILS (BEAKER) (test ldhh=9635) 13.02 WBC MORPHOLOGY (BEAKER) (test eyco=295) Normal PLT MORPHOLOGY (BEAKER) (test mhyl=833) Normal RBC MORPHOLOGY (BEAKER) (test osue=203) Normal B-TYPE NATRIURETIC FACTOR (BNP)2018-08-24 07:06:00* Test Item Value Reference Range Comments B-TYPE NATRIURETIC PEPTIDE (BEAKER) (test bkqy=452) 580 pg/mL 0-100 BASIC METABOLIC [id number] 07:05:00* Test Item Value Reference Range Comments SODIUM (BEAKER) (test diew=534) 135 meq/L 135-148 POTASSIUM (BEAKER) (test snwd=761) 3.9 meq/L 3.6-5.5 CHLORIDE (BEAKER) (test jmqp=437) 93 meq/L 98-106 CO2 (BEAKER) (test ipgb=290) 30 meq/L 20-29 BLOOD UREA NITROGEN (BEAKER) (test jmsl=949) 34 mg/dL 10-26 CREATININE (BEAKER) (test jjwd=939) 1.24 mg/dL 0.50-1.20 GLUCOSE RANDOM (BEAKER) (test kmal=857) 271 mg/dL 70-110 CALCIUM (BEAKER) (test vdgx=915) 9.4 mg/dL 8.5-10.5 EGFR (BEAKER) (test jynb=4474) 41 mL/min/1.73 sq m ESTIMATED GFR IS NOT ACCURATE CREATININE CLEARANCE IN PREDICTING GLOMERULAR FILTRATION RATE. ESTIMATED GFR IS NOT APPLICABLE FOR DIALYSIS PATIENTS. POCT-GLUCOSE [id number] 06:32:00* Test Item Value Reference Range Comments POC-GLUCOSE METER (MARCO) (test pyco=0678) 233 mg/dL 70-110 TESTED AT [facility] [place] [address] RAD, CHEST, 1 VIEW, NON [id number] 06:28:00Reason for exam:->PneumoniaShould this be performed at the bedside?->YesFINAL REPORT RAD, CHEST, 1 VIEW, NON DEPT INDICATION: Pneumonia COMPARISON: Prior day's exam FINDINGS: Portable frontal view of the chest. IMPRESSION: Support Lines: NG tube has been removed Lungs and pleura: Lungs are predominantly clear. Bilateral interstitial thickening. Prominent pericardial fat pad obscures the left CP angle. No pneumothorax.Heart and mediastinum: Stable contours. Additional findings: None. Signed: April Zacariaseport Verified Date/Time: 08/24/2018 06:28:05 Reading Location: [facility] Neuro Reading Room -GLUCOSE [id number] 20:41:00* Test Item Value Reference Range Comments POC-GLUCOSE METER (BEMICKIE) (test nlgi=6167) 328 mg/dL 70-110 Notified [facility] PRATER/TESTED AT [facility] [place] [address] VANCOMYCIN LEVEL, [id number] 16:46:00* Test Item Value Reference Range Comments VANCOMYCIN TROUGH (BEMICKIE) (test cubl=834) 18.2 ug/mL 10.0-20.0 POCT-GLUCOSE [id number] 11:58:00* Test Item Value Reference Range Comments POC-GLUCOSE METER (BEAKER) (test owjq=8156) 176 mg/dL 70-110 TESTED AT [facility] [place] [address] RAD, ABDOMEN/KUB, 1 VIEW [id number] 08:21:00Reason for exam:->ileusFINAL REPORT Comparison: 08/21/2018 TECHNIQUE: Frontal images of the abdomen FINDINGS: Bowel gas pattern is nonspecific. No gross free int raperitoneal air. Tip of nasogastric projects in distal stomach. Electrical gene rator projects over the right abdomen. No acute skeletal abnormality. Signed: Emile Cedeño Verified Date/Time: 08/23/2018 08:21:00 Reading Location: [facility] Radiology Reading Room , CHEST, PA OR AP, 1 [id number] 07:32:00Reason for exam:->pnaFINAL REPORT AP view of the chest dated 08/23/2018 CLINICAL INFORMATION: pna Comment: Heart is enlarged. Pulmonary vasculature is unremarkable. Previously noted. Interstitial pulmonary disease in the right lower lobe has resolved. Lungs are clear. No pulmonary infiltrate or pleural effusion is present. There is interval placement of nasogastric tube. Signed: Abdullahi Salas Verified Date/Time: 08/23/2018 07:32:25 Reading Location: [facility] Radiology Reading Room -GLUCOSE [id number] 06:38:00 * Test Item Value Reference Range Comments POC-GLUCOSE METER (BEAKER) (test xxbr=6074) 156 mg/dL 70-110 TESTED AT [facility] [place] [address] B-TYPE NATRIURETIC FACTOR (BNP)2018-08-23 04:57:00* Test Item Value Reference Range Comments B-TYPE NATRIURETIC PEPTIDE (BEAKER) (test lrhy=105) 812 pg/mL 0-100 BASIC METABOLIC [id number] 04:47:00* Test Item Value Reference Range Comments SODIUM (BEAKER) (test oqzg=180) 143 meq/L 135-148 POTASSIUM (BEAKER) (test scco=741) 3.4 meq/L 3.6-5.5 CHLORIDE (BEAKER) (test fxky=279) 99 meq/L 98-106 CO2 (BEAKER) (test smgy=644) 34 meq/L 20-29 BLOOD UREA NITROGEN (BEAKER) (test mihf=533) 31 mg/dL 10-26 CREATININE (BEAKER) (test gpxy=639) 1.14 mg/dL 0.50-1.20 GLUCOSE RANDOM (BEAKER) (test itnf=140) 172 mg/dL 70-110 CALCIUM (BEAKER) (test xnps=282) 9.2 mg/dL 8.5-10.5 EGFR (BEAKER) (test hrvo=6696) 45 mL/min/1.73 sq m ESTIMATED GFR IS NOT ACCURATE CREATININE CLEARANCE IN PREDICTING GLOMERULAR FILTRATION RATE. ESTIMATED GFR IS NOT APPLICABLE FOR DIALYSIS PATIENTS. CBC W/PLT COUNT & AUTO [id number] 04:25:00* Test Item Value Reference Range Comments WHITE BLOOD CELL COUNT (BEAKER) (test guyf=819) 12.2 K/ L 4.0-10.0 RED BLOOD CELL COUNT (BEAKER) (test wenj=438) 4.04 M/ L 4.00-5.00 HEMOGLOBIN (BEAKER) (test mhqb=667) 12.0 GM/DL 12.0-15.5 HEMATOCRIT (BEAKER) (test ydhr=731) 37.0 % 36.0-46.0 MEAN CORPUSCULAR VOLUME (BEAKER) (test quib=902) 91.6 fL 82.0-99.0 MEAN CORPUSCULAR HEMOGLOBIN (BEAKER) (test gfuq=429) 29.7 pg 27.0-33.0 MEAN CORPUSCULAR HEMOGLOBIN CONC (BEAKER) (test tasc=826) 32.4 GM/DL 32.0-36.0 RED CELL DISTRIBUTION WIDTH (BEAKER) (test cbos=727) 12.6 % 12.0-15.0 PLATELET COUNT (BEAKER) (test ywgs=020) 221 K/CU MM 150-430 MEAN PLATELET VOLUME (BEAKER) (test odnm=424) 8.7 fL 6.0-11.5 NUCLEATED RED BLOOD CELLS (BEAKER) (test etvj=184) 0 /100 WBC 0-0 NEUTROPHILS RELATIVE PERCENT (BEAKER) (test geko=945) 82 % LYMPHOCYTES RELATIVE PERCENT (BEAKER) (test vmet=414) 8 % MONOCYTES RELATIVE PERCENT (BEAKER) (test xrig=369) 10 % EOSINOPHILS RELATIVE PERCENT (BEAKER) (test egjo=464) 0 % BASOPHILS RELATIVE PERCENT (BEAKER) (test ezhc=121) 0 % NEUTROPHILS ABSOLUTE COUNT (BEAKER) (test uwlt=802) 10.02 K/ L 1.80-8.00 LYMPHOCYTES ABSOLUTE COUNT (BEAKER) (test qkts=428) 0.92 K/ L 1.48-4.50 MONOCYTES ABSOLUTE COUNT (BEAKER) (test hhgy=171) 1.19 K/ L 0.00-1.30 EOSINOPHILS ABSOLUTE COUNT (BEAKER) (test rxiq=894) 0.00 K/ L 0.00-0.50 BASOPHILS ABSOLUTE COUNT (BEAKER) (test zlmu=629) 0.00 K/ L 0.00-0.20 IMMATURE GRANULOCYTES-RELATIVE PERCENT (BEAKER) (test zivu=6910) 1 % 0-0 POCT-GLUCOSE [id number] 20:17:00* Test Item Value Reference Range Comments POC-GLUCOSE METER (BEAKER) (test uzdp=3668) 227 mg/dL 70-110 TESTED AT [facility] [place] [place] [address] POCT-GLUCOSE [id number] 11:56:00* Test Item Value Reference Range Comments POC-GLUCOSE METER (BEAKER) (test obcu=4570) 235 mg/dL 70-110 TESTED AT [facility] [place] [place] [address] B-TYPE NATRIURETIC FACTOR (BNP)2018-08-22 06:21:00* Test Item Value Reference Range Comments B-TYPE NATRIURETIC PEPTIDE (BEAKER) (test ljqe=183) 973 pg/mL 0-100 BASIC METABOLIC [id number] 06:16:00* Test Item Value Reference Range Comments SODIUM (BEAKER) (test ehxr=457) 136 meq/L 135-148 POTASSIUM (BEAKER) (test extp=864) 3.8 meq/L 3.6-5.5 Specimen slightly hemolyzed CHLORIDE (BEAKER) (test cdsk=740) 97 meq/L 98-106 CO2 (BEAKER) (test tnnh=474) 28 meq/L 20-29 BLOOD UREA NITROGEN (BEAKER) (test gkuw=156) 33 mg/dL 10-26 CREATININE (BEAKER) (test yqds=089) 1.31 mg/dL 0.50-1.20 Specimen slightly hemolyzed GLUCOSE RANDOM (BEAKER) (test owyl=813) 234 mg/dL 70-110 CALCIUM (BEAKER) (test wvxy=969) 9.0 mg/dL 8.5-10.5 EGFR (BEAKER) (test sjmm=0223) 38 mL/min/1.73 sq m ESTIMATED GFR IS NOT ACCURATE CREATININE CLEARANCE IN PREDICTING GLOMERULAR FILTRATION RATE. ESTIMATED GFR IS NOT APPLICABLE FOR DIALYSIS PATIENTS. POCT-GLUCOSE [id number] 22:49:00* Test Item Value Reference Range Comments POC-GLUCOSE METER (BEAKER) (test gtmm=9229) 241 mg/dL 70-110 TESTED AT [facility] [address] [address] [id number] 20:55:00* Test Item Value Reference Range Comments MAGNESIUM (BEAKER) (test iqfs=328) 2.3 mg/dL 1.5-3.0 BASIC METABOLIC [id number] 20:55:00* Test Item Value Reference Range Comments SODIUM (BEAKER) (test xafy=405) 134 meq/L 135-148 POTASSIUM (BEAKER) (test zcef=099) 4.3 meq/L 3.6-5.5 CHLORIDE (BEAKER) (test loxr=639) 97 meq/L 98-106 CO2 (BEAKER) (test bivw=884) 27 meq/L 20-29 BLOOD UREA NITROGEN (BEAKER) (test jimh=184) 32 mg/dL 10-26 CREATININE (BEAKER) (test jxso=044) 1.37 mg/dL 0.50-1.20 GLUCOSE RANDOM (BEAKER) (test myzj=023) 257 mg/dL 70-110 CALCIUM (BEAKER) (test uwxg=110) 9.5 mg/dL 8.5-10.5 EGFR (BEAKER) (test ajrm=5785) 37 mL/min/1.73 sq m ESTIMATED GFR IS NOT ACCURATE CREATININE CLEARANCE IN PREDICTING GLOMERULAR FILTRATION RATE. ESTIMATED GFR IS NOT APPLICABLE FOR DIALYSIS PATIENTS. RAD, ABDOMEN/KUB, 1 VIEW [id number] 17:31:00Reason for exam:->Nausea, vomiting, abdominal distentionFINAL REPORT CLINICAL HISTORY: Nausea, vomiting and abdominal distention COMPARISON: 02/27/2016 FINDINGS: 3 supine views of the abdomen are submitted. The abdominal bowel gas pattern is nonspecific. There is significant gaseous distention of the stomach. No focus of gas dilated large or small bowel is present. There is stool and gas in what appears to be normal caliber large intestine. There is no evidence of organomegaly or significant ascites. There is no acute bony abnormality. Please note that a supine examination is insensitive in the detection of free intraperitoneal air. Signed: Dennys Boudreaux MDReport Verified Date/Time: 08/21/2018 17:31:15 Reading Location: [address] Reading Room - GLUCOSE [id number] 17:10:00* Test Item Value Reference Range Comments POC-GLUCOSE METER (BEAKER) (test fsde=5604) 237 mg/dL 70-110 TESTED AT [facility] [address] [address] [address] BLOOD GAS, [id number] 16:47:00* Test Item Value Reference Range Comments PH ARTERIAL (BEAKER) (test lotv=071) 7.35 7.35-7.45 PCO2 ARTERIAL (BEAKER) (test nozi=391) 51 mmHg 35-45 PO2 ARTERIAL (BEAKER) (test unqi=001) 82 mmHg 80-90 O2 SATURATION ARTERIAL (BEAKER) (test osuq=878) 95.9 % 96.0-97.0 HCO3 ARTERIAL (BEAKER) (test bxmc=553) 28 mmol/L 21-29 BASE EXCESS ARTERIAL (BEAKER) (test lqnb=906) 1.3 mmol/L -2.0-3.0 PATIENT TEMPERATURE (BEAKER) (test oiee=4726) 37.1 C B-TYPE NATRIURETIC FACTOR (BNP)2018-08-21 13:22:00* Test Item Value Reference Range Comments B-TYPE NATRIURETIC PEPTIDE (BEAKER) (test osvw=215) 960 pg/mL 0-100 VANCOMYCIN LEVEL, [id number] 13:16:00* Test Item Value Reference Range Comments VANCOMYCIN TROUGH (BEAKER) (test mxww=134) 13.0 ug/mL 10.0-20.0 POCT-GLUCOSE [id number] 11:27:00* Test Item Value Reference Range Comments POC-GLUCOSE METER (BEAKER) (test shbt=7179) 213 mg/dL 70-110 TESTED AT [place] [address] [place] [address] POCT-GLUCOSE [id number] 08:56:00* Test Item Value Reference Range Comments POC-GLUCOSE METER (BEAKER) (test dpow=9367) 240 mg/dL 70-110 TESTED AT [place] [address] [place] [address] POCT-GLUCOSE [id number] 17:00:00* Test Item Value Reference Range Comments POC-GLUCOSE METER (BEAKER) (test masc=6802) 237 mg/dL 70-110 TESTED AT [place] [address] [place] [address] POCT-GLUCOSE [id number] 09:08:00* Test Item Value Reference Range Comments POC-GLUCOSE METER (BEAKER) (test pfpz=9642) 198 mg/dL 70-110 TESTED AT [place] [address] [place] [address] POCT-GLUCOSE [id number] 09:03:00* Test Item Value Reference Range Comments POC-GLUCOSE METER (BEAKER) (test gqeb=1436) 226 mg/dL 70-110 TESTED AT [place] [address] [place] [address] POCT-GLUCOSE [id number] 16:38:00* Test Item Value Reference Range Comments POC-GLUCOSE METER (BEAKER) (test xrrp=8236) 240 mg/dL 70-110 TESTED AT [place] [address] [place] [address] RESPIRATORY PANEL [id number] 14:06:00* Test Item Value Reference Range Comments HUMAN METAPNEUMOVIRUS (BEAKER) (test buey=3748) Not detected Not detected, Equivocal RHINOVIRUS (BEAKER) (test bjqm=4178) Not detected Not detected, Equivocal INFLUENZA A (BEAKER) (test wmsg=4842) Not detected Not detected, Equivocal INFLUENZA A (NO SUBTYPE) (test hfbe=2019) Not detected, Equivocal INFLUENZA A SUBTYPE H1 (BEAKER) (test ieod=4388) Not detected, Equivocal INFLUENZA A SUBTYPE H3 (BEAKER) (test nyxu=4122) Not detected, Equivocal INFLUENZA A SUBTYPE H1-2009 (BEAKER) (test omaf=5315) Not detected, Equivocal INFLUENZA B (BEAKER) (test ehjw=3869) Not detected Not detected, Equivocal RESPIRATORY SYNCYTIAL VIRUS (BEAKER) (test qxgv=6142) Not detected Not detected, Equivocal PARAINFLUENZA VIRUS 1 (BEAKER) (test keqh=2442) Not detected Not detected, Equivocal PARAINFLUENZA VIRUS 2 (BEAKER) (test damo=4841) Not detected Not detected, Equivocal PARAINFLUENZA VIRUS 3 (BEAKER) (test axrj=0565) Not detected Not detected, Equivocal PARAINFLUENZA VIRUS 4 (BEAKER) (test jpip=3222) Not detected Not detected, Equivocal ADENOVIRUS (BEAKER) (test xime=8643) Not detected Not detected, Equivocal CORONAVIRUS 229E (BEAKER) (test wume=2516) Not detected Not detected, Equivocal CORONAVIRUS HKU1 (BEAKER) (test mtbv=4901) Not detected Not detected, Equivocal CORONAVIRUS NL63 (BEAKER) (test wtql=0576) Not detected Not detected, Equivocal CORONAVIRUS OC43 (BEAKER) (test leen=0762) Not detected Not detected, Equivocal BORDETELLA PERTUSSIS (BEAKER) (test oejw=4544) Not detected Not detected, Equivocal CHLAMYDOPHILA PNEUMONIAE (BEAKER) (test hase=1542) Not detected Not detected, Equivocal MYCOPLASMA PNEUMONIAE (BEAKER) (test fqls=6638) Not detected Not detected, Equivocal Other viruses and bacteria not targeted by this PCR panel cannot be excluded; th erefore clinical correlation and follow up of serology, culture results, and oth er molecular studies is required. The results are not intended to be used as the sole means for clinical diagnosis or patient management decisions. This sample was tested at the [facility] using the [employer] rray Respiratory Panel. It is FDA cleared and has been verified and approved by the [facility] for clinical use on nasal swab specim ens. It is not FDA-cleared for use on bronchial wash/lavage samples. However, fo r this sample type, validation was performed and test characteristics were deter mined and approved, by [facility] for clinical use u nder the Clinical Laboratory Improvement Amendments (CLIA) of 1988 requirements. Therefore, FDA clearance is not required. This laboratory is CLIA-certified and [employer] ([employer])-accredited to perform high complexity t esting.CT, CHEST, WITHOUT [id number] 10:24:00FINAL REPORT CT of the Chest dated 08/19/2018 COMPARISON: March 06, 2016 CLINICAL INFORMATION: Cough, persistent, xray nondiagnostic Comment: Axial images of the chest were obtained from thoracic inlet to the upper abdomen without intravenous contrast. This exam was performed according to our departmental dose- optimization program, which includes automated exposure control, adjustment of the mA and/or kV according to patient size and/or use of interactive reconstruction technique. Heart is enlarged. Atherosclerotic calcification is seen in the thoracic aorta and coronary arteries. Great vessels are unr emarkable. No adenopathy in the mediastinum or perihilar region. Trachea and daphney nstem bronchi are patent. There is interval increase in number of pulmonary nod ules. The largest nodule measures approximately 5 mm in diameter in the right up per lobe. A focal airspace disease is seen in the right lower lobe in the right lower lobe with air bronchograms suggestive of pneumonia. Scarring versus subseg mental atelectasis is seen in the right mid lobe, lingula, and left lung base. N o pleural effusion or pleural based mass is seen. Visualized upper abdomen demon strates a 2.1 x 2.5 cm cyst is seen in the midpole right kidney. Impression: 1. Right lower lobe pneumonia.2. Nonspecific pulmonary nodules. Recommend follow-up with repeat CT of the chest in 12 months.3. Cardiomegaly. Signed: Abdullahi Salas Verified Date/Time: 08/19/2018 10:24:51 Reading Location: [facility] B1 C013Y CT Body Reading Room Electronically signed by: ABDULLAHI SALAS M.D. on 2018 10:24 AM POCT-GLUCOSE [id number] 09:16:00* Test Item Value Reference Range Comments POC-GLUCOSE METER (BEAKER) (test oxxr=3341) 188 mg/dL 70-110 TESTED AT [facility] [address] [address] TROPONIN [id number] 02:59:00* Test Item Value Reference Range Comments TROPONIN I (BEAKER) (test ppro=962) 0.01 ng/mL 0.00-0.03 Troponin I (TnI) levels must be interpreted in the context of the presenting sym ptoms and the clinical findings. Elevated TnI levels indicate myocardial damage, but are not specific for ischemic heart disease. Elevated TnI levels are seen in patients with other cardiac conditions (including myocarditis and congestive h eart failure), and slight TnI elevations occur in patients with other conditions , including sepsis, renal failure, acidosis, acute neurological disease, and per sistent tachyarrhythmia.TROPONIN [id number] 23:37:00* Test Item Value Reference Range Comments TROPONIN I (BEAKER) (test ajxs=649) 0.01 ng/mL 0.00-0.03 Troponin I (TnI) levels must be interpreted in the context of the presenting sym ptoms and the clinical findings. Elevated TnI levels indicate myocardial damage, but are not specific for ischemic heart disease. Elevated TnI levels are seen in patients with other cardiac conditions (including myocarditis and congestive h eart failure), and slight TnI elevations occur in patients with other conditions , including sepsis, renal failure, acidosis, acute neurological disease, and per sistent tachyarrhythmia.TSH/FREE T4 IF [id number] 21:34:00* Test Item Value Reference Range Comments THYROID STIMULATING HORMONE (BEAKER) (test mvyk=198) 4.82 uIU/mL 0.35-5.50 RAPID INFLUENZA A&B [id number] 21:32:00* Test Item Value Reference Range Comments RAPID INFLUENZA A AG (BEAKER) (test ebgt=3179) Negative Negative, Inconclusive RAPID INFLUENZA B AG (BEAKER) (test lmvr=9014) Negative Negative, Inconclusive B-TYPE NATRIURETIC FACTOR (BNP)2018-08-18 21:24:00* Test Item Value Reference Range Comments B-TYPE NATRIURETIC PEPTIDE (BEAKER) (test rypb=856) 356 pg/mL 0-100 TROPONIN [id number] 21:20:00* Test Item Value Reference Range Comments TROPONIN I (BEAKER) (test bbav=130) < ng/mL 0.00-0.03 Troponin I (TnI) levels must be interpreted in the context of the presenting sym ptoms and the clinical findings. Elevated TnI levels indicate myocardial damage, but are not specific for ischemic heart disease. Elevated TnI levels are seen in patients with other cardiac conditions (including myocarditis and congestive h eart failure), and slight TnI elevations occur in patients with other conditions , including sepsis, renal failure, acidosis, acute neurological disease, and per sistent tachyarrhythmia.COMPREHENSIVE METABOLIC [id number] 21:19:00* Test Item Value Reference Range Comments TOTAL PROTEIN (BEAKER) (test rusk=635) 7.4 gm/dL 6.0-8.5 ALBUMIN (BEAKER) (test jmbh=7430) 4.1 g/dL 3.5-5.0 ALKALINE PHOSPHATASE (BEAKER) (test rxqt=904) 59 U/L 30-115 BILIRUBIN TOTAL (BEAKER) (test btfq=675) 0.5 mg/dL 0.1-1.2 SODIUM (BEAKER) (test zlxh=288) 129 meq/L 135-148 POTASSIUM (BEAKER) (test xaxz=620) 4.5 meq/L 3.6-5.5 CHLORIDE (BEAKER) (test ftrr=377) 95 meq/L 98-106 CO2 (BEAKER) (test giwe=552) 25 meq/L 20-29 BLOOD UREA NITROGEN (BEAKER) (test wraa=553) 11 mg/dL 10-26 CREATININE (BEAKER) (test nxwy=338) 1.23 mg/dL 0.50-1.20 GLUCOSE RANDOM (BEAKER) (test bism=750) 99 mg/dL 70-110 CALCIUM (BEAKER) (test swbp=357) 9.6 mg/dL 8.5-10.5 AST (SGOT) (BEAKER) (test cnaq=332) 21 U/L 5-40 ALT (SGPT) (BEAKER) (test lkol=720) 14 U/L 5-50 EGFR (BEAKER) (test jjnu=4479) 41 mL/min/1.73 sq m ESTIMATED GFR IS NOT ACCURATE CREATININE CLEARANCE IN PREDICTING GLOMERULAR FILTRATION RATE. ESTIMATED GFR IS NOT APPLICABLE FOR DIALYSIS PATIENTS. LACTIC ACID, [id number] 21:14:00* Test Item Value Reference Range Comments LACTATE BLOOD VENOUS (2) (BEAKER) (test ewio=4187) 0.6 mmol/L 0.5-2.2 CBC W/PLT COUNT & AUTO [id number] 20:56:00* Test Item Value Reference Range Comments WHITE BLOOD CELL COUNT (BEAKER) (test mdbx=419) 8.7 K/ L 4.0-10.0 RED BLOOD CELL COUNT (BEAKER) (test jojn=648) 3.99 M/ L 4.00-5.00 HEMOGLOBIN (BEAKER) (test mgtu=858) 12.1 GM/DL 12.0-15.5 HEMATOCRIT (BEAKER) (test pkrc=418) 35.4 % 36.0-46.0 MEAN CORPUSCULAR VOLUME (BEAKER) (test yfnt=826) 88.7 fL 82.0-99.0 MEAN CORPUSCULAR HEMOGLOBIN (BEAKER) (test xejl=512) 30.3 pg 27.0-33.0 MEAN CORPUSCULAR HEMOGLOBIN CONC (BEAKER) (test jemr=524) 34.2 GM/DL 32.0-36.0 RED CELL DISTRIBUTION WIDTH (BEAKER) (test clcy=790) 12.5 % 12.0-15.0 PLATELET COUNT (BEAKER) (test iuhy=965) 242 K/CU MM 150-430 MEAN PLATELET VOLUME (BEAKER) (test qntu=637) 9.8 fL 6.0-11.5 NUCLEATED RED BLOOD CELLS (BEAKER) (test cmwn=663) 0 /100 WBC 0-0 NEUTROPHILS RELATIVE PERCENT (BEAKER) (test bquq=104) 74 % LYMPHOCYTES RELATIVE PERCENT (BEAKER) (test ksfn=241) 14 % MONOCYTES RELATIVE PERCENT (BEAKER) (test gkzz=271) 10 % EOSINOPHILS RELATIVE PERCENT (BEAKER) (test vtxg=376) 2 % BASOPHILS RELATIVE PERCENT (BEAKER) (test ewyg=932) 1 % NEUTROPHILS ABSOLUTE COUNT (BEAKER) (test kped=142) 6.42 K/ L 1.80-8.00 LYMPHOCYTES ABSOLUTE COUNT (BEAKER) (test esiq=262) 1.22 K/ L 1.48-4.50 MONOCYTES ABSOLUTE COUNT (BEAKER) (test arrn=576) 0.85 K/ L 0.00-1.30 EOSINOPHILS ABSOLUTE COUNT (BEAKER) (test aszo=409) 0.13 K/ L 0.00-0.50 BASOPHILS ABSOLUTE COUNT (BEAKER) (test tqew=176) 0.04 K/ L 0.00-0.20 IMMATURE GRANULOCYTES-RELATIVE PERCENT (BEAKER) (test zsdv=5683) 1 % 0-0 RAD, CHEST, 2 [id number] 20:22:00Reason for exam:->coughFINAL REPORT EXAMINATION: 2 view chest CLINICAL INDICATION: Cough IMPRESSION: Compared with 03/11/2016. A midline sternotomy is again noted. Overall aeration of the lungs has improved in the interval. However, opacities are noted in both lungs with a predominantly basilar distribution which are similar but possibly increased from previous. Although a component may reflect a telectasis or scarring, pulmonary edema or a pneumonia should also be considered . An underlying mass lesion cannot be excluded on today's limited study. No defi nite evidence of a large pleural effusion or pneumothorax. Several of the ribs h ave irregular margins suggesting possible sequela from fracture, chronicity inde terminate. If there is persistent clinical concern, consider chest CT. Dedicate d rib series could also be performed if there is concern for acute or subacute r ib fracture. Signed: Sara Grace MDReport Verified Date/Time: 08/18/2018 20:22 :29 Reading Location: [address] Reading Room Electronically s igned by: SARA GRACE M.D. on 08/18/2018 08:22 PM COMPREHENSIVE METABOLIC [id number] 16:31:00* Test Item Value Reference Range Comments TOTAL PROTEIN (BEAKER) (test gzvp=287) 7.9 gm/dL 6.0-8.5 Specimen slightly hemolyzed ALBUMIN (BEAKER) (test zmns=7607) 4.0 g/dL 3.5-5.0 Specimen slightly hemolyzed ALKALINE PHOSPHATASE (BEAKER) (test mmml=504) 77 U/L 30-115 BILIRUBIN TOTAL (BEAKER) (test fada=978) 0.4 mg/dL 0.1-1.2 Specimen slightly hemolyzed SODIUM (BEAKER) (test hpsw=336) 139 meq/L 135-148 POTASSIUM (BEAKER) (test lxzg=025) 4.2 meq/L 3.6-5.5 Specimen slightly hemolyzed CHLORIDE (BEAKER) (test ykxm=098) 99 meq/L 98-106 CO2 (BEAKER) (test zthl=996) 30 meq/L 20-29 BLOOD UREA NITROGEN (BEAKER) (test aoob=879) 24 mg/dL 10-26 CREATININE (BEAKER) (test unkw=737) 1.43 mg/dL 0.50-1.20 Specimen slightly hemolyzed GLUCOSE RANDOM (BEAKER) (test gltm=754) 233 mg/dL 70-110 CALCIUM (BEAKER) (test tomy=627) 9.4 mg/dL 8.5-10.5 AST (SGOT) (BEAKER) (test xvue=520) 28 U/L 5-40 Specimen slightly hemolyzed ALT (SGPT) (BEAKER) (test lxmj=663) 20 U/L 5-50 Specimen slightly hemolyzed EGFR (BEAKER) (test hwpz=9179) 35 mL/min/1.73 sq m ESTIMATED GFR IS NOT ACCURATE CREATININE CLEARANCE IN PREDICTING GLOMERULAR FILTRATION RATE. ESTIMATED GFR IS NOT APPLICABLE FOR DIALYSIS PATIENTS. CT, BRAIN, WITHOUT [id number] 16:19:00Reason for exam:->FALLtripped and fell at [facility]. +hit head, -LOC. c/o dizziness when getting up. c/o right parietal painWhat is the patient's sedation requirement?->No SedationFINAL REPORT CT head without contrast INDICATION: Fall, hit head. TECHNIQUE: Axial noncontrast CT images through the head were obtained. This exam was performed according to our departmental dose optimization program which includes automated exposure control, adjustment of the mA and/or kV accord ing to patient size and/or use of iterative reconstruction technique. COMPARISON : CT head 03/02/2016 FINDINGS:There is no focal scalp hematoma or calvarial fract ure. No acute intra- or extra-axial hemorrhage is seen. Generalized volume loss and vascular calcifications are noted. Microvascular ischemic changes are chroni c appearing. There is no hydrocephalus, mass effect, or midline shift. The visua lized sinuses and mastoid air cells are well aerated. There has been cataract nuñez rgery. IMPRESSION: No acute intracranial hemorrhage or calvarial fracture. Chron ic appearing microvascular and involutional changes. Signed: Tomy Dominguez MDReport Verified Date/Time: 02/10/2017 16:19:47 Reading Location: [facility] Reading Room ALYSIS W/ REFLEX URINE [id number] 16:17:00* Test Item Value Reference Range Comments COLOR (BEAKER) (test zkcm=250) Yellow CLARITY (BEAKER) (test ggfn=520) Clear SPECIFIC GRAVITY UA (BEAKER) (test dwim=510) <= 1.001-1.035 PH UA (BEAKER) (test agpv=274) 7.0 5.0-8.0 PROTEIN UA (BEAKER) (test dlza=971) Negative Negative GLUCOSE UA (BEAKER) (test cwdh=547) Negative Negative KETONES UA (BEAKER) (test jrso=883) Negative Negative BILIRUBIN UA (BEAKER) (test xrly=085) Negative Negative BLOOD UA (BEAKER) (test taix=300) Trace Negative NITRITE UA (BEAKER) (test oihf=440) Negative Negative LEUKOCYTE ESTERASE UA (BEAKER) (test gglo=271) Moderate Negative UROBILINOGEN UA (BEAKER) (test ivwg=251) 0.2 mg/dL 0.2-1.0 BACTERIA (BEAKER) (test pdxt=450) Few RBC UA-MANUAL (BEAKER) (test zxex=8666) <5 /HPF WBC UA-MANUAL (BEAKER) (test gjew=7783) 10-20 /HPF SQUAMOUS EPITHELIAL MANUAL (BEAKER) (test btjn=7067) <5 /HPF SOURCE(BEAKER) (test pkna=2260) CBC W/PLT COUNT & AUTO [id number] 16:11:00* Test Item Value Reference Range Comments WHITE BLOOD CELL COUNT (BEAKER) (test iexu=739) 9.1 K/ L 4.0-10.0 RED BLOOD CELL COUNT (BEAKER) (test vnht=894) 4.64 M/ L 4.00-5.00 HEMOGLOBIN (BEAKER) (test fvat=245) 14.4 GM/DL 12.0-15.0 HEMATOCRIT (BEAKER) (test luuq=691) 41.2 % 36.0-45.0 MEAN CORPUSCULAR VOLUME (BEAKER) (test blqe=158) 88.8 fL 82.0-99.0 MEAN CORPUSCULAR HEMOGLOBIN (BEAKER) (test cyiv=542) 31.0 pg 27.0-33.0 MEAN CORPUSCULAR HEMOGLOBIN CONC (BEAKER) (test kqru=637) 35.0 GM/DL 32.0-36.0 RED CELL DISTRIBUTION WIDTH (BEAKER) (test ljzu=833) 13.1 % 10.3-14.2 PLATELET COUNT (BEAKER) (test yknk=274) 188 K/CU MM 150-430 MEAN PLATELET VOLUME (BEAKER) (test ytwf=123) 10.0 fL 6.5-10.5 NUCLEATED RED BLOOD CELLS (BEAKER) (test rjes=463) 0 /100 WBC 0-0 NEUTROPHILS RELATIVE PERCENT (BEAKER) (test vdal=310) 62 % LYMPHOCYTES RELATIVE PERCENT (BEAKER) (test vguo=645) 28 % MONOCYTES RELATIVE PERCENT (BEAKER) (test xigh=778) 8 % EOSINOPHILS RELATIVE PERCENT (BEAKER) (test kyvc=536) 2 % BASOPHILS RELATIVE PERCENT (BEAKER) (test exqd=781) 0 % NEUTROPHILS ABSOLUTE COUNT (BEAKER) (test jaih=156) 5.65 K/ L 1.80-8.00 LYMPHOCYTES ABSOLUTE COUNT (BEAKER) (test kwrp=969) 2.52 K/ L 1.48-4.50 MONOCYTES ABSOLUTE COUNT (BEAKER) (test zaxg=558) 0.69 K/ L 0.00-1.30 EOSINOPHILS ABSOLUTE COUNT (BEAKER) (test cxvq=420) 0.17 K/ L 0.00-0.50 BASOPHILS ABSOLUTE COUNT (BEAKER) (test gfvx=297) 0.04 K/ L 0.00-0.20
--- NOTE | 2018-12-14 07:15 | NUR ---
SPIRITUAL CARE - Pre-Surgery Assessment: Pt in bed. Pt reported supportive attention from family and friends. Intervention: I provided pastoral presence, hospitality, sympathetic listening, and prayer. I acquainted pt with availability of roulette dealer while hospitalized. Outcome: Pt expressed appreciation for visit. No need for follow up indicated at this time. [facility] Spiritual Care Department O: [phone] Pager: [phone] ([phone] calling from)
[2018-12-14 09:35] VITALS: BP 135/65
== END | disposition home or self-care (01) ==
LOC: ENDO 05:45
PROVIDERS: ATTEND Internal Medicine Gastroenterology
DX: K92.1 Melena (principal); D12.2 Benign neoplasm of ascending colon; K57.30 Diverticulosis of large intestine without perforation or abscess without bleeding; K62.6 Ulcer of anus and rectum; K59.00 Constipation, unspecified; R12 Heartburn; J44.9 Chronic obstructive pulmonary disease, unspecified; I25.810 Atherosclerosis of coronary artery bypass graft(s) without angina pectoris; E11.22 Type 2 diabetes mellitus with diabetic chronic kidney disease; I13.0 Hypertensive heart and chronic kidney disease with heart failure and stage 1 through stage 4 chronic kidney disease, or unspecified chronic kidney disease; N18.9 Chronic kidney disease, unspecified; I69.898 Other sequelae of other cerebrovascular disease; I48.91 Unspecified atrial fibrillation; E03.9 Hypothyroidism, unspecified; I50.9 Heart failure, unspecified; Z88.6 Allergy status to analgesic agent; Z88.8 Allergy status to other drugs, medicaments and biological substances; Z01.810 Encounter for preprocedural cardiovascular examination; Z01.812 Encounter for preprocedural laboratory examination; Z79.4 Long term (current) use of insulin; Z79.02 Long term (current) use of antithrombotics/antiplatelets; Z79.82 Long term (current) use of aspirin; Z68.37 Body mass index [BMI] 37.0-37.9, adult; Z95.1 Presence of aortocoronary bypass graft; Z80.0 Family history of malignant neoplasm of digestive organs
CPT/HCPCS: 36415; 45378; 85025; 93005; J2704